=== PATIENT | female | born 1955 | race Caucasian/White ===

== ENCOUNTER 2019-12-27 12:29 | Outpatient (CLI) | payer MEDICARE, BC, SELFPAY ==
--- NOTE | ~2019-12-27 | XR_ITS ---
EXAMINATION: XR abdomen/kub 1V EXAM DATE: 12/27/2019 12:52 INDICATION: Kidney stones. TECHNIQUE: Frontal projection(s) of the abdomen for interpretation. Comparison is made to prior exami nation from 03/31/2019. FINDINGS: There is expected amount of colonic stool and gas. No small bowel dilation, nonobstructiv e bowel gas pattern. Probable reidentification of right nephrolithiasis, may measure up to 5 or 6 mm , but there is stool obscuring both renal contours. There is no organomegaly suspected. The bones are unremarkable. There is no free intraperitoneal air. The lung bases are clear. IMPRESSION: Probable right nephrolithiasis. Reviewed, dictated and finalized at location A.
== END 2019-12-27 12:30 | disposition home or self-care (01) ==
LOC: ANHIMG 12:39
PROVIDERS: PCP Family Medicine; Visit Provider Urology
DX: N20.0 Calculus of kidney (principal)
CPT/HCPCS: 74018

== ENCOUNTER 2020-12-31 09:27 | Outpatient (CLI) | payer MEDICARE, BC, SELFPAY ==
--- NOTE | ~2020-12-31 | XR_ITS ---
EXAMINATION: XR abdomen/kub 1V INDICATION: Calculus of kidney TECHNIQUE: Supine views of the abdomen were obtained on 2 radiographs. COMPARISON: 12/27/2019 FINDINGS: Bowel contents project over the kidneys limiting sensitivity for renal stones. There appear to be at least four stones of the right kidney measuring up to 5 mm. No definite stones are identifi ed in the left kidney, along the expected courses of the ureters, or within the urinary bladder. A mo derate volume of colonic stool is present. There is mild osteoarthritis of the hips. Moderate lumbar spondylosis is noted. IMPRESSION: 1. Likely right nephrolithiasis. Reviewed, dictated and finalized at location B.
== END 2020-12-31 09:28 | disposition home or self-care (01) ==
LOC: ANHIMG 09:33
PROVIDERS: PCP Family Medicine; Visit Provider Urology
DX: N20.0 Calculus of kidney (principal)
CPT/HCPCS: 74018

== ENCOUNTER 2021-08-15 15:53 | Outpatient (CLI) | payer MEDICARE, BC, SELFPAY ==
--- NOTE | ~2021-08-15 | CT_ITS ---
EXAMINATION: CT abdomen pelvis wo con DATE: 08/15/2021 16:15 INDICATION: Calculus of kidney. TECHNIQUE: Computed tomography (CT) of the abdomen and pelvis was performed without intravenous contr ast. Automated exposure control and iterative reconstruction technique were employed. The dose-length product was 267.23 mGy-cm. COMPARISON: CT abdomen and pelvis 02/16/2019 FINDINGS: The visualized portions of the lung bases demonstrate a calcified right lung nodule, consis tent with old granulomatous disease. No pleural effusion. The heart size is normal. No pericardial ef fusion. There are surgical changes in the stomach. There is a small sliding hiatal hernia. Calcified right hilar lymph nodes are consistent with old granulomatous disease. Calcifications in the liver an d spleen are consistent with old granulomatous disease. The gallbladder is normal in size. The pancre as and adrenal glands are normal. There is cortical thinning of the kidneys. There is a 6 mm cyst in left kidney. There are 7 stones in right kidney measuring up to 8 mm. There are 2 stones in left kidn ey measuring up to 3 mm. There is diverticulosis of the colon without evidence of diverticulitis. The appendix is normal. There are no pathologically enlarged lymph nodes. There is no free intraperitone al fluid. There is severe thoracolumbar spondylosis. IMPRESSION: 1. Bilateral nonobstructing kidney stones. Reviewed, dictated and finalized at location E. WO[employer]
== END 2021-08-15 15:54 | disposition home or self-care (01) ==
LOC: ANHIMG 15:57
PROVIDERS: PCP Family Medicine; Visit Provider Urology
DX: N20.0 Calculus of kidney (principal)
CPT/HCPCS: 74176

== ENCOUNTER 2021-09-04 08:12 | Outpatient (CLI) | payer MEDICARE, BC, SELFPAY ==
--- NOTE | 2021-09-04 08:26 | ECG_ITS ---
Measurements Intervals Richards Rate: 66 P: 39 NH: 142 QRS: 20 QRSD: 78 T: 48 QT: 362 QTc: 381 Interpretive Statements SINUS RHYTHM NORMAL ECG Electronically Signed On 09-04-2021 9:59:41 ANIMAL SKINNER by Bandar Hawk M.D.
[2021-09-04 08:49] LABS: Hematocrit 39.2 % (37.0-47.0); Hemoglobin 13.2 g/dL (12.0-15.0)
[2021-09-04 08:58] LABS: Prothrombin Time 12.7 Seconds (11.1-14.7)
[2021-09-04 08:59] LABS: Partial Thromboplastin Time 26.9 SECONDS (22.3-36.8)
[2021-09-04 09:00] LABS: Anion Gap 5 mmol/L (8-16); Blood Urea Nitrogen 17 mg/dL (7-17); Calcium 9.1 mg/dL (8.4-10.2); Carbon Dioxide 32 mmol/L (22-30); Chloride 102 mmol/L (98-107); Estimated Glomerular Filt Rate > 60; Glucose 135 mg/dL (65-110); Potassium 4.4 mmol/L (3.4-5.0); Sodium 139 mmol/L (137-145)
== END 2021-09-04 08:13 | disposition home or self-care (01) ==
LOC: ANHSURGERY 08:18
PROVIDERS: Anesthesiology; PCP Family Medicine; Visit Provider Urology
DX: Z01.818 Encounter for other preprocedural examination (principal); N20.0 Calculus of kidney; I10 Essential (primary) hypertension; E11.9 Type 2 diabetes mellitus without complications; Z79.4 Long term (current) use of insulin; D64.9 Anemia, unspecified
CPT/HCPCS: 36415; 80048; 85014; 85018; 85610; 85730; 87086; 87088; 93005

== ENCOUNTER 2021-09-12 01:55 | Day surgery (SDC) | payer MEDICARE, BC, SELFPAY ==
[2021-09-02 09:37] VITALS: BMI 28.3
--- NOTE | 2021-09-02 09:51 | PC.NURSE ---
Report to the Outpatient Waiting Room, entrance under the green pavilion located off [facility], at time _0600_ on date _09/12/21__. OR Time: __0730__. - You and your visitor will be asked a series of questions to screen for COVID 19 for your protection. - A mask is required within the hospital. Preoperative COVID Testing Requirements: NONE Patients may have clear liquids (water, carbonated beverages, clear teas, apple juice) until 3 hours prior to surgery (0430 AM) with a maximum of 20 ounces. - No food from midnight until time of surgery Take the following medications with a SIP of water the morning of surgery: _LEVOTHYROXINE__ Medications to discontinue per DR. KYLE - ALL VITAMINS AND SUPPLEMENTS, PT STATES 7 DAYS PRIOR TO SURGERY_ Date to take last dose__09/04/21___ Please no make-up, nail czech, hairspray, perfume, deodorant, or body powder the day of surgery. No jewelry (including any body piercings) or valuables the day of surgery, leave them at home. Please take a shower or bath the night before, or the morning of, surgery with an antibacterial soap. Wear comfortable, loose fitting clothing. - Jewelry must be removed prior to entering the operating room. Rings and piercings that are not removed may be cut off. - The hospital will not accept responsibility for valuables. - Please leave all valuables, including medications, at home the day of surgery. If you are going home after surgery, a licensed moving van driver must drive you home. - NO public transportation without another adult. - We recommend that an adult stay with you for 24 hours following discharge. - We also recommend that you do not drive, make important decision, drink alcoholic beverages, or take any drugs that were not prescribed by your health care provider for at least 24 hours after your discharge time. One visitor will be allowed to accompany the patient into the hospital. Patients visitor will be instructed to remain with patient at all times or leave the building. We will allow the visitor to come back to the postoperative area when patient is ready. Follow any additional instructions given to you from your surgeon. Telephone instructions given to ___PT and asked if any additional questions and then verbalized understanding. Patient advised to call surgeon office or pre surgery nurse liaison [phone] if any additional questions.
[2021-09-12] VITALS (7 sets, daily range): BP systolic 113–147; BP diastolic 72–86; PULSE 56–75; RESP 10–18; TEMP 36.1–36.4; O2SAT 100; BMI 28.1
--- NOTE | ~2021-09-12 | XR_ITS ---
EXAMINATION: XR abdomen/kub 1V DATE: 09/12/2021 06:07 INDICATION: Urolithiasis. TECHNIQUE: A supine view of the abdomen on 2 radiographs was obtained. COMPARISON: Abdomen radiograph 12/31/2020, CT abdomen and pelvis 08/15/2021 FINDINGS: There are no dilated loops of bowel. There are multiple stones in right kidney measuring up to 8 mm. IMPRESSION: 1. Multiple stones in right kidney measuring up to 8 mm. Reviewed, dictated and finalized at location A. R [employer]ES[employer]TAIN
--- NOTE | 2021-09-12 06:32 | WPDHPUPDATE1 ---
History and Physical Update Update Date/Time: 09/12/21 06:32 History and Physical has been reviewed, including an updated exam of the patient. There are NO changes in the patient's condition. Risks, benefits, and alternatives have been discussed and questions answered. Patient agrees to proceed with procedure.
--- NOTE | 2021-09-12 06:45 | SUR.PREOP ---
0605; PT HAS GLUCOSE MONITOR TO RT UPPER/OUTER ARM
--- NOTE | 2021-09-12 07:15 | WPDANESEPPF ---
Anes - Initial Pre Proc Eval Procedure: Operation Date: 09/12/21 07:30 Proposed Procedures p Right Extracorporeal Shock Wave Lithotripsy, - Misha Huddleston MD s Cystoscopy, Right Stent Placement - Misha Huddleston MD Date/Time: 09/12/21 07:15 Surgeon: Misha Huddleston MD Pre Op Diagnosis: right kidney stone Patient Data Age: 65 Gender: F Height: 1.68 m Weight: 79.1 kg Last Vital Signs Temp 36.4 C L 09/12/21 06:44 Pulse 75 09/12/21 06:44 Resp 18 09/12/21 06:44 BP 122/74 09/12/21 06:44 Pulse Ox 100 09/12/21 06:44 Allergies Allergy/AdvReac Type Severity Reaction Status Date / Time ibuprofen AdvReac Mild H/O Verified 09/12/21 06:22 GASTRIC BYPASS pseudoephedrine AdvReac Unknown Agitated Verified 09/12/21 06:22 Home Medications Medication Instructions Recorded Confirmed Type roojbea-sfnprtvmc-torv tablet 1 tablet PO BID 07/04/19 09/12/21 History cetirizine 10 mg tablet 10 mg PO DAILY 07/04/19 09/12/21 History cholecalciferol (vitamin D3) 50 2,000 unit PO DAILY 07/04/19 09/12/21 History mcg (2,000 unit) tablet mecobalamin (vitamin B12) 1,000 1,000 mcg SUBLINGUAL EVERY OTHER 07/04/19 09/12/21 History mcg disintegrating DAY tablet,sublingual jswhwndt-lhjnlwe-dqh-iron 18 mg-FA 1 tablet PO BID 07/04/19 09/02/21 History 400 mcg-vit K 80 mcg-hrb#244 tablet vitamin E (dl, acetate) 180 mg 800 unit PO DAILY 07/04/19 09/12/21 History (400 unit) capsule docusate sodium 100 mg capsule 100 mg PO BID #180 cap 01/12/20 09/02/21 Rx insulin glargine 100 unit/mL (3 9 unit SUB-Q QAM ml 01/12/20 09/02/21 History mL) subcutaneous pen insulin lispro 100 unit/mL See Rx Instructions .ROUTE 01/12/20 09/02/21 History subcutaneous pen .COMPLEX ml blood-glucose meter,continuous #1 ea 07/09/20 07/14/21 History blood-glucose sensor #3 ea 07/09/20 07/14/21 History blood-glucose transmitter #1 ea 07/09/20 07/14/21 History ferrous sulfate 325 mg (65 mg 325 mg PO DAILY #90 tablet 07/14/21 09/12/21 Rx iron) tablet metformin 500 mg tablet 500 mg PO BID #180 tablet 07/14/21 09/02/21 Rx semaglutide 0.5 mg SUBCUT WEEKLY ml 07/14/21 09/02/21 History Lactobacillus acidophilus 10,000 mmu cells PO DAILY 09/02/21 09/12/21 History [Probiotic] biotin 5,000 mcg PO DAILY 09/02/21 09/12/21 History doxycycline hyclate 100 mg QAM 09/02/21 09/02/21 History levothyroxine 88 mcg PO QAM 09/02/21 09/12/21 History lisinopril 2.5 mg PO QAM 09/02/21 09/02/21 History montelukast [Singulair] 10 mg PO HS 09/02/21 09/02/21 History rosuvastatin 5 mg PO HS 09/02/21 09/02/21 History Patient hx anesthesia problems: none Family hx anesthesia problems: other (slow to awaken) Results Review: All pre-operative results and documents have been reviewed as part of the pre-operative evaluation. [facility] Past Medical History Medical History Essential (primary) hypertension HLD (hyperlipidemia) Hypothyroidism NAFL (nonalcoholic fatty liver) TEJAL (obstructive sleep apnea) Type 2 diabetes mellitus with hyperglycemia, with long-term current use of insulin Unspecified asthma, uncomplicated Surgical History Surgical History History of carpal tunnel release Status post gastric bypass for obesity Family History Family History Sister Family history of obesity Family history of rheumatoid arthritis Family history of type 2 diabetes mellitus Mother Hypertension Family history of renal failure Father Family history of hypothyroidism Family history of coronary artery disease Family history of type 2 diabetes mellitus Social History Social History Smoking status: Never smoker Second hand tobacco smoke exposure: No Alcohol intake: never Substance use: never Substance use type:
[2021-09-12] MEDS: LACTATED RINGERS 1,000 ML 30 ML IV CONT (07:20)
[2021-09-12] MEDS: ceFAZolin 2 GM/D5W 50 ML 2 GM/50 ML BAG IVPB (07:25)
--- NOTE | 2021-09-12 07:50 | P.OP_ITS ---
Procedure Note - Detailed Date of Procedure 09/12/21 Pre-op Diagnosis Right kidney stone Post-op Diagnosis Same Procedure Performed Cysto., right ureteral stent placement, right ESWL Surgeon Misha Huddleston MD Anesthesia General Description of Procedure The patient was brought to the operative suite where she was placed in the frog- legged position on the Dornier lithotripter table. Flexible cystoscopy was undertaken with a 16F flexible cystoscopy. Her urethra and bladder neck were endoscopically normal. The bladder mucosa was normal and there was a single, orthotopic ureteral orifice bilaterally. A 0.035 guidewire was advanced into the right renal pelvis under fluoroscopy. A 4.8F J-J ureteral stent was positioned with the proximal coil in the renal pelvis and the distal coil in the bladder. The patient was then repositioned in the supine position and the focal point of the lithotriptor was placed at the uppermost of several (3 dominant collections) stones in the right kidney. A total of 2500 shocks were delivered at a power setting of 4. There appeared to be good fragmentation of the stone. The patient tolerated the procedure well and was taken to the recovery room in good condition. Estimated Blood Loss 0 Drains Yes Packing No Pathology None sent Complications No immediate complications Condition Stable Disposition PACU
[2021-09-12 08:53] LABS: Glucose Point of Care 88 mg/dl (65-105)
== END 2021-09-12 10:08 | disposition home or self-care (01) ==
PROVIDERS: PCP Family Medicine; Visit Provider Urology
PROC: (CPT 50590; principal; 2021-09-12 07:30)
PROC: (CPT 52352; 2021-09-12 07:30)
DX: N20.0 Calculus of kidney (principal); I10 Essential (primary) hypertension; E78.5 Hyperlipidemia, unspecified; E03.9 Hypothyroidism, unspecified; K75.81 Nonalcoholic steatohepatitis (NASH); G47.33 Obstructive sleep apnea (adult) (pediatric); E11.9 Type 2 diabetes mellitus without complications; J45.909 Unspecified asthma, uncomplicated; Z98.84 Bariatric surgery status; Z79.4 Long term (current) use of insulin; Z79.84 Long term (current) use of oral hypoglycemic drugs; Z79.899 Other long term (current) drug therapy
CPT/HCPCS: 52332; 50590; 74018; 82948; A9270; C1769; C2617; J0131; J0690; J2250; J2405; J2704; J7030; J7120

== ENCOUNTER 2021-09-19 13:01 | Outpatient (CLI) | payer MEDICARE, BC, SELFPAY ==
--- NOTE | ~2021-09-19 | XR_ITS ---
XR abdomen/kub 1V 09/19/2021 13:22 Indication: Renal stones Procedure: KUB Comparison: Comparison to multiple prior studies sequentially, with oldest reviewed study dated 03/31. Findings: There are right renal stones. The left kidney is obscured by bowel content, although no def inite left renal stones are seen. There is a right internal ureteral stent. Bowel gas pattern is nono bstructive. There is large amount of retained fecal material in the colon. Impression: 1: Right nephrolithiasis with right internal ureteral stent in expected position. Reviewed, dictated and finalized at location B. Impression: 1: Right nephrolithiasis with right internal ureteral stent in expected positio n.
== END 2021-09-19 13:02 | disposition home or self-care (01) ==
PROVIDERS: PCP Family Medicine; Visit Provider Urology
DX: N20.0 Calculus of kidney (principal)
CPT/HCPCS: 74018

== ENCOUNTER 2021-10-02 10:27 | Outpatient (CLI) | payer MEDICARE, BC, SELFPAY ==
--- NOTE | ~2021-10-02 | XR_ITS ---
XR abdomen/kub 1V DATE: 10/02/2021 10:50 INDICATION: Increasing abdominal pain 2 weeks after lithotripsy of right kidney TECHNIQUE: AP projection, 2 views COMPARISON: 09/19/2021 KUB FINDINGS: Interval removal of right internal urinary stent since 09/19/2021; since that date, there is now a 5.3 x 8.3 mm calcified calculus overlying the distal right ureter.. Another new finding is an approximately 5 x 6.8 mm calcification overlies the base of the right pelvis, either the very distal right ureter or urinary bladder. Approximately 5 calcifications are noted overlying the right renal silhouette, the largest measuring approximately 8 mm at the lower pole. Approximately 3 or 4 smaller calcifications overlying the upper pole of the right kidney. Prominent bowel gas and fecal shadows overlie the left kidney, limiting evaluation. Noncontrast CT ab domen pelvis would be more sensitive and accurate for detection of urinary tract calculi. There is a prominent amount of fecal material in the rectum and colon, particularly the right colon a nd proximal to mid transverse colon. There is gaseous distention of multiple small bowel and colon se gments but no apparent bowel obstruction. No visceromegaly is evident. IMPRESSION: Removal of right internal urinary stent since 09/19/2021; there are 2 large calcified calc divina in the distal right ureter and/or urinary bladder since 09/19/2021, previously in the right renal area. Right nephrolithiasis Approximately 5.3 x 8.3 mm calcified calculus of distal right ureter Reviewed, dictated and finalized at Location A. Reviewed, dictated and finalized at location A. IMPRESSION: Removal of right internal urinary stent since 09/19/2021; there are 2 large calcified calculi in the distal right ureter and/or urinary bladder sin ce 09/19/2021, previously in the right renal area. Right nephrolithiasis Approximately 5.3 x 8.3 mm calcified calculus of distal right ureter
== END 2021-10-02 10:28 | disposition home or self-care (01) ==
LOC: ANHIMG 10:30
PROVIDERS: PCP Family Medicine; Visit Provider Urology
DX: N20.2 Calculus of kidney with calculus of ureter (principal)
CPT/HCPCS: 74018

== ENCOUNTER 2021-10-08 10:55 | Outpatient (CLI) | payer MEDICARE, BC, SELFPAY ==
--- NOTE | ~2021-10-08 | XR_ITS ---
EXAM: XR abdomen/kub 1V HISTORY: BILATERAL CALCULUS OF KIDNEY, ESWL (09/12), PAIN COMPARISON: 10/02/2021 FINDINGS: Exam limited by overlying bowel gas and fecal material. Normal bowel gas pattern. No organ omegaly. Stable right upper pole calculi. The 9 mm right inferior pole calculus has shifted into the direction and location of the renal pelvis. The 8 mm distal right ureteral stone (more proximal of th e two noted on the right in the prior study) has advanced several centimeters. The most distal 7 mm s tone on the right is no longer visualized and may have passed. No definite left-sided calculi. Suture material over the left lower abdomen. Right pelvic phlebolith. IMPRESSION: Interval advancement of the right inferior pole stone and the 8 mm distal right ureteral stone. Likel y interval passage of the most distal 7 mm stone. Reviewed, dictated and finalized at location K. IMPRESSION: Interval advancement of the right inferior pole stone and the 8 mm distal right ureteral stone. Likely interval passage of the most distal 7 mm stone.
== END 2021-10-08 10:56 | disposition home or self-care (01) ==
PROVIDERS: PCP Family Medicine; Visit Provider Urology
DX: N20.0 Calculus of kidney (principal)
CPT/HCPCS: 74018

== ENCOUNTER 2021-10-10 01:06 | Day surgery (SDC) | payer MEDICARE, BC, SELFPAY ==
[2021-10-09 14:40] VITALS: BMI 28.0
--- NOTE | 2021-10-09 14:44 | PC.NURSE ---
Report to the Outpatient Waiting Room, entrance under the green pavilion located off [facility], at time _1100__ on date _10/10/21_. OR Time: __1300__. - You and your visitor will be asked a series of questions to screen for COVID 19 for your protection. - A mask is required within the hospital. Preoperative COVID Testing Requirements: NONE Patients may have clear liquids (water, carbonated beverages, clear teas, apple juice) until 3 hours prior to surgery (1000 AM) with a maximum of 20 ounces. - No food from midnight until time of surgery Take the following medications with a SIP of water the morning of surgery: _ 1/2 OF AM INSULIN DOSE, LEVOTHYROXINE, PAIN PILL IF NEEDED_ Medications to discontinue per physician _ALL VITAMINS, HERBAL SUPPLEMENTS, PROBIOTIC OF TODAY_ Date to take last dose Please no make-up, nail paraguayan, hairspray, perfume, deodorant, or body powder the day of surgery. No jewelry (including any body piercings) or valuables the day of surgery, leave them at home. Please take a shower or bath the night before, or the morning of, surgery with an antibacterial soap. Wear comfortable, loose fitting clothing. - Jewelry must be removed prior to entering the operating room. Rings and piercings that are not removed may be cut off. - The hospital will not accept responsibility for valuables. - Please leave all valuables, including medications, at home the day of surgery. If you are going home after surgery, a licensed local city driver must drive you home. - NO public transportation without another adult. - We recommend that an adult stay with you for 24 hours following discharge. - We also recommend that you do not drive, make important decision, drink alcoholic beverages, or take any drugs that were not prescribed by your health care provider for at least 24 hours after your discharge time. One visitor will be allowed to accompany the patient into the hospital. Patients visitor will be instructed to remain with patient at all times or leave the building. We will allow the visitor to come back to the postoperative area when patient is ready. Follow any additional instructions given to you from your surgeon. Telephone instructions given to ___PT and asked if any additional questions and then verbalized understanding. Patient advised to call surgeon office or pre surgery nurse liaison [phone] if any additional questions.
[2021-10-10] VITALS (8 sets, daily range): BP systolic 110–126; BP diastolic 53–77; PULSE 75–90; RESP 13–15; TEMP 36.3–36.8; O2SAT 97–100; BMI 27.1
--- NOTE | ~2021-10-10 | XR_ITS ---
EXAMINATION: XR stent kub - surgery EXAM DATE: 10/10/2021 14:05 INDICATION: Right ureteral stent placement. TECHNIQUE: Fluoroscopy used during XR stent kub - surgery performed by Dr. Misha Huddleston MD. R adiologist was not present for the imaging or procedure. Total fluoroscopic time of 77 seconds. The DAP for this procedure was 0.9 mGym2. A total of 3 images sent to PACS from the exam. There is no prior study for comparison. FINDINGS: There is a right-sided double-J ureteral stent in expected position. Correlate with ankit nazario note. IMPRESSION: Fluoroscopy used during XR stent kub - surgery. Reviewed, dictated and finalized at location A.
--- NOTE | 2021-10-10 07:22 | WPDHPUPDATE1 ---
History and Physical Update Update Date/Time: 10/10/21 07:22 History and Physical has been reviewed, including an updated exam of the patient. There are NO changes in the patient's condition. Risks, benefits, and alternatives have been discussed and questions answered. Patient agrees to proceed with procedure.
[2021-10-10 11:58] LABS: Glucose Point of Care 149 mg/dl (65-105)
[2021-10-10] MEDS: LACTATED RINGERS 1,000 ML 30 ML IV CONT (12:33)
--- NOTE | 2021-10-10 13:03 | WPDANESEPPF ---
Anes - Initial Pre Proc Eval Procedure: Operation Date: 10/10/21 13:00 Proposed Procedures p Cystoscopy, Right Ureteroscopy with Stone Extraction, Possible Right Retrograde Pyelogram, Possible Right Stent Placement - Misha Huddleston MD s Possible Holmium Laser Procedure - Misha Huddleston MD Date/Time: 10/10/21 13:03 Surgeon: Misha Huddleston MD Pre Op Diagnosis: right ureteral stones Patient Data Age: 65 Gender: F Height: 1.68 m Weight: 76.2 kg Last Vital Signs Temp 36.8 C 10/10/21 12:29 Pulse 81 10/10/21 12:29 Resp 14 10/10/21 12:29 BP 122/69 10/10/21 12:29 Pulse Ox 100 10/10/21 12:29 Allergies Allergy/AdvReac Type Severity Reaction Status Date / Time ibuprofen AdvReac Mild H/O Verified 10/10/21 12:36 GASTRIC BYPASS pseudoephedrine AdvReac Unknown Agitated Verified 10/10/21 12:36 Home Medications Medication Instructions Recorded Confirmed Type mfmrkon-gzwfjklee-spcj tablet 1 tablet PO BID 07/04/19 10/09/21 History cetirizine 10 mg tablet 10 mg PO DAILY 07/04/19 10/09/21 History cholecalciferol (vitamin D3) 50 2,000 unit PO DAILY 07/04/19 10/09/21 History mcg (2,000 unit) tablet mecobalamin (vitamin B12) 1,000 1,000 mcg SUBLINGUAL EVERY OTHER 07/04/19 10/09/21 History mcg disintegrating DAY tablet,sublingual lkvkerzj-fyupprt-ebw-iron 18 mg-FA 1 tablet PO BID 07/04/19 10/09/21 History 400 mcg-vit K 80 mcg-hrb#244 tablet vitamin E (dl, acetate) 180 mg 800 unit PO DAILY 07/04/19 10/09/21 History (400 unit) capsule docusate sodium 100 mg capsule 100 mg PO BID #180 cap 01/12/20 10/09/21 Rx insulin glargine 100 unit/mL (3 9 unit SUB-Q QAM ml 01/12/20 10/09/21 History mL) subcutaneous pen insulin lispro 100 unit/mL See Rx Instructions .ROUTE 01/12/20 10/09/21 History subcutaneous pen .COMPLEX ml blood-glucose meter,continuous #1 ea 07/09/20 10/09/21 History blood-glucose sensor #3 ea 07/09/20 10/09/21 History blood-glucose transmitter #1 ea 07/09/20 10/09/21 History ferrous sulfate 325 mg (65 mg 325 mg PO DAILY #90 tablet 07/14/21 10/09/21 Rx iron) tablet metformin 500 mg tablet 500 mg PO BID #180 tablet 07/14/21 10/09/21 Rx semaglutide 0.5 mg SUBCUT WEEKLY ml 07/14/21 10/09/21 History Probiotic 10,000 mmu cells PO DAILY 09/02/21 10/09/21 History biotin 5,000 mcg PO DAILY 09/02/21 10/09/21 History doxycycline hyclate 100 mg QAM 09/02/21 10/09/21 History levothyroxine 88 mcg PO QAM 09/02/21 10/10/21 History lisinopril 2.5 mg PO QAM 09/02/21 10/09/21 History montelukast [Singulair] 10 mg PO HS 09/02/21 10/09/21 History rosuvastatin 5 mg PO HS 09/02/21 10/09/21 History cephalexin 500 mg PO Q8H #9 cap 09/12/21 10/09/21 Rx hydrocodone-acetaminophen 1 - 2 tablet PO Q6H PRN #20 tablet 09/12/21 10/10/21 Rx tamsulosin 0.4 mg PO HS 10/09/21 10/09/21 History Laboratory Tests 10/10/21 11:54 POC Capillary Glucose 149 mg/dl H mg/dl (65-105) Patient hx anesthesia problems: none Family hx anesthesia problems: none Results Review: All pre-operative results and documents have been reviewed as part of the pre-operative evaluation. [facility] Past Medical History Medical History Essential (primary) hypertension HLD (hyperlipidemia) Hypothyroidism NAFL (nonalcoholic fatty liver) TEJAL (obstructive sleep apnea) Type 2 diabetes mellitus with hyperglycemia, with long-term current use of insulin Unspecified asthma, uncomplicated Surgical History Surgical History History of carpal tunnel release Status post gastric bypass for obesity Family History Family History Sister Family history of obesity Family history of rheumatoid arthritis Family history of type 2 diabetes mellitus Mother Hypertension Family history of renal failure Father Family history of hypothyroidism Family
[2021-10-10] MEDS: ceFAZolin 2 GM/D5W 50 ML 2 GM/50 ML BAG IVPB (13:14)
--- NOTE | 2021-10-10 14:00 | W.PM.PROC2 ---
Procedure Note - Detailed Date of Procedure 10/10/21 Pre-op Diagnosis Right ureteral and renal stones Post-op Diagnosis Same Procedure Performed Cystoscopy, right ureteroscopy with laser lithotripsy of ureteral and renal calculus, right ureteral stent placement Surgeon Misha Huddleston MD Anesthesia General Description of Procedure The patient was brought to the operative suite where she is prepped and draped in a routine sterile fashion while in the dorsal lithotomy position after the uneventful induction of a general LMA anesthetic. A 19F rigid cystoscope was placed in the bladder. The patient had no evidence of urethral stricture or bladder neck contracture. The bladder mucosa was endoscopically normal without hyperemia or neoplasm. There was a single, orthotopic ureteral orifice bilaterally. A 0.035 glidewire was advanced into the right renal pelvis under fluoroscopy. The distal ureter was dilated with an 8F/10F ureteral dilator. Ureteroscopy was undertaken with a short tapered semi-rigid ureteroscope. With ureteroscopy I fractured the stone into smaller pieces using a 273micron Holmium laser fiber with the Holmium laser. I was able to then extract the stone pieces using a 1.9F Escape, disposable stone basket. I then advanced a 7.5 F flexible ureteral scope into the right renal pelvis and fractured the small all stone in the right lower pole calyx with the same holmium laser fiber. Due to the extent of this manipulation I did place a 4.8F double-J ureteral stent. The proximal coil of the stent was confirmed to be in the renal pelvis and the distal coil in the bladder. The patient's bladder was emptied and he was taken to the recovery room having tolerated this procedure well. Estimated Blood Loss 0 Drains No Packing No Pathology None sent Complications No immediate complications Condition Stable Disposition PACU
== END 2021-10-10 16:20 | disposition home or self-care (01) ==
PROVIDERS: PCP Family Medicine; Visit Provider Urology
PROC: (CPT 52352; principal; 2021-10-10 13:00)
PROC: (CPT 52356; 2021-10-10 13:00)
DX: N20.2 Calculus of kidney with calculus of ureter (principal); I10 Essential (primary) hypertension; E78.5 Hyperlipidemia, unspecified; E03.9 Hypothyroidism, unspecified; E11.9 Type 2 diabetes mellitus without complications; G47.33 Obstructive sleep apnea (adult) (pediatric); J45.909 Unspecified asthma, uncomplicated; K76.0 Fatty (change of) liver, not elsewhere classified; Z98.84 Bariatric surgery status; Z79.4 Long term (current) use of insulin; Z79.84 Long term (current) use of oral hypoglycemic drugs
CPT/HCPCS: 52356; 82365; 82948; 88300; C1769; C2617; J0690; J1100; J2250; J2405; J2704; J3010; J7120; Q9966

== ENCOUNTER 2022-02-09 14:47 | Outpatient (CLI) | payer MEDICARE, BC, SELFPAY ==
--- NOTE | ~2022-02-09 | XR_ITS ---
XR abdomen/kub 1V 02/09/2022 15:05 INDICATION: Ureteral stone. TECHNIQUE: KUB COMPARISON: None FINDINGS: Bowel gas pattern is normal. Moderate colonic fecal loading. There is no evidence of free a ir, mass, organomegaly, ascites or obstruction. No abnormal calculi are seen. The bones appear inta ct. IMPRESSION: 1: No acute abdominal abnormality identified. Reviewed, dictated and finalized at location A.
--- NOTE | ~2022-02-09 | CT_ITS ---
EXAMINATION: CT abdomen pelvis wo con DATE: 02/09/2022 15:11 INDICATION: Ureteral calculi TECHNIQUE: Computed tomography (CT) of the abdomen and pelvis was performed without intravenous contr ast. Automated exposure control and iterative reconstruction technique were employed. Exam dose: 246 .95 mGy-cm total exam DLP. COMPARISON: 02/09/2022 KUB 08/15/[address] abdomen pelvis FINDINGS: Calcified middle lobe pulmonary granuloma. The lower lung zones are clear of infiltrate or consolidation. Normal heart size. Coronary artery calcification. No pericardial or pleural effusion. Small sliding hiatal hernia. Postoperative change at the esophagogastric area and stomach. The gallbladder is present. No bile duct or pancreatic duct dilatation is detected. Occasional calcified hepatic and splenic granulomas consistent with old granulomatous disease. Normal morphology of the adrenal glands. Approximately 3.9 x 7.4 x 6.4 mm distal right ureteral calculus with prominent proximal right hydrour eteronephrosis. Occasional bilateral nonobstructing renal calculi. Irregularity of the outlines of both kidneys likely due to bilateral chronic pyelonephritis. No left ureteral calculus or left hydronephrosis. The urinary bladder is unremarkable. Status post hysterectomy. There is normal caliber and mild calcification of the abdominal aorta. No intraperitoneal or retroper itoneal or pelvic mass lesion or adenopathy or ascites. There is diverticulosis of the colon; no CT evidence of diverticulitis. There is a prominent amount o f fecal material in the colon. No bowel obstruction or intraperitoneal free air is detected. Small fat-containing umbilical hernia. Degenerative changes of the thoracic and lumbar spine including prominent degenerative disc disease, particularly severe at T12-L1 and and L5-S1 and moderately severe at T11-12, L1-2. IMPRESSION: Approximately 3.9 x 7.4 x 6.4 mm distal right ureteral calculus with severe right hydron ephrosis Small bilateral nonobstructing renal calculi; considerably diminished stone burden of the right kidne y since Reviewed, dictated and finalized at Location A. Reviewed, dictated and finalized at location B. IMPRESSION: Approximately 3.9 x 7.4 x 6.4 mm distal right ureteral calculus wi th severe right hydronephrosis Small bilateral nonobstructing renal calculi; considerably diminished stone bur den of the right kidney since
== END 2022-02-09 14:48 | disposition home or self-care (01) ==
PROVIDERS: PCP Family Medicine; Visit Provider Urology
DX: N20.1 Calculus of ureter (principal); N13.30 Unspecified hydronephrosis; N20.0 Calculus of kidney
CPT/HCPCS: 74018; 74176

== ENCOUNTER 2022-02-12 01:32 | Day surgery (SDC) | payer MEDICARE, BC, SELFPAY ==
[2022-02-10 13:34] VITALS: BMI 28.4
--- NOTE | 2022-02-10 13:40 | PC.NURSE ---
Report to the Outpatient Waiting Room, entrance under the green pavilion located off [facility], at time _0930 on date 02/12/22__. OR Time: ___1130. - You and your visitor will be asked a series of questions to screen for COVID 19 for your protection. - Only one visitor is allowed at this time. - The patient visitor is requested to leave or wait in car when not with patient. - A mask is required within the hospital. Patients may have clear liquids (water, carbonated beverages, clear teas, apple juice) until 3 hours prior to surgery with a maximum of 20 ounces. - No food from midnight until time of surgery - Infants may have breast milk until 4 hours before surgery, infant formula 6 hours prior to surgery. - Children will be allowed to drink immediately following surgery. If applicable, please bring a bottle or sippy cup to assist with drinking. Juice, water, soda, and popsicles are readily available. For infants on formula, please bring formula the day of surgery. Pacifiers are allowed. Take the following medications with a SIP of water the morning of surgery: ____LEVOTHYROXINE Medications to discontinue per physician VITAMINS AND SUPPLIMENTS Date to take last dose 02/10/22 Please no make-up, nail indian, hairspray, perfume, deodorant, or body powder the day of surgery. No jewelry (including any body piercings) or valuables the day of surgery, leave them at home. Please take a shower or bath the night before, or the morning of, surgery with an antibacterial soap. Wear comfortable, loose fitting clothing. Children are encouraged to wear pajamas. - Jewelry must be removed prior to entering the operating room. Rings and piercings that are not removed may be cut off. - The hospital will not accept responsibility for valuables. - Please leave all valuables, including medications, at home the day of surgery. If you are going home after surgery, a licensed drivers license examiner must drive you home. - NO public transportation without another adult. - We recommend that an adult stay with you for 24 hours following discharge. - We also recommend that you do not drive, make important decision, drink alcoholic beverages, or take any drugs that were not prescribed by your health care provider for at least 24 hours after your discharge time. For Pediatric surgeries, we recommend two adults accompany the child home (only one inside the building at this time). Follow any additional instructions given to you from your surgeon. If you or anyone in your household have experienced Covid symptoms in the past week, please notify your surgeon or the nurse liaison at the phone number below for possible testing. Telephone instructions given to _PATIENT_and asked if any additional questions and then verbalized understanding. Patient advised to call surgeon office or pre surgery nurse liaison [phone] if any additional questions.
--- NOTE | 2022-02-11 07:46 | PM.HPGS ---
History of Present Illness History of Present Illness Consent: Risks, benefits, and alternatives have been discussed and questions answered. Patient agrees to proceed with procedure. Chief complaint: Right Ureteral Kidney Stone Narrative: Mahendra Allen is a 66 year old female, Who has a known recurrent stone former, recent developed right flank pain and imaging demonstrating a 6-7 mm right distal ureteral calculus in addition to small nonobstructing renal calculi. After discussion of options she has elected to proceed with endoscopic stone extraction. She is aware of the risk including, not limited to, persistent stone fragments, ureteral injury and need for a stent placement Review of Systems Cardiovascular: Cardiovascular: Denies chest pain, Denies lightheadedness, Denies palpitations and Denies dyspnea Respiratory: Respiratory: Denies dyspnea Gastrointestinal: Gastrointestinal: Denies diarrhea, Denies nausea and Denies vomiting Genitourinary: Genitourinary: Denies hematuria and Denies dysuria Endocrine: Endocrine: Denies palpitations PMFSH Past Medical History Medical History Essential (primary) hypertension HLD (hyperlipidemia) Hypothyroidism NAFL (nonalcoholic fatty liver) TEJAL (obstructive sleep apnea) Type 2 diabetes mellitus with hyperglycemia, with long-term current use of insulin Unspecified asthma, uncomplicated Surgical History Surgical History History of carpal tunnel release Status post gastric bypass for obesity Family History Family History Sister Family history of obesity Family history of rheumatoid arthritis Family history of type 2 diabetes mellitus Mother Hypertension Family history of renal failure Father Family history of hypothyroidism Family history of coronary artery disease Family history of type 2 diabetes mellitus Social History Social History Smoking status: Never smoker Second hand tobacco smoke exposure: No Alcohol intake: never Substance use: never Substance use type: does not use Living arrangements: with family Gender identity (if verbalized by the patient): Female Spiritual care concerns: No Meds Home Medications and Allergies Home Medications Medication Instructions Recorded Confirmed Type cetirizine 10 mg tablet 10 mg PO DAILY 07/04/19 02/10/22 History cholecalciferol (vitamin D3) 50 2,000 unit PO DAILY 07/04/19 02/10/22 History mcg (2,000 unit) tablet mecobalamin (vitamin B12) 1,000 1,000 mcg sublingual EVERY OTHER 07/04/19 02/10/22 History mcg disintegrating DAY tablet,sublingual xcjgtubm-fuflihx-xoy-iron 18 mg-FA 1 tablet PO BID 07/04/19 02/10/22 History 400 mcg-vit K 80 mcg-hrb#244 tablet vitamin E (dl, acetate) 180 mg 800 unit PO DAILY 07/04/19 02/10/22 History (400 unit) capsule docusate sodium 100 mg capsule 100 mg PO BID #180 caps 01/12/20 02/10/22 Rx insulin glargine 100 unit/mL (3 7 unit subcut QAM 01/12/20 02/10/22 History mL) subcutaneous pen (Basaglar KwikPen U-100 Insulin) insulin lispro 100 unit/mL 1 unit subcut PRN PRN Hyperglycemia 01/12/20 02/10/22 History subcutaneous pen (Humalog KwikPen (U-100) Insulin) blood-glucose meter,continuous #1 ea 07/09/20 02/10/22 History (Dexcom G6 Vice President Of Academic Affairs misc) blood-glucose sensor (Dexcom G6 #3 ea 07/09/20 02/10/22 History Sensor device) blood-glucose transmitter (Dexcom #1 ea 07/09/20 02/10/22 History G6 Transmitter device) ferrous sulfate 325 mg (65 mg 325 mg PO DAILY #90 tabs 07/14/21 02/10/22 Rx iron) tablet semaglutide 0.25 mg or 0.5 mg (2 50 mg subcut WEEKLY 07/14/21 02/10/22 History mg/1.5 mL) subcutaneous pen injector (Ozempic) Lactobacillus acidophilus 10 10,000 mmu cells PO DAILY 09/02/21 02/10/22 History b
--- NOTE | 2022-02-11 13:58 | WPDANESEPPF ---
Anes - Initial Pre Proc Eval Procedure: Operation Date: 02/12/22 10:45 Proposed Procedures p Cystoscopy, Right Ureteroscopy, Right Stone Extraction, Possible Retrograde Pyelogram, Possible Right Stent Placement, Possible Holmium Laser Lithotripsy - Misha Huddleston MD Date/Time: 02/11/22 13:58 Surgeon: Misha Huddleston MD Pre Op Diagnosis: Right Ureteral Kidney Stone Patient Data Age: 66 Gender: F Height: 1.68 m Weight: 80 kg Allergies Allergy/AdvReac Type Severity Reaction Status Date / Time ibuprofen AdvReac Mild H/O Verified 02/12/22 10:01 GASTRIC BYPASS pseudoephedrine AdvReac Unknown Agitated Verified 02/12/22 10:01 Home Medications Medication Instructions Recorded Confirmed Type cetirizine 10 mg tablet 10 mg PO DAILY 07/04/19 02/10/22 History cholecalciferol (vitamin D3) 50 2,000 unit PO DAILY 07/04/19 02/10/22 History mcg (2,000 unit) tablet mecobalamin (vitamin B12) 1,000 1,000 mcg sublingual EVERY OTHER 07/04/19 02/10/22 History mcg disintegrating DAY tablet,sublingual ttdiwwmd-htgzfuq-okn-iron 18 mg-FA 1 tablet PO BID 07/04/19 02/10/22 History 400 mcg-vit K 80 mcg-hrb#244 tablet vitamin E (dl, acetate) 180 mg 800 unit PO DAILY 07/04/19 02/10/22 History (400 unit) capsule docusate sodium 100 mg capsule 100 mg PO BID #180 caps 01/12/20 02/10/22 Rx insulin glargine 100 unit/mL (3 7 unit subcut QAM 01/12/20 02/10/22 History mL) subcutaneous pen (Basaglar KwikPen U-100 Insulin) insulin lispro 100 unit/mL 1 unit subcut PRN PRN Hyperglycemia 01/12/20 02/10/22 History subcutaneous pen (Humalog KwikPen (U-100) Insulin) blood-glucose meter,continuous #1 ea 07/09/20 02/10/22 History (Dexcom G6 Negative Turner Apprentice misc) blood-glucose sensor (Dexcom G6 #3 ea 07/09/20 02/10/22 History Sensor device) blood-glucose transmitter (Dexcom #1 ea 07/09/20 02/10/22 History G6 Transmitter device) ferrous sulfate 325 mg (65 mg 325 mg PO DAILY #90 tabs 07/14/21 02/10/22 Rx iron) tablet semaglutide 0.25 mg or 0.5 mg (2 50 mg subcut WEEKLY 07/14/21 02/10/22 History mg/1.5 mL) subcutaneous pen injector (Ozempic) Lactobacillus acidophilus 10 10,000 mmu cells PO DAILY 09/02/21 02/10/22 History billion cell capsule (Probiotic) biotin 2,500 mcg tablet 5,000 mcg PO DAILY 09/02/21 02/10/22 History doxycycline hyclate 100 mg tablet 100 mg QAM 09/02/21 02/10/22 History levothyroxine 88 mcg tablet 88 mcg PO QAM 09/02/21 02/10/22 History lisinopril 2.5 mg tablet 2.5 mg PO QAM 09/02/21 02/10/22 History montelukast 10 mg tablet 10 mg PO HS 09/02/21 02/10/22 History (Singulair) rosuvastatin 5 mg tablet 5 mg PO HS 09/02/21 02/10/22 History tamsulosin 0.4 mg capsule 0.4 mg PO HS 10/09/21 02/10/22 History metformin 500 mg tablet 500 mg PO BID #180 tabs 01/12/22 02/10/22 Rx pen needle, diabetic 31 gauge x #200 ea 01/12/22 02/10/22 Rx 3/16 (BD Ultra-Fine Mini Pen Needle) calcium citrate 315 mg-vitamin D3 2 tablet PO BID 02/10/22 02/10/22 History 5 mcg (200 unit) tablet (Calcium Citrate + D) Patient hx anesthesia problems: none Family hx anesthesia problems: none Results Review: All pre-operative results and documents have been reviewed as part of the pre-operative evaluation. [facility] Past Medical History Medical History (Updated 02/11/22 @ 13:58 by Luis Miguel Duque DO) Essential (primary) hypertension Hiatal hernia HLD (hyperlipidemia) Hypothyroidism NAFL (nonalcoholic fatty liver) TEJAL (obstructive sleep apnea) Type 2 diabetes mellitus with hyperglycemia, with long-term current use of insulin Unspecified asthma, uncomplicated Surgical History Surgical History (Updated 02/11/22 @ 13:58 by Luis Miguel Duque, DO) History of carpal tunnel release History of hysterectomy Status post gastric bypass for obesity Family History Family History Sister Family history of obesity Family h
[2022-02-12] VITALS (7 sets, daily range): BP systolic 117–140; BP diastolic 67–92; PULSE 56–78; RESP 12–16; TEMP 36.5–36.6; O2SAT 98–100
--- NOTE | ~2022-02-12 | XR_ITS ---
XR fluoroscopy no charge Laser stone extraction procedure TECHNIQUE: Fluoroscopy used during laser stone extraction performed by [Misha Huddleston MD] o n 05/12/2022. 69 seconds of fluoroscopy time. with 2 fluoroscopic images captured. ] FINDINGS: Correlate with procedure note. IMPRESSION: Fluoroscopy used during laser stone extraction procedure. Please refer to procedural repo rt. Reviewed, dictated and finalized at location A. IMPRESSION: Fluoroscopy used during laser stone extraction procedure. Please re radhika to procedural report.
--- NOTE | 2022-02-12 06:49 | WPDHPUPDATE1 ---
History and Physical Update Update Date/Time: 02/12/22 06:49 History and Physical has been reviewed, including an updated exam of the patient. There are NO changes in the patient's condition. Risks, benefits, and alternatives have been discussed and questions answered. Patient agrees to proceed with procedure.
[2022-02-12 09:54] LABS: Hematocrit 39.4 % (37.0-47.0); Hemoglobin 12.9 g/dL (12.0-15.0)
[2022-02-12] MEDS: LACTATED RINGERS 1,000 ML 30 ML IV CONT ×2 (10:00→13:18)
[2022-02-12 10:17] LABS: Anion Gap 6 mmol/L (8-16); Blood Urea Nitrogen 13 mg/dL (7-17); Carbon Dioxide 31 mmol/L (22-30); Chloride 102 mmol/L (98-107); Estimated CRCL calculation 56 ml/min; Estimated Glomerular Filt Rate > 60; Glucose 140 mg/dL (65-110); Potassium 4.4 mmol/L (3.4-5.0); Sodium 139 mmol/L (137-145)
[2022-02-12] MEDS: ceFAZolin 2 GM/D5W 50 ML 2 GM/50 ML BAG IVPB (12:25)
--- NOTE | 2022-02-12 13:19 | W.PM.PROC2 ---
Procedure Note - Detailed Date of Procedure 02/12/22 Pre-op Diagnosis Right Ureteral Stone Post-op Diagnosis Same Procedure Performed Cystoscopy, right ureteroscopy with laser lithotripsy and stone extraction Surgeon Misha Huddleston MD Description of Procedure patient is brought to the op suite she has prepped draped in routine sterile fashion while in dorsal lithotomy position after the uneventful induction of a general LMA anesthetic. Cystoscopy is undertaken with a 19 F rigid cystoscope. Bladder neck and urethra endoscopically normal. Bladder mucosa is normal without hyperemia. There was no intravesical foreign body or neoplasm. A 0.035 in glidewire was advanced in the right renal pelvis and the distal ureter was dilated with an 8F/10F dilator. She has a sizable stone in her distal right ureter. This was identified via a ureteroscopy with a short tapered semi-rigid ureteral scope. Using a 273 micron holmium laser fiber on a dusting mode I fractured this into multiple tiny pieces. All pieces of any significant size were extracted with a 1.9 F disposable escape stone basket. Patient had refused placement ureteral stent preoperatively. There was no compromise to the wall of the ureter but some moderate ureteral edema. Scopes and wires removed and she was taken recovery room good condition. Drains No Pathology Yes Condition Stable
[2022-02-12 13:32] LABS: Glucose Point of Care 112 mg/dl (65-105)
--- NOTE | 2022-02-12 14:53 | SUR.PHASEII ---
pt meets discharge criteria and is waiting for dr latham to sign her prescriptions
--- NOTE | 2022-02-12 15:20 | SUR.PHASEII ---
This nurse called dr latham cell phone and left a voice mail and called his office and asked them to have him come to sign scripts before he leaves. pt is waiting calmly in her room. Breathing even and unlabored. A&O
== END 2022-02-12 15:30 | disposition home or self-care (01) ==
PROVIDERS: Anesthesiology; PCP Family Medicine; Visit Provider Urology
PROC: (CPT 52352; principal; 2022-02-12 10:45)
DX: N20.1 Calculus of ureter (principal); Z79.4 Long term (current) use of insulin; I10 Essential (primary) hypertension; K44.9 Diaphragmatic hernia without obstruction or gangrene; E03.9 Hypothyroidism, unspecified; K76.0 Fatty (change of) liver, not elsewhere classified; E11.9 Type 2 diabetes mellitus without complications; G47.33 Obstructive sleep apnea (adult) (pediatric)
CPT/HCPCS: 52353; 36415; 80048; 82365; 82948; 85014; 85018; 88300; 99199; A9270; C1769; J0690; J1100; J1165; J2250; J2405; J2704; J3010; J7120

== ENCOUNTER 2022-09-22 12:52 | Outpatient (CLI) | payer MEDICARE, BC, SELFPAY ==
--- NOTE | ~2022-09-22 | XR_ITS ---
EXAMINATION: XR abdomen/kub 1V INDICATION: Calculus of kidney TECHNIQUE: Supine views of the abdomen were obtained on 2 radiographs. COMPARISON: 02/09/2022 FINDINGS: Bowel contents project over the kidneys limiting sensitivity for renal stones. No urolithia sis is identified. A moderate volume of colonic stool is present. IMPRESSION: 1. No urolithiasis identified, sensitivity limited by overlying bowel contents. Reviewed, dictated and finalized at location L.
== END 2022-09-22 12:53 | disposition home or self-care (01) ==
PROVIDERS: PCP Family Medicine; Visit Provider Urology
DX: N20.0 Calculus of kidney (principal)
CPT/HCPCS: 74018

== ENCOUNTER 2023-09-06 09:44 | Outpatient (CLI) | payer MEDICARE, BC, SELFPAY ==
--- NOTE | ~2023-09-06 | XR_ITS ---
EXAMINATION: XR abdomen/kub 1V INDICATION: Calculus of the kidney, frequent stones TECHNIQUE: Supine views of the abdomen were obtained on 2 radiographs. COMPARISON: 09/02/2022 FINDINGS: Bowel contents project over the kidneys limiting sensitivity for renal stones. No urolithia sis is identified. The bowel gas pattern is normal. There are surgical changes in the left upper quad rant. IMPRESSION: 1. No urolithiasis identified. Reviewed, dictated and finalized at location B. ERY MENDER
== END 2023-09-06 09:45 | disposition home or self-care (01) ==
PROVIDERS: PCP Family Medicine; Visit Provider Urology
DX: N20.0 Calculus of kidney (principal)
CPT/HCPCS: 74018

== ENCOUNTER 2023-09-29 02:11 | Day surgery (SDC) | payer MEDICARE, BC, SELFPAY ==
[2023-09-20 14:51] VITALS: BMI 22.6
--- NOTE | 2023-09-20 15:23 | PC.NURSE ---
Spoke with pt regarding her concerns with her prep and having had gastric bypass and unable to tolerate the entire 64 ounces of miralax prep. I discussed the suprep bowel prep and she would like to try this prep. Instructions emailed to patient.
--- NOTE | 2023-09-27 09:30 | SUR.PREOP ---
Patient called regarding upcoming procedure. Reviewed preop instructions, appointment times, and procedure prep.
[2023-09-29 09:42] VITALS: BP 133/74; PULSE 79; RESP 18; TEMP 36.7; O2SAT 100; BMI 22.1
[2023-09-29] MEDS: LACTATED RINGERS 1,000 ML 150 ML IV CONT (09:46)
--- NOTE | 2023-09-29 10:07 | WPDANESEPPF ---
Anes - Initial Pre Proc Eval Procedure: Operation Date: 09/29/23 11:00 Proposed Procedures p Colonoscopy - Chance Isidro MD Date/Time: 09/29/23 10:07 Surgeon: Chance Isidro MD Pre Op Diagnosis: melena Patient Data Age: 67 Gender: F Height: 1.68 m Weight: 62.4 kg Last Vital Signs Temp 98.0 F 09/29/23 09:42 Pulse 79 09/29/23 09:42 Resp 18 09/29/23 09:42 BP 133/74 09/29/23 09:42 Pulse Ox 100 09/29/23 09:42 O2 Del Method Room Air 09/29/23 09:42 Allergies Allergy/AdvReac Type Severity Reaction Status Date / Time ibuprofen AdvReac Mild H/O Verified 09/29/23 09:40 GASTRIC BYPASS pseudoephedrine AdvReac Unknown Agitated Verified 09/29/23 09:40 Home Medications Medication Instructions Recorded Confirmed Type cetirizine 10 mg tablet 10 mg PO DAILY 07/04/19 09/29/23 History cholecalciferol (vitamin D3) 50 2,000 unit PO DAILY 07/04/19 09/29/23 History mcg (2,000 unit) tablet akykwsxd-lurbrgl-egc-iron 18 mg-FA 1 tablet PO BID 07/04/19 09/29/23 History 400 mcg-vit K 80 mcg-hrb#244 tablet vitamin E (dl, acetate) 180 mg 800 unit PO DAILY 07/04/19 09/29/23 History (400 unit) capsule docusate sodium 100 mg capsule 100 mg PO BID #180 caps 01/12/20 09/29/23 Rx insulin lispro 100 unit/mL 1 unit subcut PRN PRN Hyperglycemia 01/12/20 09/29/23 History subcutaneous pen (Humalog KwikPen (U-100) Insulin) blood-glucose meter,continuous #1 ea 07/09/20 09/20/23 History (Dexcom G6 Exchange Operator) blood-glucose sensor (Dexcom G6 #3 ea 07/09/20 09/20/23 History Sensor device) blood-glucose transmitter (Dexcom #1 ea 07/09/20 09/20/23 History G6 Transmitter device) Lactobacillus acidophilus 10 10,000 mmu cells PO DAILY 09/02/21 09/29/23 History billion cell capsule (Probiotic) calcium citrate 315 mg-vitamin D3 2 tablet PO BID 02/10/22 09/29/23 History 5 mcg (200 unit) tablet (Calcium Citrate + D) levothyroxine 88 mcg tablet 88 mcg PO QAM #90 tabs 09/08/22 09/20/23 Rx doxycycline hyclate 100 mg tablet 100 mg PO BID #180 tabs 01/01/23 09/29/23 Rx empagliflozin 10 mg tablet 10 mg PO DAILY #30 tabs 02/08/23 09/29/23 Rx (Jardiance) semaglutide 2 mg/dose (8 mg/3 mL) 2 mg (0.75 mL) subcut WEEKLY #3 mL 02/08/23 09/29/23 Rx subcutaneous pen injector (Ozempic) metformin 500 mg tablet 500 mg PO BID #180 tabs 02/09/23 09/29/23 Rx pen needle, diabetic 31 gauge x #200 ea 02/09/23 09/20/23 Rx 3/16 (BD Ultra-Fine Mini Pen Needle) lisinopril 2.5 mg tablet See Rx Instructions .Route 05/10/23 09/29/23 Rx .COMPLEX #90 tabs montelukast 10 mg tablet 10 mg PO HS #90 tabs 05/10/23 09/29/23 Rx (Singulair) rosuvastatin 5 mg tablet 5 mg PO HS #90 tabs 05/10/23 09/29/23 Rx Patient hx anesthesia problems: none Family hx anesthesia problems: none Results Review: All pre-operative results and documents have been reviewed as part of the pre-operative evaluation. [facility] Past Medical History Medical History (Updated 08/16/23 @ 12:42 by Jagdish Zimmerman MD) Diabetes Essential (primary) hypertension Hiatal hernia HLD (hyperlipidemia) Hypothyroidism Intention tremor NAFL (nonalcoholic fatty liver) TEJAL (obstructive sleep apnea) Type 2 diabetes mellitus with hyperglycemia, with long-term current use of insulin Unspecified asthma, uncomplicated Surgical History Surgical History History of carpal tunnel release History of hysterectomy Status post gastric bypass for obesity Family History Family History Sister Family history of obesity Family history of rheumatoid arthritis Family history of type 2 diabetes mellitus Mother Hypertension Family history of renal failure Father Family history of hypothyroidism Family history of coronary artery disease Family history of type 2 diabetes mellitus Social History Soc
--- NOTE | 2023-09-29 10:20 | PM.HPGS ---
History of Present Illness History of Present Illness Consent: Risks, benefits, and alternatives have been discussed and questions answered. Patient agrees to proceed with procedure. Chief complaint: mucus in stool Narrative: Mahendra Allen is a 67 year old female here for colonoscopy, last one in 2014, last few months noted some mucus in stool. Review of Systems Review of Systems: All systems reviewed & are unremarkable except as noted in HPI and below PMFSH Past Medical History Medical History (Updated 09/29/23 @ 10:21 by Chance Isidro MD) Diabetes Essential (primary) hypertension Hiatal hernia HLD (hyperlipidemia) Hypothyroidism Intention tremor Mucus in stool NAFL (nonalcoholic fatty liver) TEJAL (obstructive sleep apnea) Type 2 diabetes mellitus with hyperglycemia, with long-term current use of insulin Unspecified asthma, uncomplicated Surgical History Surgical History History of carpal tunnel release History of hysterectomy Status post gastric bypass for obesity Family History Family History Sister Family history of obesity Family history of rheumatoid arthritis Family history of type 2 diabetes mellitus Mother Hypertension Family history of renal failure Father Family history of hypothyroidism Family history of coronary artery disease Family history of type 2 diabetes mellitus Social History Social History Smoking status: Never smoker Second hand tobacco smoke exposure: No Alcohol intake: never Substance use: never Substance use type: does not use Living arrangements: with family Occupation/Education: retired Gender identity (if verbalized by the patient): Female Sexual Orientation (if Verbalized by the Patient): Straight or Heterosexual Spiritual care concerns: No Meds Home Medications and Allergies Home Medications Medication Instructions Recorded Confirmed Type cetirizine 10 mg tablet 10 mg PO DAILY 07/04/19 09/29/23 History cholecalciferol (vitamin D3) 50 2,000 unit PO DAILY 07/04/19 09/29/23 History mcg (2,000 unit) tablet byqayjpg-kcbxflf-meo-iron 18 mg-FA 1 tablet PO BID 07/04/19 09/29/23 History 400 mcg-vit K 80 mcg-hrb#244 tablet vitamin E (dl, acetate) 180 mg 800 unit PO DAILY 07/04/19 09/29/23 History (400 unit) capsule docusate sodium 100 mg capsule 100 mg PO BID #180 caps 01/12/20 09/29/23 Rx insulin lispro 100 unit/mL 1 unit subcut PRN PRN Hyperglycemia 01/12/20 09/29/23 History subcutaneous pen (Humalog KwikPen (U-100) Insulin) blood-glucose meter,continuous #1 ea 07/09/20 09/20/23 History (Dexcom G6 Transport Coordinator) blood-glucose sensor (Dexcom G6 #3 ea 07/09/20 09/20/23 History Sensor device) blood-glucose transmitter (Dexcom #1 ea 07/09/20 09/20/23 History G6 Transmitter device) Lactobacillus acidophilus 10 10,000 mmu cells PO DAILY 09/02/21 09/29/23 History billion cell capsule (Probiotic) calcium citrate 315 mg-vitamin D3 2 tablet PO BID 02/10/22 09/29/23 History 5 mcg (200 unit) tablet (Calcium Citrate + D) levothyroxine 88 mcg tablet 88 mcg PO QAM #90 tabs 09/08/22 09/20/23 Rx doxycycline hyclate 100 mg tablet 100 mg PO BID #180 tabs 01/01/23 09/29/23 Rx empagliflozin 10 mg tablet 10 mg PO DAILY #30 tabs 02/08/23 09/29/23 Rx (Jardiance) semaglutide 2 mg/dose (8 mg/3 mL) 2 mg (0.75 mL) subcut WEEKLY #3 mL 02/08/23 09/29/23 Rx subcutaneous pen injector (Ozempic) metformin 500 mg tablet 500 mg PO BID #180 tabs 02/09/23 09/29/23 Rx pen needle, diabetic 31 gauge x #200 ea 02/09/23 09/20/23 Rx 3/16 (BD Ultra-Fine Mini Pen Needle) lisinopril 2.5 mg tablet See Rx Instructions .Route 05/10/23 09/29/23 Rx .COMPLEX #90 tabs montelukast 10 mg tablet 10 mg PO HS #90 tabs 05/10/23 09/29/23 Rx (Singulair) rosuvasta
--- NOTE | 2023-09-29 10:44 | WPDANESEPPF ---
Anes - Initial Pre Proc Eval Procedure: Operation Date: 09/29/23 11:00 Proposed Procedures p Colonoscopy - Chance Iisdro MD Date/Time: 09/29/23 10:44 Surgeon: Chance Isidro MD Pre Op Diagnosis: mucus in stool Patient Data Age: 67 Gender: F Height: 1.68 m Weight: 62.4 kg Last Vital Signs Temp 98.0 F 09/29/23 09:42 Pulse 79 09/29/23 09:42 Resp 18 09/29/23 09:42 BP 133/74 09/29/23 09:42 Pulse Ox 100 09/29/23 09:42 O2 Del Method Room Air 09/29/23 09:42 Allergies Allergy/AdvReac Type Severity Reaction Status Date / Time ibuprofen AdvReac Mild H/O Verified 09/29/23 09:40 GASTRIC BYPASS pseudoephedrine AdvReac Unknown Agitated Verified 09/29/23 09:40 Home Medications Medication Instructions Recorded Confirmed Type cetirizine 10 mg tablet 10 mg PO DAILY 07/04/19 09/29/23 History cholecalciferol (vitamin D3) 50 2,000 unit PO DAILY 07/04/19 09/29/23 History mcg (2,000 unit) tablet wojnoiml-kggxibj-oyr-iron 18 mg-FA 1 tablet PO BID 07/04/19 09/29/23 History 400 mcg-vit K 80 mcg-hrb#244 tablet vitamin E (dl, acetate) 180 mg 800 unit PO DAILY 07/04/19 09/29/23 History (400 unit) capsule docusate sodium 100 mg capsule 100 mg PO BID #180 caps 01/12/20 09/29/23 Rx insulin lispro 100 unit/mL 1 unit subcut PRN PRN Hyperglycemia 01/12/20 09/29/23 History subcutaneous pen (Humalog KwikPen (U-100) Insulin) blood-glucose meter,continuous #1 ea 07/09/20 09/20/23 History (Dexcom G6 Alumina Plant Supervisor) blood-glucose sensor (Dexcom G6 #3 ea 07/09/20 09/20/23 History Sensor device) blood-glucose transmitter (Dexcom #1 ea 07/09/20 09/20/23 History G6 Transmitter device) Lactobacillus acidophilus 10 10,000 mmu cells PO DAILY 09/02/21 09/29/23 History billion cell capsule (Probiotic) calcium citrate 315 mg-vitamin D3 2 tablet PO BID 02/10/22 09/29/23 History 5 mcg (200 unit) tablet (Calcium Citrate + D) levothyroxine 88 mcg tablet 88 mcg PO QAM #90 tabs 09/08/22 09/20/23 Rx doxycycline hyclate 100 mg tablet 100 mg PO BID #180 tabs 01/01/23 09/29/23 Rx empagliflozin 10 mg tablet 10 mg PO DAILY #30 tabs 02/08/23 09/29/23 Rx (Jardiance) semaglutide 2 mg/dose (8 mg/3 mL) 2 mg (0.75 mL) subcut WEEKLY #3 mL 02/08/23 09/29/23 Rx subcutaneous pen injector (Ozempic) metformin 500 mg tablet 500 mg PO BID #180 tabs 02/09/23 09/29/23 Rx pen needle, diabetic 31 gauge x #200 ea 02/09/23 09/20/23 Rx 3/16 (BD Ultra-Fine Mini Pen Needle) lisinopril 2.5 mg tablet See Rx Instructions .Route 05/10/23 09/29/23 Rx .COMPLEX #90 tabs montelukast 10 mg tablet 10 mg PO HS #90 tabs 05/10/23 09/29/23 Rx (Singulair) rosuvastatin 5 mg tablet 5 mg PO HS #90 tabs 05/10/23 09/29/23 Rx Patient hx anesthesia problems: none Family hx anesthesia problems: none Results Review: All pre-operative results and documents have been reviewed as part of the pre-operative evaluation. [facility] Past Medical History Medical History (Updated 09/29/23 @ 10:21 by Chance Isidro MD) Diabetes Essential (primary) hypertension Hiatal hernia HLD (hyperlipidemia) Hypothyroidism Intention tremor Mucus in stool NAFL (nonalcoholic fatty liver) TEJAL (obstructive sleep apnea) Type 2 diabetes mellitus with hyperglycemia, with long-term current use of insulin Unspecified asthma, uncomplicated Surgical History Surgical History History of carpal tunnel release History of hysterectomy Status post gastric bypass for obesity Family History Family History Sister Family history of obesity Family history of rheumatoid arthritis Family history of type 2 diabetes mellitus Mother Hypertension Family history of renal failure Father Family history of hypothyroidism Family history of coronary artery disease Family history of type 2 diabete
[2023-09-29 10:47] VITALS: BP 90/56; PULSE 71; RESP 18; O2SAT 99
[2023-09-29 10:57] VITALS: BP 106/62; PULSE 71; RESP 18; O2SAT 99
[2023-09-29 11:07] VITALS: BP 108/62; PULSE 66; RESP 18; O2SAT 100
--- NOTE | 2023-09-29 12:00 | SUR.PREOP ---
pt has a dexcom and this was used for blood sugar reading of 144.
== END 2023-09-29 11:14 | disposition home or self-care (01) ==
PROVIDERS: PCP Family Medicine; Referring Provider Physician Assistant Medical; Visit Provider Internal Medicine Gastroenterology
PROC: 0DJD8ZZ Inspection of Lower Intestinal Tract, Via Natural or Artificial Opening Endoscopic (ICD-10-PCS; CPT 45378; principal; 2023-09-29 11:00)
DX: K57.30 Diverticulosis of large intestine without perforation or abscess without bleeding (principal); I10 Essential (primary) hypertension; E78.5 Hyperlipidemia, unspecified; E11.9 Type 2 diabetes mellitus without complications; E03.9 Hypothyroidism, unspecified; G47.33 Obstructive sleep apnea (adult) (pediatric); J45.909 Unspecified asthma, uncomplicated; K75.81 Nonalcoholic steatohepatitis (NASH); Z79.4 Long term (current) use of insulin; Z79.84 Long term (current) use of oral hypoglycemic drugs; Z79.85 Long-term (current) use of injectable non-insulin antidiabetic drugs
CPT/HCPCS: 45378; J2704; J7120

== ENCOUNTER 2024-04-05 09:16 | Outpatient (CLI) | payer MEDICARE, BC, SELFPAY ==
--- NOTE | 2024-04-05 09:27 | ECG_ITS ---
Test Date: 2024-04-05 09:39:17 Measurements Intervals [place] Rate: 69 P: 64 NC: 170 QRS: 23 QRSD: 82 T: 48 QT: 375 QTc: 404 Interpretive Statements SINUS RHYTHM NORMAL ECG No previous ECG available for comparison Electronically Signed On 04-05-2024 14:04:02 CDT by Bandar Hawk M.D.
[2024-04-05 10:05] LABS: Anion Gap 7 mmol/L (4-12); Blood Urea Nitrogen 17 mg/dL (7-17); Calcium 9.2 mg/dL (8.4-10.2); Carbon Dioxide 29 mmol/L (22-30); Chloride 102 mmol/L (98-107); Estimated Glomerular Filt Rate > 60; Glucose 162 mg/dL (65-110); Potassium 4.2 mmol/L (3.4-5.0); Sodium 138 mmol/L (137-145)
== END 2024-04-05 09:17 | disposition home or self-care (01) ==
PROVIDERS: Anesthesiology; PCP Family Medicine; Visit Provider Urology
DX: Z01.818 Encounter for other preprocedural examination (principal); E11.65 Type 2 diabetes mellitus with hyperglycemia; Z79.4 Long term (current) use of insulin
CPT/HCPCS: 36415; 80048; 93005

== ENCOUNTER 2024-04-06 03:01 | Day surgery (SDC) | payer MEDICARE, BC, SELFPAY ==
[2024-04-03 15:05] VITALS: BMI 22.3
--- NOTE | 2024-04-03 15:11 | PC.NURSE ---
Report to the Outpatient Waiting Room, entrance under the green pavilion located off [facility], at time _1000_ on date _[id number]_. Planned Procedure Time: _1200_.? Time changes happen often and if your time is changed the preop area will call you the afternoon before. - You and your visitor will be asked to self-screen and do not enter if you have any COVID symptoms. Please call surgeon if you need to reschedule. - A mask is optional within the hospital at this time. Patients may have clear liquids (water, carbonated beverages, clear teas, apple juice) until 3 hours prior to surgery with a maximum of 20 ounces. - No food from midnight until time of surgery and no smoking Take only the following medications with a SIP of water on the morning of surgery: ____Levothyroxine DO NOT STOP ANY OF YOUR OTHER PRESCRIPTION MEDICATIONS PRIOR TO SURGERY EXCEPT THE FOLLOWING Medications to discontinue per physician ____All vitamins and probiotic Date to take last dose___Stop now. Please no make-up, nail croatian, hairspray, perfume, deodorant, or body powder the day of surgery.? No jewelry (including any body piercings) or valuables the day of surgery, leave them at home.? Please take a shower or bath the night before, or the morning of, surgery with an antibacterial soap.? Wear comfortable, loose fitting clothing.? - Jewelry must be removed prior to entering the operating room.? Rings and piercings that are not removed may be cut off. - The hospital will not accept responsibility for valuables.? - Please leave all valuables, including medications, at home the day of surgery. If you are going home after surgery, a licensed route cdl driver must drive you home.? - NO public transportation without another adult if you receive anesthesia. - We recommend that an adult stay with you for 24 hours following discharge. - We also recommend that you do not drive, make important decision, drink alcoholic beverages, or take any drugs that were not prescribed by your health care provider for at least 24 hours after your discharge time. Follow any additional instructions given to you from your surgeon. Telephone instructions given to ___Mahendra___and asked if any additional questions and then verbalized understanding. Patient advised to call surgeon office or pre surgery nurse liaison [phone] if any additional questions.
[2024-04-06] VITALS (7 sets, daily range): BP systolic 117–137; BP diastolic 61–77; PULSE 57–71; RESP 12–18; TEMP 36.3–36.7; O2SAT 97–100
--- NOTE | ~2024-04-06 | XR_ITS ---
EXAMINATION: XR fluoroscopy no charge DATE: 04/06/2024 12:10 INDICATION: Right ureteral stone. TECHNIQUE: 3 intraoperative fluoroscopic views of the abdomen and pelvis were obtained. I was not pre sent. Fluoroscopy exposure time was 18 seconds. COMPARISON: CT abdomen and pelvis 02/09/2022 FINDINGS: There is a catheter in the right ureter. No visible urolithiasis. IMPRESSION: 1. No visible urolithiasis. Reviewed, dictated and finalized at location A. IMPRESSION: 1. No visible urolithiasis.
--- NOTE | 2024-04-06 06:40 | WPDHPUPDATE1 ---
History and Physical Update Update Date/Time: 04/06/24 06:40 History and Physical has been reviewed, including an updated exam of the patient. There are NO changes in the patient's condition. Risks, benefits, and alternatives have been discussed and questions answered. Patient agrees to proceed with procedure.
[2024-04-06] MEDS: LACTATED RINGERS 1,000 ML 30 ML IV CONT ×2 (10:40→12:16)
[2024-04-06 10:47] LABS: Glucose Point of Care 120 mg/dl (65-105)
--- NOTE | 2024-04-06 11:22 | WPDANESEPPF ---
Anes - Initial Pre Proc Eval Procedure: Operation Date: 04/06/24 12:00 Proposed Procedures p Cystoscopy, Right Ureteroscopy, Possible Holmium Laser, Right Stone Extraction, Possible Right Retrograde Pyelogram, Right Stent Placement - Misha Huddleston MD Date/Time: 04/06/24 11:22 Surgeon: Misha Huddleston MD Pre Op Diagnosis: Renal Kidney Stone Patient Data Age: 68 Gender: F Height: 1.68 m Weight: 63.4 kg Last Vital Signs Temp 97.4 F L 04/06/24 10:23 Pulse 66 04/06/24 10:23 Resp 18 04/06/24 10:23 BP 137/65 04/06/24 10:23 Pulse Ox 100 04/06/24 10:23 O2 Del Method Room Air 04/06/24 10:23 Allergies Allergy/AdvReac Type Severity Reaction Status Date / Time ibuprofen AdvReac Mild H/O Verified 04/06/24 10:22 GASTRIC BYPASS pseudoephedrine AdvReac Unknown Agitated Verified 04/06/24 10:22 Home Medications Medication Instructions Recorded Confirmed Type cetirizine 10 mg tablet 10 mg PO DAILY 07/04/19 04/06/24 History cholecalciferol (vitamin D3) 50 2,000 unit PO DAILY 07/04/19 04/06/24 History mcg (2,000 unit) tablet awcmiuey-fddquav-iup-iron 18 mg-FA 1 tablet PO BID 07/04/19 04/06/24 History 400 mcg-vit K 80 mcg-hrb#244 tablet vitamin E (dl, acetate) 180 mg 800 unit PO DAILY 07/04/19 04/06/24 History (400 unit) capsule docusate sodium 100 mg capsule 100 mg PO BID #180 caps 01/12/20 04/06/24 Rx insulin lispro 100 unit/mL 1 unit subcut PRN PRN Hyperglycemia 01/12/20 04/06/24 History subcutaneous pen (Humalog KwikPen (U-100) Insulin) blood-glucose meter,continuous #1 ea 07/09/20 04/06/24 History (Dexcom G6 Sign Hanger Supervisor) blood-glucose sensor (Dexcom G6 #3 ea 07/09/20 04/06/24 History Sensor device) blood-glucose transmitter (Dexcom #1 ea 07/09/20 04/06/24 History G6 Transmitter device) Lactobacillus acidophilus 10 10,000 mmu cells PO DAILY 09/02/21 04/06/24 History billion cell capsule (Probiotic) calcium 315 mg (as 2 tablet PO BID 02/10/22 04/06/24 History citrate)-vitamin D3 5 mcg (200 unit) tablet (Calcium Citrate + D) levothyroxine 88 mcg tablet 88 mcg PO QAM #90 tabs 09/08/22 04/06/24 Rx empagliflozin 10 mg tablet 10 mg PO DAILY #30 tabs 02/08/23 04/06/24 Rx (Jardiance) semaglutide 2 mg/dose (8 mg/3 mL) 2 mg (0.75 mL) subcut WEEKLY #3 mL 02/08/23 04/06/24 Rx subcutaneous pen injector (Ozempic) metformin 500 mg tablet 500 mg PO BID #180 tabs 02/09/23 04/06/24 Rx pen needle, diabetic 31 gauge x #200 ea 02/09/23 04/06/24 Rx 3/16 (BD Ultra-Fine Mini Pen Needle) doxycycline hyclate 100 mg tablet 100 mg PO BID #180 tabs 10/12/23 04/06/24 Rx lisinopril 2.5 mg tablet See Rx Instructions .Route 10/25/23 04/06/24 Rx .COMPLEX #90 tabs montelukast 10 mg tablet 10 mg PO HS #90 tabs 10/25/23 04/06/24 Rx (Singulair) rosuvastatin 10 mg tablet 10 mg PO HS 04/03/24 04/06/24 History tamsulosin 0.4 mg capsule 0.4 mg PO HS 04/04/24 04/06/24 History Laboratory Tests 04/06/24 10:43 POC Capillary Glucose 120 H mg/dl (65-105) Patient hx anesthesia problems: none Family hx anesthesia problems: none Results Review: All pre-operative results and documents have been reviewed as part of the pre-operative evaluation. [facility] Past Medical History Medical History Diabetes Essential (primary) hypertension Hiatal hernia HLD (hyperlipidemia) Hypothyroidism Intention tremor Mucus in stool NAFL (nonalcoholic fatty liver) TEJAL (obstructive sleep apnea) Type 2 diabetes mellitus with hyperglycemia, with long-term current use of insulin Unspecified asthma, uncomplicated Surgical History Surgical History History of carpal tunnel release History of hysterectomy Status post gastric bypass for obesity Family History Family History Sister Family hi
--- NOTE | 2024-04-06 12:23 | P.OP_ITS ---
Procedure Note - Detailed Date of Procedure 04/06/24 Pre-op Diagnosis Right ureteral stone Post-op Diagnosis Other (Spontaneously passed right ureteral stone) Procedure Performed Cystoscopy, right ureteroscopy Surgeon Misha Huddleston MD Anesthesia General Description of Procedure For patient is brought to the operative suite was prepped draped in routine sterile fashion while in dorsal lithotomy position. Cystoscopy was undertaken with a 19 F rigid cystoscope after the uneventful induction of a general LMA anesthetic. Bladder neck and urethra endoscopically normal. Bladder mucosa is normal without hyperemia. There was no intravesical foreign body or neoplasm. She has a single orthotopic ureteral orifice bilaterally. A 0.035 in glidewire was advanced in the right renal pelvis and the distal ureter was dilated with an 8 F 10 F dilator. Ureteroscopy was 1st undertaken with a short tapered semi- rigid ureteral scope. There were no stones in the distal ureter but an area of hyperemia consistent with a recently passed stone. I exchanged the rigid ureteral scope for 7.5 F flexible ureteral scope. Renal pelvis and calices as well as a proximal ureter were inspected, likewise, found to have no stones. Scopes and wires removed and she was taken to the recovery room having tolerated this procedure well
[2024-04-06 12:24] LABS: Glucose Point of Care 107 mg/dl (65-105)
== END 2024-04-06 13:47 | disposition home or self-care (01) ==
PROVIDERS: PCP Family Medicine; Visit Provider Urology
PROC: (CPT 52352; principal; 2024-04-06 12:00)
DX: N20.1 Calculus of ureter (principal); E11.9 Type 2 diabetes mellitus without complications; I10 Essential (primary) hypertension; E78.5 Hyperlipidemia, unspecified; E03.9 Hypothyroidism, unspecified; K76.0 Fatty (change of) liver, not elsewhere classified; J45.909 Unspecified asthma, uncomplicated; G47.33 Obstructive sleep apnea (adult) (pediatric); Z79.84 Long term (current) use of oral hypoglycemic drugs; Z79.85 Long-term (current) use of injectable non-insulin antidiabetic drugs
CPT/HCPCS: 52351; 82948; 99199; C1769; J1100; J2003; J2250; J2405; J2704; J3010; J7120

== ENCOUNTER 2024-04-09 16:40 | Emergency (ER) | payer MEDICARE, BC, SELFPAY ==
--- NOTE | ~2024-04-09 | CT_ITS ---
EXAMINATION: CT abdomen pelvis wo con DATE: 04/09/2024 21:35 INDICATION: Right flank pain TECHNIQUE: Computed tomography (CT) of the abdomen and pelvis was performed without intravenous contr ast. Automated exposure control and iterative reconstruction technique were employed. The dose-length product was 196.49 mGy-cm. COMPARISON: 02/09/2022. FINDINGS: Lower thorax: Small hiatal hernia. Prior GE junction surgery. Liver: Normal. Biliary/Gallbladder: Gallbladder is normal. No bile duct dilation. Pancreas: No mass or duct dilation. Spleen: Normal. Adrenals:No mass. Kidneys: Multiple nonobstructing left renal calculi. Bilateral renal scarring. Moderate right hydrone phrosis and perinephric stranding. Nondependent gas in the right renal pelvis. GI tract: No small or large bowel dilation. Uncomplicated small bowel anastomosis. Normal appendix. D iverticulosis without diverticulitis. Mesentery/Peritoneum: No ascites, mass, or free air. Retroperitoneum: No mass. Pelvis: Normal urinary bladder. Absent uterus. Ovaries not visualized. 2 calcifications are present i n the distal right ureter measuring 3 and 4 mm. Soft Tissues: Soft tissues and body wall unremarkable. Bones: No acute osseous finding. IMPRESSION: 3 mm and 4 mm distal right ureteral stones causing moderate obstructive uropathy. Gas in the renal pe lvis may herald the presence of infection. Reviewed, dictated and finalized at location K. IMPRESSION: 3 mm and 4 mm distal right ureteral stones causing moderate obstructive uropath y. Gas in the renal pelvis may herald the presence of infection.
[2024-04-09 16:49] VITALS: BP 145/85; PULSE 73; RESP 18; TEMP 36.8; O2SAT 100
[2024-04-09 21:36] LABS: Basophils Absolute Auto 0.1 K/mm3 (0.0-0.1); Basophils Percent Auto 0.9 % (0.2-1.2); Eosinophils Absolute Auto 0.1 K/mm3 (0-0.3); Eosinophils Percent Auto 1.9 % (0-4.4); Hematocrit 38.5 % (37.0-47.0); Hemoglobin 12.8 g/dL (12.0-15.0); Immature Granulocyte Absolute 0.02 K/mm3 (0.00-0.031); Immature Granulocyte Percent A 0.3 % (0-0.5); Immature Platelet Fraction Pct 6.3 % (0.9-11.2); Lymphocytes Absolute Auto 1.35 K/mm3 (0.9-3.2); Lymphocytes Percent Auto 19.7 % (18.3-44.2); Mean Corpuscular HGB Conc 33.2 g/dl (32-36); Mean Corpuscular Hemoglobin 29.8 pg (26-34); Mean Corpuscular Volume 89.7 fl (80-100); Mean Platelet Volume 10.6 fl (7.4-10.4); Monocytes Absolute Auto 0.6 K/mm3 (0.1-0.6); Monocytes Percent Auto 9.4 % (2.6-8.5); Neutrophils Absolute Auto 4.6 K/mm3 (1.3-6.7); Neutrophils Percent Auto 67.8 % (45.5-73.1); Platelet Count Result 142 k/mm3 (150-375); Red Blood Count 4.29 M/mm3 (4.2-5.4); Red Cell Distribution Width 12.7 % (11.5-14.5); White Blood Count 6.8 K/mm3 (4.5-10.0)
--- NOTE | 2024-04-09 21:38 | ED.GENADULT ---
HPI - General Adult General Chief complaint: Back Pain/Injury Stated complaint: right flank pain Time Seen by Provider: 04/09/24 20:08 History of Present Illness HPI narrative: Patient is a 68-year-old female who presents emergency department with chief complaint of right flank pain. Patient reports she has history of kidney stones reports she urology at our facility the patient states that recently she had a procedure to remove a kidney stone patient states that today she started having severe pain in the right flank area reports that it was pretty severe dental she urinated in the lobby and reports that it is feeling a little better at this time patient states she is concerned that she may have an obstructing stone. Related Data Home Medications Medication Instructions Recorded Confirmed cetirizine 10 mg tablet 10 mg PO DAILY 07/04/19 04/06/24 cholecalciferol (vitamin D3) 50 2,000 unit PO DAILY 07/04/19 04/06/24 mcg (2,000 unit) tablet nrdobabc-hkothau-eiw-iron 18 mg-FA 1 tablet PO BID 07/04/19 04/06/24 400 mcg-vit K 80 mcg-hrb#244 tablet vitamin E (dl, acetate) 180 mg 800 unit PO DAILY 07/04/19 04/06/24 (400 unit) capsule insulin lispro 100 unit/mL 1 unit subcut PRN PRN Hyperglycemia 01/12/20 04/06/24 subcutaneous pen (Humalog KwikPen (U-100) Insulin) blood-glucose meter,continuous #1 ea 07/09/20 04/06/24 (Dexcom G6 It Security Administrator) blood-glucose sensor (Dexcom G6 #3 ea 07/09/20 04/06/24 Sensor device) blood-glucose transmitter (Dexcom #1 ea 07/09/20 04/06/24 G6 Transmitter device) Lactobacillus acidophilus 10 10,000 mmu cells PO DAILY 09/02/21 04/06/24 billion cell capsule (Probiotic) calcium 315 mg (as 2 tablet PO BID 02/10/22 04/06/24 citrate)-vitamin D3 5 mcg (200 unit) tablet (Calcium Citrate + D) rosuvastatin 10 mg tablet 10 mg PO HS 04/03/24 04/06/24 tamsulosin 0.4 mg capsule 0.4 mg PO HS 04/04/24 04/06/24 Allergies Allergy/AdvReac Type Severity Reaction Status Date / Time ibuprofen AdvReac Mild H/O Verified 04/09/24 16:41 GASTRIC BYPASS pseudoephedrine AdvReac Unknown Agitated Verified 04/09/24 16:41 Review of Systems Review of Systems: A 10 system review of systems was completed on the patient and is negative except for what is stated in the HPI. Nursing and ancillary documentation was reviewed. PMFSH Past Medical History Medical History Diabetes Essential (primary) hypertension Hiatal hernia HLD (hyperlipidemia) Hypothyroidism Intention tremor Mucus in stool NAFL (nonalcoholic fatty liver) TEJAL (obstructive sleep apnea) Type 2 diabetes mellitus with hyperglycemia, with long-term current use of insulin Unspecified asthma, uncomplicated Surgical History Surgical History History of carpal tunnel release History of hysterectomy Status post gastric bypass for obesity Family History Family History Sister Family history of obesity Family history of rheumatoid arthritis Family history of type 2 diabetes mellitus Mother Hypertension Family history of renal failure Father Family history of hypothyroidism Family history of coronary artery disease Family history of type 2 diabetes mellitus Social History Social History Smoking status: Never smoker Second hand tobacco smoke exposure: No Alcohol intake: never Substance use: never Substance use type: does not use Living arrangements: with family Occupation/Education: retired Gender identity (if verbalized by the patient): Female Sexual Orientation (if Verbalized by the Patient): Straight or Heterosexual Spiritual care concerns: No Exam Narrative: GENERAL: Well-appearing, well-nourished, and in no acute distress. HEAD: Normocephalic,
[2024-04-09 21:45] LABS: Alanine Aminotransferase 15 U/L (6-35); Albumin Level 4.1 g/dL (3.5-5.1); Alkaline Phosphatase 58 U/L (38-126); Anion Gap 7 mmol/L (4-12); Aspartate Amino Transferase 31 U/L (14-36); Bilirubin,Total 0.5 mg/dL (0.2-1.3); Blood Urea Nitrogen 16 mg/dL (7-17); Calcium 9.3 mg/dL (8.4-10.2); Carbon Dioxide 31 mmol/L (22-30); Chloride 100 mmol/L (98-107); Estimated CRCL calculation 44 ml/min; Estimated Glomerular Filt Rate 55; Glucose 128 mg/dL (65-110); Lipase 118 U/L (23-300); Sodium 138 mmol/L (137-145)
[2024-04-09] MEDS: SODIUM CHLORIDE 0.9% IV 1,000 ML 999 ML IV CONT (22:19)
[2024-04-09 22:40] LABS: Add Urine Microscopic? YES; Appearance Urine Cloudy (Clear); Bilirubin Urine Negative (Negative); Blood Urine 3+ (Negative); Glucose Urine UA 3+ mg/dL (Negative); Ketones Urine 1+ mg/dL (Negative); Leukocyte Esterase Ur 2+ LEU/UL (Negative); Nitrate Urine Negative (Negative); Protein Urine 1+ mg/dL (Negative); RBC Urine >100 /hpf (0-2); Specific Grav Ur 1.019 (1.001-1.035); Squamous Epithelial Cell Urine Few /hpf (Few)
[2024-04-09 23:02] LABS: Bacteria Urine Trace /hpf; Color Urine Amber (Yellow)
[2024-04-10 00:05] VITALS: BP 136/80; PULSE 80; RESP 16; O2SAT 100
[2024-04-10] MEDS: KETOROLAC 15 MG/ML VIAL (*BKC) IV PUSH (00:13)
== END 2024-04-10 00:10 | disposition home or self-care (01) ==
PROVIDERS: Emergency Provider Emergency Medicine; PCP Family Medicine
DX: N13.9 Obstructive and reflux uropathy, unspecified (principal); N20.1 Calculus of ureter; I10 Essential (primary) hypertension; E11.9 Type 2 diabetes mellitus without complications; E78.5 Hyperlipidemia, unspecified; E03.9 Hypothyroidism, unspecified; J45.909 Unspecified asthma, uncomplicated; G47.33 Obstructive sleep apnea (adult) (pediatric); Z98.84 Bariatric surgery status; Z87.442 Personal history of urinary calculi; Z90.710 Acquired absence of both cervix and uterus; Z79.4 Long term (current) use of insulin; Z79.85 Long-term (current) use of injectable non-insulin antidiabetic drugs; Z79.84 Long term (current) use of oral hypoglycemic drugs; Z79.899 Other long term (current) drug therapy
CPT/HCPCS: 36415; 74176; 80053; 81001; 83690; 85025; 85055; 87086; 96361; 96374; 99284; J1885; J7030

== ENCOUNTER 2024-09-04 10:31 | Outpatient (CLI) | payer MEDICARE, BC, SELFPAY | END 2024-09-04 10:32 | disposition home or self-care (01) | PROVIDERS: PCP Family Medicine; Visit Provider Urology | DX: N20.0 Calculus of kidney (principal); S82.832A Other fracture of upper and lower end of left fibula, initial encounter for closed fracture; X58.XXXA Exposure to other specified factors, initial encounter | CPT/HCPCS: 73600; 74018 ==

== ENCOUNTER 2025-02-19 08:46 | Outpatient (CLI) | payer MEDICARE, BC, SELFPAY ==
--- NOTE | ~2025-02-19 | DEXA_ITS ---
Bone Density Report Name: YANNA WHITMAN Age: 69 Sex: Female Ethnicity: White Date of : 1955 Indication: postmenopausal; screening for osteoporosis; prior fracture; hysterectomy; Referring Provider: YUNI SZYMANSKI Study: Bone densitometry was performed. Exam Date: February 19, 2025 Accession number: [id number] Bone Density: Region BMD T-score Z-score Classification AP Spine(L1-L4) 1.121 0.7 2.8 Normal Femoral Neck (Left) 0.743 -1.0 0.8 Normal Total Hip (Left) 0.983 0.3 1.8 Normal Femoral Neck (Right) 0.713 -1.2 0.6 Osteopenia Total Hip (Right) 0.883 -0.5 1.0 Normal Total Hip Mean 0.933 -0.1 1.4 Normal World Health Organization criteria for BMD impression classify patients as: Normal (T-score at or above -1.0), Osteopenia (T-score between -1.0 and -2.5), or Osteoporosis (T-score at or below -2.5). 10-year Fracture Risk(1): Major Osteoporotic Fracture 14% Hip Fracture 1.7% Reported Risk Factors: [place] (), Neck BMD=0.713, BMI=22.9, previous fracture (1) FRAX(R) Version 3.08. Fracture probability calculated for an untreated patient. Fracture probability may be lower if the patient has received treatment. Clinical Information Provided by Patient: Has had a low trauma fracture Has used the following medications: Vitamin D, Calcium Has the following medical conditions: Hysterectomy Patient maximum height was 65.0 Menopause Age: 37 No regular weight bearing exercise Drinks caffeinated beverages Onset of menses at age 10 Number of children 2 Impression: The patient has low bone mass, based on the Right Femoral Neck T-score. The patient has an estimated ten-year risk of hip fracture of 1.7% and an estimated ten-year risk of major fracture of 14%, based on the WHO FRAX algorithm. The patient has risk factors, including: previous fracture. Discussion: BONE DENSITY IS LOW AT ONE OR MORE SKELETAL SITES. This patient's lowest T-score is low at one or more skeletal sites. It meets the World Health Organization's (WHO) criteria for ?low bone mass? (T-score between -1.0 and -2.5). The patient's 10-year risk of fracture as calculated by FRAX is less than the threshold where pharmacological therapy is recommended by the National Osteoporosis Foundation (NOF). However, all treatment decisions require clinical judgment and consideration of individual patient factors, including patient preferences, comorbidities, previous drug use, risk factors not captured in the FRAX model (e.g., frailty, falls, vitamin D deficiency, increased bone turnover, interval significant decline in bone density) and possible under or overestimation of fracture risk by FRAX. The patient should follow a healthful lifestyle (good nutrition with adequate calcium and vitamin D, and appropriate weight-bearing exercise). Follow-Up: Consider repeating this study in 2 to 3 years to reassess this patient's status, or sooner if there is some new clinical indication. Reported by: BRIANDA on 02/19/2025 9:24:00 AM. Reviewed, dictated and finalized at location A.
--- OUTSIDE RECORDS SUMMARY | 2025-02-19 09:01 | XMS_ITS | Encounter Summary ---
Author Organization [facility] Address [address] [place] [address] Care Team Providers Care Machine Fitter Name Role Phone Unavailable Primary Care Provider Unavailabl e Encounter Details Date Type Department Care Team (Late st Contact Info) Description 11/01/2001 Outpatient [facility] [address] [place] [address] 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
--- OUTSIDE RECORDS SUMMARY | 2025-02-19 09:01 | XMS_ITS | Encounter Summary ---
Author Organization [facility] Address [address] [facility] [place] [address] Care Team Providers Care Soundscriber Mechanic Name Role Phone Jagdish Zimmerman MD Primary Care Provider [phone] Encounter Details Date Type Department Care Team (Late st Contact Info) Description 03/09/[address] 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 Received: 03/09/2019 12:23 PM Pathologist: Pelon Thornton MD Specimen: Skin, right arm 1:29 PM CDT DERMATOPATHOLOGY LABORATORY Final Diagnosis Specimen A. 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 [place] crusted papule. 1:29 PM CDT DERMATOPATHOLOGY LABORATORY Gross Description Specimen A: Received is one formalin filled container labeled with the patient's name and designated right arm. The specimen consists of a shave measuring [id number]. Jar 0. 1:29 PM CDT DERMATOPATHOLOGY LABORATORY Microscopic Description Specimen A. SKIN, right arm: There is a dome-shaped portion of skin with psoriasiform epidermal hyperplasia, compact hyperkeratosis, and fibrosis of the papillary dermis associated with a superficial perivascular lymphohistiocytic infiltrate. A focal erosion is present. 1:29 PM CDT DERMATOPATHOLOGY LABORATORY Disclaimer An external and internal positive and negative controls are appropriate for the histochemical, immunohistochemical and immunofluorescence stain(s) in this case (if any), except where stated explicitly. The performance characteristics of the stain(s) cited in this report were developed and its performance characteristic determined by the Dermatopathology Laboratory at [facility], directed by Dr. Yamil Thornton. These tests need not be, and therefore are not, approved by the [place] Food and Drug Administration. The tests are used for clinical purposes. Billing Codes Specimen Charges Stain Charges 13180 1 1:29 PM CDT DERMATOPATHOLOGY LABORATORY Embedded Images 1:29 PM CDT DERMATOPATHOLOGY LABORATORY Pathology/Cytolog y TISSUE SPECIMEN FROM SKIN / Unknown 03/08/2019 03/09/2019 12:23 PM CDT us Madiha Werner MD LAB - PATHOLOGY/CYTOLOGY ORD ERABLES Final Result DERMATOPATHOLOGY LABORATORY [facility] - Department of Dermatology [address] [place] [address], 5th Floor Lab [address] [place], [place] [id number] [place] [address] documented in this encounter Visit Diagnoses Not on filedocumented in this encounter Care Teams Soundscriber Mechanic Relationship Specialty Start Date End Date Jagdish Zimmerman MD [address] [place] [address] PCP - General 01/06/17 documented as of this encounter
--- OUTSIDE RECORDS SUMMARY | 2025-02-19 09:01 | XMS_ITS | Clinical Summary ---
Author Organization [facility] 1 Address [address] [place] [address] Care Team Providers Care Lacquer Dipping Machine Operator Name Role Phone William Werner MD Unavailable [phone] Jagdish Zimmerman MD Primary Care Provider Allergies Active Allergy Reactions Criticality Noted Date Comments Ibuprofen Other (See comments) Low 05/12/2018 D/t gastric bypass Nsaids (Non-Steroidal Anti-Inflammatory Drug) Unknown 2021 Pseudoephedrine Headache,Hives,Swea ting,Anxiety Medium 08/30/2013 it makes me go crazy Medications cetirizine (ZyrTEC) 10 mg tabletIndications: Seasonal Allergic Rhinitis Take 1 tablet (10 mg total) by mouth every morning 8 Active doxycycline (VIBRAMYCIN) 100 mg capsuleIndications :blephritis Take 1 tablet/capsule (100 mg total) by mouth 2 (two) times a day 7 Active montelukast (SINGULAIR) 10 mg tabletIndications: Seasonal Allergic Rhinitis Take 1 tablet (10 mg total) by mouth daily after dinner 7 Active vitamin E (AQUASOL E) 400 unit capsule Take 2 capsules (800 Units total) by mouth every morning Active calcium carbonate/vitamin D3 (CALCIUM 500 + D, D3, ORAL) Take 630 mg by mouth 2 (two) times a day Active cholecalciferol (VITAMIN D-3) 2000 unit tablet 1 pill BID as directed 1 Active docusate sodium (COLACE) 100 mg capsuleIndications :constipation Take 1 capsule (100 mg total) by mouth 2 (two) times a day 180 capsule 3 3 Active multivitamin tabletIndications: Vitamin Deficiency Prevention Take 1 tablet by mouth 2 (two) times a day 180 tablet 3 3 Active PreviDent 5000 Booster Plus 1.1 % paste 3 Active glucagon 1 mg kitIndications:Typ e 2 diabetes mellitus with hyperglycemia, with long-term current use of insulin ([facility]) Inject 1 mL (1 mg total) into the muscle as instructed as needed (for severe hypoglycemia) 1 kit 3 3 Active Lactobacillus acidophilus 10 billion cell capsule Take by mouth Active insulin lispro (HumaLOG Mayco) 100 unit/mL half-unit pen for injection 1 unit for every 15 - 20 grams of carbs plus 1 for every 35 > 120 - TDD 10 units 15 mL 3 4 Active pen needle, diabetic (BD Ultra-Fine Mini Pen Needle) 31 gauge x 3/16 needleIndications: Type 2 diabetes mellitus with hyperglycemia, with long-term current use of insulin ([facility]) 6 per day as directed 600 each 3 4 Active empagliflozin (JARDIANCE) 25 mg tabletIndications: Type 2 diabetes mellitus with hyperglycemia, with long-term current use of insulin ([facility]) Take 1 tablet (25 mg total) by mouth daily 90 tablet 3 5 026 Active rosuvastatin (CRESTOR) 20 mg tabletIndications: Hyperlipidemia, unspecified hyperlipidemia type Take 1 tablet (20 mg total) by mouth daily 90 tablet 3 5 026 Active semaglutide (Ozempic) 2 mg/dose (8 mg/3 mL) pen injector injectionIndicatio ns:Type 2 diabetes mellitus with hyperglycemia, with long-term current use of insulin ([facility]) Inject 2 mg under the skin once a week 9 mL 3 5 026 Active nateglinide (STARLIX) 120 mg tabletIndications: type 2 diabetes mellitus Take 1 tablet (120 mg total) by mouth 3 (three) times a day before meals 270 tablet 3 5 026 Active metFORMIN (GLUCOPHAGE) 500 mg tabletIndications: Type 2 diabetes mellitus with hyperglycemia, with long-term current use of insulin (HCC) Take 2 tablets (1,000 mg total) by mouth 2 (two) times a day with meals 360 tablet 3 5 026 Active levothyroxine (Synthroid) 88 mcg tabletIndications: Hypothyroidism, unspecified type Take 1 tablet (88 mcg total) by mouth every morning 90 tablet 3 5 Active Dexcom G7 Sensor deviceIndications: Type 2 diabetes mellitus with hyperglycemia, unspecified whether nursing home insulin use ([facility]) CHANGE EVERY 10 DAYS 9 each 1 5 Active Active Problems Problem Noted Date Diagnosed Date Type 2 diabetes mellitus wit h other diabetic kidney complication, with long-term current use of insulin 10/05/2023 Iron deficiency anemia 09/30/2020 Abdominal pannus 09/01/2019 Overview (09/01/2019): Added automatically from request for surgery [id number] Excess skin of abdomen 08/15/2019 Insulin long-term use 01/16/2019 History of gastric bypass 08/12/2018 Bariatric surgery status 08/12/2018 Morbid (severe) obesity due to excess calories 1 Overview (04/11/2018): Added automatically from request for surgery [id number] NAFLD (nonalcoholic fatty liver disease) 018 Overview (04/11/2018): Added automatically from request for surgery [id number] GERD (gastroesophageal reflux disease) 8 Morbid obesity 11/03/2017 Sleep apnea 11/03/2017 Steatosis of liver 05/07/2017 Vitamin D deficiency 02/21/2016 Hypothyroidism 06/25/2014 Nephrolithiasis 06/25/2014 Type 2 diabetes mellitus with hyperglycemia 06/05 Overview (09/30/2020): Mahenrda Allen Is a 64 y.o. female who presents today for evaluation of her Type II diabetes. Diabetes was diagnosed at age 35. Family history is positive for type 2 diabetes in both her father and her mother age of onset in their 60's and 70's. She was initially diagnosed with gestational diabetes in 1986 but then developed full-fledged diabetes in 1991. Insulin therapy was started with the exception of approximately 2003. She underwent a Horace en Y Bypass 05/11/2018 and a liver BX Showed YANES score 4/8 and stage 2 Yanes CRN. Response to surgery was excellent and she had resolution of fatty liver as well as resolution of the fibrosis. Current weight 176 pounds 09/30/2020which has been stable recently. Peak weight before the bypass was 267 pounds.. She remains on a multiple daily injection regimen now in combination with The DEXCOM G 6. Metformin was added back 03/2020. She underwent an abdominalplasty December 01, 2019 with good response but some swelling persists. We have been discussing an SGLT-2 agent as an option as well but have been reluctant to add given potential side effects and the overall good glycemic control. Similar discussion for the GLP-1 agents. Testing for C peptide 09/14/2108 shows endogenous insulin production 09/14/2018C-peptide 3.6, normal 1.1-4.4//Glucose 156. This confirms the presence of endogenous insulin and may allow us to consider alternatives to insulin moving forward. She continues to need 30-40 units of insulin per day making it unlikely that she will completely come off of insulin. I will continue the current insulin settings She meets criteria for Medicare for ongoing use of the sensor and is currently able to for both the sensor and her insulin therapy. She has a history of calcium containing renal stones and is utilizing calcium supplementation as a means to potentially decrease stones. She will stay on Crestor. Hyperlipidemia 06/25/2014 Resolved Problems Problem Noted Date Diagnosed Date Resolved Date Diabetes mellitus 06/25/2014 01/08/2020 Assessment & Plan (05/12/2018 7:36 PM PATROL MAN): 62 yo F with a prior history of T2DM, obesity (BMI 41.5), TEJAL (on CPAP), YANES, GERD, nephrolithiasis and hyperthyroidism on POD#1 for an elective gastric bypass with liver biopsy. She has a 25+ yr history of T2DM and follows with Dr. Werner in the outpatient setting. Her most recent A1c is 8.3% (03/01). Her home regimen consists: Trulicity, Actos, Metformin, Lantus 44 qAM and Humalog SSI. She is currently NPO and will be slowly advanced to a bariatric surgery diet. Her inpatient insulin regimen consists only of Lispro SSI, though she was temporarily on an insulin drip during surgery. Post surgical B -264. She received 2 L crystalloid in the OR, without steroids or additional glucose. Recommendation: - Starting Lantus 20 qd - MDSS Her - continue holding Trulicity, Actos, Metformin Plan for discharge: - Probably Lantus at a lower dose and rest of medications TBD. 2. Will monitor BG trend as diet is advanced and adjust insulin as necessary. Encounters Date Type Department Care Team Description 12/19/2024 9:40 AM CDT Office Visit [facility] Endocrinology Metabolism and Lipid [address] [facility] Medicine [address] [place] [address] [place] [address] Vikki Sinha MD Type 2 diabetes mellitus with hyperglycemia, unspecified whether middle or intermediate school principal insulin use (HCC) (Primary Dx); Type 2 diabetes mellitus with hyperglycemia, with long-term current use of insulin (HCC); Hyperlipidemia, unspecified hyperlipidemia type; Hypothyroidism, unspecified type from Last 3 Months Surgical History Surgery Date Site/Laterality Comments HYSTERECTOMY Hysterectomy - (Added by TW Conv) NOSE SURGERY Deviated Septum BACK SURGERY Back Surgery - -2003 (Added by TW Conv) SHOULDER SURGERY Shoulder Surgery - -2005 (Added by TW Conv) LITHOTRIPSY ROTATOR CUFF REPAIR Right CATARACT EXTRACTION, BILATERAL CARPAL TUNNEL RELEASE Left MOHS SURGERY 07/05/2016 - 07/04/2017 GASTRIC RESTRICTION SURGERY 05/12/18 Medical History Medical History Date Comments Vitamin D deficiency Vitamin D d eficiency - (Added by TW Conv) Type 2 diabetes mellitus wit hout complications (HCC) Type 2 diabetes mellitus - ( Added by TW Conv) Sleep apnea GERD (gastroesophageal reflux disease) Hyperlipidemia Liver disease Kidney stone Thyroid disease hypothyroid Anemia Skin cancer Bariatric surgery status 08/12/2018 Heart palpitations Hypotension Anemia PONV (postoperative nausea and vomiting) s/p [id number], resolved with medications Hypothyroidism 2009 Family History Medical History Relation Name Comments Hypertension Daughter Obesity Daughter Cancer Father Renzo Hopper Cancer - (Adde d by TW Conv)/Family history of malignant neoplasm - (Added by TW Conv) Diabetes Father Renzo Hopper Family history of diabetes mellitus - (Added by TW Conv) Diabetes type II Father Renzo Hopper Type 2 Kathrine betes Mellitus - (Added by TW Conv) Heart attack Father Renzo Hopper Family history of myocardial infarction - (Added by TW Conv) Heart disease Father Renzo Hopper Heart Disease - (Added by TW Conv) Obesity Father Renzo Hopper Overweight - ( Added by TW Conv) Stroke Father Renzo Hopper Stroke Syndrom e - (Added by TW Conv) Vitamin D deficiency Father Renzo Hopper Cancer Maternal Grandfather Cancer - (Added by TW Conv) Heart disease Maternal Grandmother Heart Disease - (Added by TW Conv) Diabetes Mother Sadia Hopper Family history of diabetes mellitus - (Added by TW Conv) Diabetes type II Mother Sadia Hopper Type 2 Diab etes Mellitus - (Added by TW Conv) Hypertension Mother Sadia Hopper Hypertension - (Added by TW Conv)/Hypertension - (Added by TW Conv)/Family history of hypertension - (Added by TW Conv) Kidney disease Mother Sadia Hopper Obesity Mother Sadia Hopper Overweight - (A dded by TW Conv)/Morbid obesity - (Added by TW Conv) Diabetes type II Other Type 2 Diab etes Mellitus - Relation: Grandmother (Added by TW Conv) Diabetes Sister Maria Victoria Dupras Hypertension Sister Maria Victoria Dupras Obesity Sister Maria Victoria Dupras Overweight - ( Added by TW Conv) Rheum arthritis Sister Maria Victoria Dupras Anesthesia problems Neg Hx Relation Name Status Comments Daughter Father Renzo Hopper Maternal Grandfather Maternal Grandmother Mother Sadia Hopper Other Sister Maria Victoria Yosiras Social History Tobacco Use Types Packs/Day Years Used Date Smoking Tobacco: Never Smokeless Tobacco: Never Tobacco Cessation:Counseling Given: No Alcohol Use Standard Drinks/Week Comments No 0 (1 standard drink = 0.6 oz pur e alcohol) AUDIT-C Answer Date Recorded Q1: How often do you have a drink containing alc ohol? Never 08/12/2023 Average Number of Drinks Not on file 024 Frequency of Binge Drinking Not on file 02/0 02/2024 Comments No Sex and Gender Information Value Date Recorded Sex Assigned at Not on file Legal Sex Female 1:33 AM PATROL MAN Gender Identity Female 12/05/2019 1:42 PM CDT Sexual Orientation Not on file Obstetrics History Last Filed Vital Signs Vital Sign Reading Time Taken Comments Blood Pressure 135/84 12/19/2024 9:04 AM CDT Pulse 85 12/19/2024 9:04 AM CDT Temperature 36.7 C (98.1 F) 12/19/2024 9:04 AM CDT Respiratory Rate 18 12/02/2019 8:05 AM CDT Oxygen Saturation 98% 09/19/2024 11:00 AM CDT Inhaled Oxygen Concentration - - Weight 62.2 kg (137 lb 3.2 oz) 12/19/2024 9:04 A M CDT Height 167.6 cm (5' 6) 12/19/2024 9:04 AM CDT Body Mass Index 22.14 12/19/2024 9:04 AM CDT Plan of Treatment Health Maintenance Due Date Last Done Comments Colon Cancer Screening-Colonoscopy 1955 Depression Screening 1954 Hepatitis B Screening 1972 Zoster Vaccine (1 of 2) 2004 06/25/2017 Well Visit 65+ 12/26/2019 Foot Exam 09/03/2020 09/04/2019, 01/02, 01/16/2019, Additional history exists Fall Risk Assessment 12/01/2020 12/02/2019 Pneumococcal vaccine 65+ (2 of 2 - PCV) 05/23/2021 05/23/2020, 06/04/2006 Osteoporosis Screening-Bone Density Scan 08/29/2021 08/29/2019 Dilated Eye Exam 01/27/2022 01/27/2021 DTaP/Tdap/Td Vaccine (3 - Td or Tdap) 03/16/2023 03/16/2013, 03/10/2007 Covid-19 Vaccine (5 - 2023-2 5 season) 2024 12/04/2021, 06/04/2021, 10/10/2020, Additional history exists Influenza Vaccine (#1) 2025 , 03/16/2020, 04/15/2018, Additional history exists Hemoglobin A1C 06/20/2025 12/19/2024, 02/2 11/2024, 04/11/2024, Additional history exists Albumin Creatinine Ratio, Urine 08/29/2025 08/29/2024, 09/08/2023, 05/18/2022, Additional history exists Lipid Panel 08/29/2025 08/29/2024, 03/0 12/2023, 09/18/2022, Additional history exists eGFR 08/29/2025 08/29/2024, 03/0 12/2023, 05/18/2022, Additional history exists Breast Cancer Screening-Mammogram 08/31/2025 08/31/2024, 08/31/2024, 10/14/2023, Additional history exists Hepatitis C Screening Completed 11/11/2017 Procedures Procedure Name Priority Date/Time Associated Diagnosis Comments POCT HEMOGLOBIN A1C Routine 12/19/2024 9:10 AM CDT Type 2 diabetes mellitus with hyperglycemia, unspecified whether middle or intermediate school principal insulin use (HCC) POCT GLUCOSE [id number] Routine 12/19/2024 9: 08 AM CDT Type 2 diabetes mellitus with hyperglycemia, unspecified whether middle or intermediate school principal insulin use (HCC) EGFR Routine 08/29/2024 11:14 AM PATROL MAN Type 2 diabetes mellitus with hyperglycemia, with long-term current use of insulin (HCC) LIPID PANEL Routine 08/29/2024 11:14 AM PATROL MAN Type 2 diabetes mellitus with hyperglycemia, with long-term current use of insulin (HCC) ALBUMIN CREATININE RATIO, URINE Routine 08/29/2024 11:14 AM PATROL MAN Type 2 diabetes mellitus with hyperglycemia, with long-term current use of insulin (HCC) DIABETIC EYE EXAM Routine 01/27/2021 HEPATITIS C ANTIBODY Routine Gen Lab 11/11/2017 12:58 PM CDT from Last 3 Months or Most Recently Relevant to Health Maintenance Results * (ABNORMAL) POCT hemoglobin A1c (12/19/2024 9:10 AM CDT) [facility] Hemoglobin A1C, POC 7.0(A) 4.0 - 5.6 % Blood 12/19/2024 9:10 AM CDT Result Duane Sinha MD POINT OF CARE TEST ORDERABLES Fi nal Result * POCT glucose (12/19/2024 9:08 AM CDT) Glucose Blood, POC 158 Normal Fasting 70 - 100, Random <200 mg/dL Blood 12/19/2024 9:08 AM CDT Result Duane Sinha MD POINT OF CARE TEST ORDERABLES Fi nal Result * eGFR (08/29/2024 11:14 AM PATROL MAN) eGFR 80 >=60 mL/min/1. 73 m2 Comment: Interpretive Data Reference Interval Normal >/= 90 mL/min/1.73m2 Mildly decreased* 60 - 89 mL/min/1.73m2 Mildly to moderately decreased 45 - 59 mL/min/1.73m2 Moderately to severely decreased 30 - 44 mL/min/1.73m2 Severely decreased 15 - 29 mL/min/1.73m2 Kidney Failure < 15 mL/min/1.73m2 *Relative to young adult level Estimated glomerular filtration rate is determined by the 2020 CKD-EPI equation recommended by the National Kidney Foundation (A Unifying Approach to GFR Estimation: Recommendations of the NKF-ASK Task Force on Reassessing the Inclusion of Race in Diagnosing Kidney Disease, JASN 2020). The CKD-EPI equation should not be used for patients with unstable renal function and has not been validated in children and those over 70. Current interpretive data was last reviewed 2021. Blood 08/29/2024 11:1 4 AM PATROL MAN 08/29/2024 11:49 AM PATROL MAN Result Duane Sinha MD LAB BLOOD ORDERABLES Final Resul t [facility] Department [place] [address] * Albumin Creatinine Ratio, Urine (08/29/2024 11:14 AM PATROL MAN) Albumin Ur <12.0 mg/L Comment: Interpretive Data No reference range established. Current interpretive data was last revised 2018. Creatinine Ur 66.6 mg/dL [facility] Comment: Interpretive Data No reference range established. Current interpretive data was last revised 2018. Albumin Creatinine Ratio, Ur <18 1 - 29 mg/g [facility] Urine 08/29/2024 11:1 4 AM PATROL MAN 08/29/2024 11:49 AM PATROL MAN us Vikki Sinha MD LAB URINE ORDERABLES Final Resul t [facility] [place] [address] * Lipid panel (08/29/2024 11:14 AM PATROL MAN) Cholesterol 132 30 - 199 mg/dL Comment: Interpretive Data Ages < or = 19 years Acceptable: <170 mg/dL Borderline high: 170-199 mg/dL High: >or= 200 mg/dL Ages > or = 20 years Desirable: <200 mg/dL Borderline high: 200-239 mg/dL High: >or= 240 mg/dL Literature References: 1. Expert Panel on Integrated Guidelines for Cardiovascular Health and Risk Reduction in Children and Adolescents. Pediatrics 2011;128:S213 2. NCEP Expert Panel. Circulation 2004;110:227 Current Interpretive Data was last revised on 2018. Triglycerides 102 <=149 mg/dL [facility] Comment: Interpretive Data Ages < or = 9 years Acceptable: <75 mg/dL Borderline high: 75-99 mg/dL High: >or= 100 mg/dL Ages 10 to 20 years Acceptable: <90 mg/dL Borderline high: 90-129 mg/dL High: >or= 130 mg/dL Ages > or = 20 years Desirable: <150 mg/dL Borderline high: 150-199 mg/dL High: 200-499 mg/dL Very high: >or= 499 mg/dL Literature References: 1. Expert Panel on Integrated Guidelines for Cardiovascular Health and Risk Reduction in Children and Adolescents. Pediatrics 2011;128:S213 2. NCEP Expert Panel. Circulation 2004;110:227 Current Interpretive Data was last revised on 2018. HDL 63 >=40 mg/dL [facility] Comment: Interpretive Data Ages < or = 19 years Acceptable: >45 mg/dL Borderline low: 40-45 mg/dL Low: <40 mg/dL Ages > or = 20 years Desirable: >or= 60 mg/dL Low: <40 mg/dL Literature References: 1. Expert Panel on Integrated Guidelines for Cardiovascular Health and Risk Reduction in Children and Adolescents. Pediatrics 2011;128:S213 2. NCEP Expert Panel. Circulation 2004;110:227 Current Interpretive Data was last revised on 2018. LDL, calculated 50 <=129 mg/dL [facility] Comment: Interpretive Data Ages < or = 19 years Acceptable: <110 mg/dL Borderline high: 110-129 mg/dL High: >or= 130 mg/dL Ages > or = 20 years Optimal: <100 mg/dL Near optimal: 100-129 mg/dL Borderline high: 130-159 mg/dL High: >160 mg/dL Calculated using the Eren LDL-C estimating equation. This equation was implemented on 2024. Prior to this date LDL-C was estimated using the Friedewald equation. Literature References: 1. Expert Panel on Integrated Guidelines for Cardiovascular Health and Risk Reduction in Children and Adolescents. Pediatrics 2011;128:S213 2. NCEP Expert Panel. Circulation 2004;110:227 3. Eren Gil al. JEANETTE Cardiol. 2019November 02;5(5):540-548. doi: 10.1001/jamacardio.2020.0013 Current Interpretive Data was last revised on 2024. Non-HDL Cholesterol 69 mg/dL [facility] Comment: Interpretive Data Ages < or = 19 years Acceptable: <120 mg/dL Borderline high: 120-144 mg/dL High: >145 mg/dL Ages > or = 20 years When triglycerides are >200 mg/dL, Non-HDL cholesterol is a secondary target of therapy with treatment goals that are 30 mg/dL greater than the LDL cholesterol target. Literature References: 1. Expert Panel on Integrated Guidelines for Cardiovascular Health and Risk Reduction in Children and Adolescents. Pediatrics 2011;128:S213 2. NCEP Expert Panel. Circulation 2004;110:227 Current Interpretive Data was last revised on 2018. Chol/HDL ratio 2 [facility] Blood 08/29/2024 11:1 4 AM PATROL MAN 08/29/2024 11:49 AM PATROL MAN Vikki Sinha MD LAB BLOOD ORDERABLES Final Resul t Performing Organization Address City/[facility]/ZIP Co de Phone Number [facility] [place] [address] [place] [address] * Diabetic Eye Exam (01/27/2021) Cesar Bill MD HEALTH MAINTENANCE Final Result * Hepatitis C antibody (11/11/2017 12:58 PM CDT) Hep C Ab Nonreactive Nonreactive [facility] Comment: Interpretive Data Positive and greyzone results should be confirmed by a molecular method. If positive or greyzone, a second separately collected sample should be submitted for Hepatitis C Virus RNA. Detection and Quantitation by Real-Time Reverse Call Center Rn-PCR.Current Interpretive data was last revised on 2016. Blood specimen (specimen) 11/11/2017 12:58 PM CDT 11/11/2017 1:15 PM CDT Narrative [facility] - 11/11/2017 2:13 PM CDT Jodi Mckinnon MD LAB MICROBIO LOGY - GENERAL ORDERABLES Edited Result - Final Performing Organization Address City/[facility]/ZIP Co de Phone Number [facility] [place] [address] [place] [address] from Last 3 Months or Most Recently Relevant to Health Maintenance Insurance MEDICARE [facility] MEDICARE [facility] MEDICARE [facility] FEDERAL Advance Directives For more information, please contact: [phone] * Full Code (Latest Code Status on File) Date Activated Date Inactivated Comments 12/01/2019 2:43 PM 12/02/2019 6:43 PM * Full Code Date Activated Date Inactivated Comments 05/12/2018 1:34 PM 05/14/2018 8:07 PM Care Teams Lacquer Dipping Machine Operator Relationship Specialty Start Date End Date Jagdish Zimmerman MD [address] [facility] [address] [place] [address] PCP - General Family Medicine 01/16/19 William Werner MD Referring Physician Endocrinology Diabetes & Metabolism 05/14/18
--- OUTSIDE RECORDS SUMMARY | 2025-02-19 09:01 | XMS_ITS | Clinical Summary ---
Author Organization [facility] Address [address] [place]: Epic Prelude ADT [place] [address] Care Team Providers Care Machine Oiler Name Role Phone Unavailable Primary Care Provider Unavailabl e Social History Tobacco Use Types Packs/Day Years Used Date Smoking Tobacco: Never Assessed Comments Unknown Sex and Gender Information Value Date Recorded Sex Assigned at Not on file Legal Sex Female 2:55 AM UTILIZATION SPECIALIST Gender Identity Not on file Sexual Orientation Not on file Plan of Treatment Health Maintenance Due Date Last Done Comments DTAP/TDAP/TD VACCINES (1 - Tdap) 1973 BREAST CANCER SCREENING 1994 COLORECTAL SCREENING 12/26/1999 Colorectal Cancer Screening 12/26/1999 FIT-DNA Q 3 years 12/26/1999 FIT/FOBT Q 1 year 12/26/1999 Flex Sig/CT Colonography Q 5 years 12/26/1999 PNEUMOCOCCAL VACCINE 50+ YEARS (1 of 1 - PCV) 12/26/19 05 ZOSTER VACCINE (1 of 2) 2004 OSTEOPOROSIS SCREENING 12/26/2019 INFLUENZA VACCINE (#1) 2025 RSV VACCINE (60+ or ) (1 - 1-dose 75+ series) 2029
--- OUTSIDE RECORDS SUMMARY | 2025-02-19 09:01 | XMS_ITS | Clinical Summary ---
Author Organization [facility] [employer] Address [address] [place] [address] Care Team Providers Care Investigator Internal Affairs Name Role Phone Jagdish Zimmerman MD Primary Care Provider [phone] Source Comments [facility] [employer],non-owned Affiliates and Associated Physician Practices is amultiple site organization consisting of ambulatory clinics and hospital sitesin [place], [place], [place] and [place]. This disclosure is being madepursuant to the Care Everywhere program and may not contain all information available regarding this patient. Last updated 18.[facility] [employer] Allergies Active Allergy Reactions Criticality Noted Date Comments Pseudoephedrine Base Anxiety Low 01/06/2017 Medications * Be aware that medications may not be up to date on this document. Alwaysverify current medications with the patient. levothyroxine (SYNTHROID) 25 MCG tablet Take by mouth. 01/06/2017 Active insulin glargine (LANTUS) vial Inject subcutaneou sly. 01/06/2017 Active fenofibrate (TRICOR) 48 MG tablet Take by mouth. 01/06/2017 Active doxycycline (ORACEA) 40 MG capsule Take by mouth. 01/06/2017 Active Cholecalciferol (VITAMIN D3) 1000 UNITS Take by mouth. 01/06/2017 Active quinapril (ACCUPRIL) 5 MG tablet Take by mouth. 01/06/2017 Active Vitamins/Mineral s TABS Take by mouth. 01/06/2017 Active estradiol (CLIMARA) 0.025 MG/24HR patch Apply to skin. 01/06/2017 Active Cyanocobalamin (VITAMIN B-12) 50 MCG Take by mouth. 01/06/2017 Active hydroCHLOROthiaz agueda (MICROZIDE) 12.5 MG capsule Take by mouth. 01/06/2017 Active montelukast (SINGULAIR) 10 MG tablet Take by mouth. 01/06/2017 Active Loratadine 10 MG Take by mouth. 01/06/2017 Active metFORMIN (GLUCOPHAGE) 500 MG tablet Take by mouth. 01/06/2017 Active dulaglutide (TRULICITY) 0.75 MG/0.5ML injection Inject subcutaneou sly. 01/06/2017 Active omeprazole EC (PRILOSEC OTC) 20 MG tablet Take by mouth. 01/06/2017 Active niacin CR (NIASPAN) 500 MG tablet Take by mouth. 01/06/2017 Active cetirizine (ZYRTEC) 5 MG tablet Take by mouth. 01/06/2017 Active insulin lispro (HUMALOG) 100 UNIT/ML vial Inject subcutaneou sly. 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 Gender Identity Not on file Sexual Orientation Not on file Last Filed Vital Signs Vital Sign Reading Time Taken Comments Blood Pressure 157/92 01/20/2017 12:14 PM CDT Pulse 87 01/20/2017 12:14 PM CDT Temperature - - Respiratory Rate - - Oxygen Saturation 98% 01/20/2017 12:14 PM CDT Inhaled Oxygen Concentration - - Weight 107.5 kg (237 lb) 01/20/2017 8:09 AM CDT Height 167.6 cm (5' 6) 01/20/2017 8:09 AM CDT Body Mass Index 38.25 01/20/2017 8:09 AM CDT Plan of Treatment Health Maintenance Due Date Last Done Comments BONE DENSITY TESTING 1955 COLOGUARD (AGES 45-75) - COL ON CA SCREENING 1954 COLON MONITORING 1954 COLONOSCOPY - COLON CA SCREENING 1954 CT COLONOGRAPHY - COLON CA SCREENING 1955 Colorectal Cancer Screening 1955 FIT - COLON CA SCREENING 1955 FLEX SIG - COLON CA SCREENING 1954 LIPID TESTING 1955 MAMMOGRAM 1955 MEDICARE AWV 12 MONTHS 1955 HEPATITIS C SCREENING 12/20/1972 DTAP/TDAP/TD VACCINES (1 - Tdap) 1973 PNEUMOCOCCAL VACCINE 50+ (1 of 1 - PCV) 2004 ZOSTER VACCINE (1 of 2) 2004 COVID-19 VACCINE (1 - 2023-2 5 season) 2024 DEPRESSION SCREENING 07/05/2024 INFLUENZA VACCINE (#1) 2025 Respiratory Syncytial Virus (RSV) Vaccine Pt: or over 60 yrs (1 - 1-dose 75+ series) 2029 HEPATITIS B VACCINE Aged Out No longe r eligible based on patient's age to complete this topic HIB VACCINE Aged Out No longer eligi ble based on patient's age to complete this topic HPV VACCINE Aged Out No longer eligi ble based on patient's age to complete this topic MENINGOCOCCAL (Group B) VACC INE SHARED DECISION-MAKING Aged Out No longer eligibl e based on patient's age to complete this topic MENINGOCOCCAL GROUPS A/C/Y/W VACCINE Aged Out No longer eligible b ased on patient's age to complete this topic Insurance [facility] MEDICARE ANTHEM MEDICARE ANTHEM Care Teams Investigator Internal Affairs Relationship Specialty Start Date End Date Jagdish Zimmerman MD [address] [place] [address] PCP - General 01/06/17
--- OUTSIDE RECORDS SUMMARY | 2025-02-19 09:01 | XMS_ITS ---
Author Organization [facility] Address [address] [place], [place] [address] Care Team Providers Care Geological Scout Name Role Phone Jagdish Zimmerman Primary Care Provider ROB Gregory Unavailable [phone] Allergies Allergen (clinical drug ingredient) Drug/Non Drug Allergy documented on EMR Reaction Allergy Type Onset Date Status ibuprofen Ibuprofen Unknown Drug Allergy Active Sudafed Unknown Drug Allergy 07/01/2022 active REASON FOR VISIT *General care, *General care, *Fungal nail check Medications Medication SIG (Take, Route, Frequency, Duration) Notes Start Date End Date Status Docusate Calcium 240 MG 1 capsule as nee ded Orally Once a day Active Dexcom G7 Sensor - as directed Active HumaLOG 100 UNIT/ML as directed Subcutaneous Active Levothyroxine Sodium 88 MCG 1 capsule in the morning on an empty stomach Orally Once a day Active Gvoke HypoPen 2-Pack 0.5 MG/0.1ML as directed Subcutaneous Act lyndsey Ozempic (2 MG/DOSE) 8 MG/3ML as directed Subcutaneous Act lyndsey Doxycycline Hyclate 100 MG as directed Intravenous Active Montelukast Sodium 10 MG 1 tablet Orally Once a day Active Lisinopril 2.5 MG 1 tablet Orally Once a day Active Jardiance 25 MG 1 tablet Orally Once a day Active Crestor 10 MG 1 tablet Orally Once a day Active metFORMIN HCl 500 MG 1 tablet with a madiha l Orally Once a day Active Encounters Encounter Location Date Provider Diagnosis [facility] [address] [place], [place] [id number] 08/09/2024 ROB AMOS Fungal infection of nail B35.1 ; Pain in right toe(s) M79.674 ; Pain in left toe(s) M79.675 ; Atherosclerosis of [place] arteries of extremities with intermittent claudication, bilateral [...] development of corns/rubbing injuries 08/09/2024 Atherosclerosis of [place] arteries of extremities with intermittent claudication, bilateral [...] risk diabetic foot care Provider Name:ROB AMOS, 05/10/2025 09:20:00 AM, [address] [facility] [address], [address], [phone], Progress Notes * ANTONETTE NIALLOB:[birth year] (69 yo F)Acc No.[id number]:08/09/2024 Patient: DAKOTA MALCOLMY Provider: Jeanine Amos DPM :1955 A ge:68 Y S ex:Female Date:08/09/2024 Address:[address] [place], [place] [id number] Pcp:Jagdish Zimmerman Subjective: * Chief Complaints: * 1 . *General care. 2. *General care. 3. *Fungal nail check. * HPI: H PI: General care P [...] alance difficulty, Numbness, Burning/Tingling. * Medical History: * Surgical History: H ysterectomy 12/1992, deviated septum 11/1994, lithotripsy (see list) [id number], herniated disk/lower back surgery 07/2003, Shoulder repair, right side 08/2005, gastric bypass 02/2018, Carpal Tunnel release 05/13/2015, panniculectomy 12/01/2019, cataract surgery . * Family History: F ather: PRN - [...] : Never used tobacco. * Medications: T aking Dexcom G7 Sensor - Miscellaneous as directed , Taking Docusate Calcium 240 MG Capsule 1 capsule as needed Orally Once a day , Taking Gvoke HypoPen 2-Pack 0.5 MG/0.1ML Solution Auto-injector as directed Subcutaneous , Taking Levothyroxine Sodium 88 MCG Capsule 1 capsule in the morning on an empty stomach Orally Once a day , Taking metFORMIN HCl 500 MG Tablet 1 tablet with a meal Orally Once a day , Taking Crestor 10 MG Tablet 1 tablet Orally Once a day , Taking Montelukast Sodium 10 MG Tablet 1 tablet Orally Once a day , Taking Jardiance 25 MG Tablet 1 tablet Orally Once a day , Taking Lisinopril 2.5 MG Tablet 1 tablet Orally Once a day , Taking Doxycycline Hyclate 100 MG Solution Reconstituted as directed Intravenous , Taking Ozempic (2 MG/DOSE) 8 MG/3ML Solution Pen-injector as directed Subcutaneous , Taking HumaLOG 100 UNIT/ML Solution Cartridge as directed Subcutaneous , Medication List reviewed and reconciled with the patient * Allergies: S udafed: Allergy - Onset Date 07/01/2022, Ibuprofen. Objective: * Vitals: * Examination: C onstitutional: Constitutional T he [...] - M79.675 4 . A therosclerosis of [place] arteries of extremities with intermittent claudication, bilateral [...] nail check at risk diabetic foot care) * Billing Information: * Visit Code: 89257 Office Visit, Est Pt., Level 3. * Procedure Codes: * Electronic signature of LUCIEN RUSSELL DPM on 02/19/2025 at 09:01 AM CDT Sign off status: Pending * Provider: Jeanine Amos DPM Date: 0 08/09/2024 Generated for Miriam aaron/Christopher/Martin on: 0 02/19/2025 09:01 AM CDT History and Physical Notes * HPI (History [...] Dermatologic Skin findings: Skin is warm, dr caleb, supple with no breaks in the skin. [...]
--- OUTSIDE RECORDS SUMMARY | 2025-02-19 09:01 | XMS_ITS | Encounter Summary ---
Author Organization [facility] Address [address] [facility] [address] Care Team Providers Care Channel Lip Stiffener Insoles Name Role Phone Jagdish Zimmerman MD Primary Care Provider [phone] Encounter Details Date Type Department Care Team (Late st Contact Info) Description 01/11/2023 Lab Requisition [facility] - DermPath Lab [address] [facility] [place] [address] Madiha Werner MD [address] [facility] [address] DE[place] [address] Social History Tobacco Use Types Packs/Day Years Used Date Smoking Tobacco: Never Smokeless Tobacco: Never Alcohol Use Standard Drinks/Week Comments No 0 (1 standard drink = 0.6 oz pur e alcohol) Comments Unknown Sex and Gender Information Value Date Recorded Sex Assigned at Not on file 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 Gender Identity Not on file Sexual Orientation Not on file documented as of this encounter Plan of Treatment Not on file documented as of this encounter Procedures Procedure Name Priority Date/Time Associated Diagnosis Comments DERMATOPATHOLOGY Routine 01/11/2023 10:0 4 AM CDT documented in this encounter Results * DERMATOPATHOLOGY (01/11/2023 10:04 AM CDT) Case Report Dermatopathology Report Case: [id number] Authorizing Provider: Madiha Werner MD Collected: 01/11/2023 10:04 AM Ordering Location: [facility] DermPath Lab Received: 01/11/2023 02:56 PM Pathologist: Bridgette Pete MD Specimen: Skin, left forehead superior 3 12:14 PM CDT DERMATOPATHOLOGY LABORATORY Final Diagnosis Specimen A. SKIN, left forehead superior: SQUAMOUS CELL CARCINOMA IN SITU, PRESENT AT THE BASE OF THE SPECIMEN (D04.39) (see microscopic description and comment) 3 12:14 PM CDT DERMATOPATHOLOGY LABORATORY at 1214 CDT Clinical History [place] R/O SCC VS SK 3 12:14 PM CDT DERMATOPATHOLOGY LABORATORY Gross Description Specimen A: Received is one formalin filled container labeled with the patient's name and designated left forehead superior. The specimen consists of a shave biopsy measuring 5x4x1 mm. Jar 0. 3 12:14 PM CDT DERMATOPATHOLOGY LABORATORY Microscopic Description Specimen A. SKIN, left forehead superior: The epidermis shows parakeratosis, full thickness disorderly maturation of keratinocytes, mitoses at different levels, and dyskeratotic cells. The lesion extends to the base of the biopsy. COMMENT: An invasive squamous cell carcinoma cannot be ruled out. 3 12:14 PM CDT DERMATOPATHOLOGY LABORATORY Disclaimer An external and internal positive and negative controls are appropriate for the histochemical, immunohistochemical and immunofluorescence stain(s) in this case (if any), except where stated explicitly. The performance characteristics of the stain(s) cited in this report were developed and its performance characteristic determined by the Dermatopathology Laboratory at [facility], directed by Dr. Yamil Thornton. These tests need not be, and therefore are not, approved by the [place] Food and Drug Administration. The tests are used for clinical purposes. Billing Codes Specimen Charges Stain Charges 31762 1 3 12:14 PM CDT DERMATOPATHOLOGY LABORATORY Embedded Images 3 12:14 PM CDT DERMATOPATHOLOGY LABORATORY Pathology/Cytolo gy TISSUE SPECIMEN FROM SKIN / Unknown 01/11/2023 10:04 AM CDT 01/11/2023 2:56 PM CDT us Madiha Werner MD LAB - PATHOLOGY/CYTOLOGY ORD ERABLES Final Result DERMATOPATHOLOGY LABORATORY [facility] - Department of Dermatology Specialized Medicine [address] [facility] 3rd Floor [address] [phone] documented in this encounter Visit Diagnoses Not on filedocumented in this encounter Care Teams Channel Lip Stiffener Insoles Relationship Specialty Start Date End Date Jagdish Zimmerman MD [address] [place] [address] PCP - General 01/06/17 documented as of this encounter
--- OUTSIDE RECORDS SUMMARY | 2025-02-19 09:01 | XMS_ITS | Encounter Summary ---
Author Organization [facility] Address [address] [facility] [place] [address] Care Team Providers Care Clinical Transplant Coordinator Name Role Phone Jagdish Zimmerman MD Primary Care Provider [phone] Encounter Details Date Type Department Care Team (Late st Contact Info) Description 05/16/2024 Lab Requisition [facility] - DermPath Lab [address] [facility] [place] [address] Madiha Werner MD [address] [facility] [address] [place] [address] Social History Tobacco Use Types Packs/Day Years Used Date Smoking Tobacco: Never Smokeless Tobacco: Never Alcohol Use Standard Drinks/Week Comments No 0 (1 standard drink = 0.6 oz pur e alcohol) Comments Unknown Sex and Gender Information Value Date Recorded Sex Assigned at Not on file Legal Sex Female 5:27 PM ORACLE BRM DEVELOPER Gender Identity Not on file Sexual Orientation Not on file documented as of this encounter Plan of Treatment Not on file documented as of this encounter Procedures Procedure Name Priority Date/Time Associated Diagnosis Comments DERMATOPATHOLOGY Routine 05/16/2024 9:16 AM ORACLE BRM DEVELOPER documented in this encounter Results * DERMATOPATHOLOGY (05/16/2024 9:16 AM ORACLE BRM DEVELOPER) Case Report Dermatopathology Report Case: [id number] Authorizing Provider: Madiha Werner MD Collected: 05/16/2024 09:16 AM Ordering Location: [facility] - Received: 05/17/2024 11:28 AM DermPath Lab Pathologist: Brea Zayas MD Specimen: Skin, crown 2:30 PM [facility] DERMATOPATHOLOGY LABORATORY Final Diagnosis Specimen A. 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 The specimen consists of a shave biopsy measuring 5x5x1 mm. Jar 0. 2:30 PM [facility] DERMATOPATHOLOGY LABORATORY Microscopic Description Specimen A. SKIN, crown: There is hyperkeratosis alternating with parakeratosis. There is epidermal hyperplasia with disorderly maturation of keratinocytes with nuclear pleomorphism confined to the lower half of the epidermis. Adnexal extension of the lesion is seen. 2:30 PM [facility] DERMATOPATHOLOGY LABORATORY Disclaimer An external and internal positive and negative controls are appropriate for the histochemical, immunohistochemical and immunofluorescence stain(s) in this case (if any), except where stated explicitly. The performance characteristics of the stain(s) cited in this report were developed and its performance characteristic determined by the Dermatopathology Laboratory at [facility], directed by Dr. Yamil Thornton. These tests need not be, and therefore are not, approved by the [place] Food and Drug Administration. The tests are used for clinical purposes. Billing Codes Specimen Charges Stain Charges 21973 1 2:30 PM [facility] DERMATOPATHOLOGY LABORATORY Embedded Images 4 2:30 PM [facility] DERMATOPATHOLOGY LABORATORY Pathology/Cytolo gy TISSUE SPECIMEN FROM SKIN / Unknown 05/16/2024 9:16 AM ORACLE BRM DEVELOPER 05/17/2024 11:28 AM ORACLE BRM DEVELOPER us Madiha Werner MD LAB - PATHOLOGY/CYTOLOGY ORD ERABLES Final Result DERMATOPATHOLOGY LABORATORY [facility] - Department of Dermatology [address], [address] [phone] documented in this encounter Visit Diagnoses Not on filedocumented in this encounter Care Teams Clinical Transplant Coordinator Relationship Specialty Start Date End Date Jagdish Zimmerman MD [address] [place] [address] PCP - General 01/06/17 documented as of this encounter
--- OUTSIDE RECORDS SUMMARY | 2025-02-19 09:01 | XMS_ITS ---
Author Organization [facility] Address [address] [place], [place] [phone] Care Team Providers Care Boring Inspector Name Role Phone Jagdish Zimmerman Primary Care Provider ROB Gregory Unavailable [phone] Allergies Allergen (clinical drug ingredient) Drug/Non Drug Allergy documented on EMR Reaction Allergy Type Onset Date Status ibuprofen Ibuprofen Unknown Drug Allergy Active Sudafed Unknown Drug Allergy 07/01/2022 active REASON FOR VISIT *General care, *Fungal nail check Medications Medication SIG (Take, Route, Frequency, Duration) Notes Start Date End Date Status Ozempic (2 MG/DOSE) 8 MG/3ML as directed Subcutaneous Act lyndsey Jardiance 25 MG 1 tablet Orally Once a day Active Doxycycline Hyclate 100 MG as directed Intravenous Active Crestor 10 MG 1 tablet Orally Once a day Active Montelukast Sodium 10 MG 1 tablet Orally Once a day Active Docusate Calcium 240 MG 1 capsule as nee ded Orally Once a day Active Gvoke HypoPen 2-Pack 0.5 MG/0.1ML as directed Subcutaneous Act lyndsey Dexcom G7 Sensor - as directed Active Levothyroxine Sodium 88 MCG 1 capsule in the morning on an empty stomach Orally Once a day Active metFORMIN HCl 500 MG 1 tablet with a madiha l Orally Once a day Active HumaLOG 100 UNIT/ML as directed Subcutaneous Active Losartan Potassium A ctive Vital Signs Height 66.00 in 02/08/2025 Weight 167 lbs 02/08/2025 BMI 26.95 kg/m2 02/08/2025 Height-cm 167.64 cm 02/08/2025 Weight-kg 75.75 kg 02/08/2025 Encounters Encounter Location Date Provider Diagnosis [facility] [address] [place], [place] [phone] 02/08/2025 ROB AMOS Fungal infection of nail B35.1 ; Pain in right toe(s) M79.674 ; Pain in left toe(s) M79.675 ; Atherosclerosis of [place] arteries of extremities with intermittent claudication, bilateral [...] development of corns/rubbing injuries 02/08/2025 Atherosclerosis of [place] arteries of extremities with intermittent claudication, bilateral [...] Provider Name:ROB AMOS, 05/10/2025 09:20:00 AM, [address] [facility] [address], [place], [id number], Progress Notes * DAKOTA WHITMANDARLEENOB:[birth year] (69 yo F)Acc No.[id number]:02/08/2025 Patient: YANNA MALCOLM Provider: Jeanine Amos DPM :1955 A ge:69 Y S ex:Female Date:02/08/2025 Address:[address] [place], [place] [id number] Pcp:Jagdish Zimmerman Subjective: * Chief Complaints: * 1 . *General care. 2. *Fungal nail check. * HPI: H PI: [...] alance difficulty, Numbness, Burning/Tingling. * Medical History: M edical History Verified. * Surgical History: H ysterectomy 12/1992, deviated septum 11/1994, lithotripsy (see list) [id number], herniated disk/lower back surgery 07/2003, Shoulder repair, right side 08/2005, gastric bypass 02/2018, Carpal Tunnel release 05/13/2015, panniculectomy 12/01/2019, cataract surgery . * Family History: F ather: PRN - Father: :: Cancer,,known absent , :: Thyroid Dz,,known absent , :: Diabetes,,known absent , :: Stroke,,known absent , :: Acid reflux,,known absent , :: Angina,,known absent . Mother: PRN - Mother: :: Hypertension,,known absent , :: Kidney stone,,known absent , :: Rheumatoid arthritis,,known absent , :: Bladder infection,,known absent , :: Arthritis,,known absent , :: Restless legs syndrome,,known absent . * Social History: M igrated Social History: M igrated Social History: History of tobacco use : , Smoking Status : Never used tobacco. * Medications: T aking Losartan Potassium , Taking Dexcom G7 Sensor - Miscellaneous as [...] Onset Date 07/01/2022, Ibuprofen. Objective: * Vitals: W t:167lbs, Wt-k.75 kg, [...] - M79.675 4 . A therosclerosis of [place] arteries of extremities with intermittent claudication, bilateral [...] care) * Billing Information: * Visit Code: * Procedure Codes: * Electronic signature of LUCIEN RUSSELL DPM on 02/19/2025 at 09:01 AM CDT Sign off status: Pending * Provider: Jeanine Amos DPM Date: 02/08/2025 Generated for Miriam aaron/Christopher/Martin on: 02/19/2025 09:01 AM CDT History and Physical [...] in the skin. Nail pathology: bilateral hallux fermni ls noted to have fungal presence - [...]
--- OUTSIDE RECORDS SUMMARY | 2025-02-19 09:01 | XMS_ITS | Encounter Summary ---
Author Organization [facility] Address [address] [place] [address] Care Team Providers Care Tire Installer Name Role Phone Unavailable Primary Care Provider Unavailabl e Encounter Details Date Type Department Care Team (Late st Contact Info) Description 11/24/2005 Outpatient [facility] [address] [facility] [place] [address] Ramakrishna Short MD [address] [facility] [address] [place] [address] Social History Tobacco Use Types Packs/Day Years Used Date Smoking Tobacco: Never Assessed Comments Unknown Sex and Gender Information Value Date Recorded Sex Assigned at Not on file Legal Sex Female 2:55 AM CERT OCCUPATIONAL THERAPY ASST Gender Identity Not on file Sexual Orientation Not on file documented as of this encounter Plan of Treatment Not on file documented as of this encounter Visit Diagnoses Not on filedocumented in this encounter
--- OUTSIDE RECORDS SUMMARY | 2025-02-19 09:02 | XMS_ITS | Patient Health Record ---
Author Organization [facility] Address [address] [place], [place] [id number] Care Team Providers Care Bull Rider Name Role Phone Zimmerman Jagdish Primary Care Provider ROB Gregory Unavailable [phone] Allergies Allergen (clinical drug ingredient) Drug/Non Drug Allergy documented on EMR Reaction Allergy Type Onset Date Status ibuprofen Ibuprofen Unknown Drug Allergy Active Sudafed Unknown Drug Allergy 07/01/2022 active Reason For Referral No Information Medications Medication SIG (Take, Route, Frequency, Duration) Notes Start Date End Date Status Ozempic (2 MG/DOSE) 8 MG/3ML as directed Subcutaneous Act lyndsey HumaLOG 100 UNIT/ML as directed Subcutaneous Active Jardiance 25 MG 1 tablet Orally Once a day Active Doxycycline Hyclate 100 MG as directed Intravenous Active Docusate Calcium 240 MG 1 capsule as nee ded Orally Once a day Active Gvoke HypoPen 2-Pack 0.5 MG/0.1ML as directed Subcutaneous Act lyndsey Losartan Potassium A ctive Dexcom G7 Sensor - as directed Active Crestor 10 MG 1 tablet Orally Once a day Active Montelukast Sodium 10 MG 1 tablet Orally Once a day Active Levothyroxine Sodium 88 MCG 1 capsule in the morning on an empty stomach Orally Once a day Active metFORMIN HCl 500 MG 1 tablet with a madiha l Orally Once a day Active Immunizations Vaccine Route Administration Date Status Comme nts Influenza, high dose seasonal Unknown 04/05/2023 Admini stered Influenza, unspecified formulation Unknown 04/29/2012 A dministered Influenza, unspecified formulation Unknown 05/16/2013 A dministered Influenza, unspecified formulation Unknown 04/15/2018 A dministered Influenza, unspecified formulation Unknown 03/16/2020 A dministered Pneumococcal polysaccharide PPV23 Unknown 05/23/2020 Ad ministered Tdap Unknown 03/10/2007 Administered Tdap Unknown 03/16/2013 Administered Vital Signs Height-cm 167.64 cm 02/08/2025 Weight-kg 75.75 kg 02/08/2025 Height 66.00 in 02/08/2025 Weight 167 lbs 02/08/2025 BMI 26.95 kg/m2 02/08/2025 Encounters Encounter Location Date Provider Diagnosis [facility] [address] [place] [id number] 08/09/2024 ROB ANGULO Fungal infection of nail B35.1 ; Pain in right toe(s) M79.674 ; Pain in left toe(s) M79.675 ; Atherosclerosis of [place] arteries of extremities with intermittent claudication, bilateral legs I70.213 ; Acquired keratoderma L85.1 ; Type 2 diabetes mellitus with other diabetic neurological complication E11.49 and Difficulty in walking R26.2 [facility] [address] [id number] 11/09/2024 ROB ANGULO Fungal infection of nail B35.1 ; Pain in right toe(s) M79.674 ; Pain in left toe(s) M79.675 ; Atherosclerosis of [place] arteries of extremities with intermittent claudication, bilateral legs I70.213 ; Acquired keratoderma L85.1 ; Type 2 diabetes mellitus with other diabetic neurological complication E11.49 and Difficulty in walking R26.2 [facility] [address] [id number] 02/08/2025 ROB ANGULO Fungal infection of nail B35.1 ; Pain in right toe(s) M79.674 ; Pain in left toe(s) M79.675 ; Atherosclerosis of [place] arteries of extremities with intermittent claudication, bilateral legs I70.213 ; Acquired keratoderma L85.1 ; Type 2 diabetes mellitus with other diabetic neurological complication E11.49 and Difficulty in walking R26.2 [facility] [address] [id number] 05/10/2024 ROB ANGULO Fungal infection of nail B35.1 ; Pain in right toe(s) M79.674 ; Pain in left toe(s) M79.675 ; Atherosclerosis of [place] arteries of extremities with intermittent claudication, bilateral legs I70.213 ; Acquired keratoderma L85.1 ; Type 2 diabetes mellitus with other diabetic neurological complication E11.49 and Difficulty in walking R26.2 Assessments Encounter Date Diagnosis (ICD Code) Assessment Notes Treatment Notes Treatment Clinical Notes Section Notes 05/10/2024 Fungal infection of nail (ICD-10 - B35.1) NAIL DEBRIDEMENT: Nails 1-5 Bilateral were debrided extensively with nail nippers and emery board, reducing length and girth to pink healthy tissue with any subungual debris and necrotic tissue removed 08/09/2024 Fungal infection of nail (ICD-10 - B35.1) NAIL DEBRIDEMENT: Nails 1-5 Bilateral were debrided extensively with nail nippers and emery board, reducing length and girth to pink healthy tissue with any subungual debris and necrotic tissue removed 11/09/2024 Fungal infection of nail (ICD-10 - B35.1) NAIL DEBRIDEMENT: Nails 1-5 Bilateral were debrided extensively with nail nippers and emery board, reducing length and girth to pink healthy tissue with any subungual debris and necrotic tissue removed 02/08/2025 Fungal infection of nail (ICD-10 - B35.1) NAIL DEBRIDEMENT: Nails 1-5 Bilateral were debrided extensively with nail nippers and emery board, reducing length and girth to pink healthy tissue with any subungual debris and necrotic tissue removed 02/08/2025 Pain in right toe(s) (ICD-10 - M79.674) 11/09/2024 Pain in right toe(s) (ICD-10 - M79.674) 08/09/2024 Pain in right toe(s) (ICD-10 - M79.674) 05/10/2024 Pain in right toe(s) (ICD-10 - M79.674) 05/10/2024 Pain in left toe(s) (ICD-10 - M79.675) Bunion: Discussed various treatments with the patient regarding hallux abducto valgus deformity. Discussed conservative care consisting of padding, wider shoes, anti-inflammator ies, and orthotics. Discussed surgical treatment options and answered all questions about the intra-operative and post-operative treatment course. Toe spacer provided to patient to help separate toes and decrease development of corns/rubbing injuries 08/09/2024 Pain in left toe(s) (ICD-10 - M79.675) Bunion: Discussed various treatments with the patient regarding hallux abducto valgus deformity. Discussed conservative care consisting of padding, wider shoes, anti-inflammator ies, and orthotics. Discussed surgical treatment options and answered all questions about the intra-operative and post-operative treatment course. Toe spacer provided to patient to help separate toes and decrease development of corns/rubbing injuries 11/09/2024 Pain in left toe(s) (ICD-10 - M79.675) Bunion: Discussed various treatments with the patient regarding hallux abducto valgus deformity. Discussed conservative care consisting of padding, wider shoes, anti-inflammator ies, and orthotics. Discussed surgical treatment options and answered all questions about the intra-operative and post-operative treatment course. Toe spacer provided to patient to help separate toes and decrease development of corns/rubbing injuries 02/08/2025 Pain in left toe(s) (ICD-10 - [...] development of corns/rubbing injuries 11/09/2024 Atherosclerosis of [place] arteries of extremities with intermittent claudication, bilateral legs (ICD-10 - I70.213) 02/08/2025 Atherosclerosis of [place] arteries of extremities with intermittent claudication, bilateral legs (ICD-10 - I70.213) 08/09/2024 Atherosclerosis of [place] arteries of extremities with intermittent claudication, bilateral legs (ICD-10 - I70.213) 05/10/2024 Atherosclerosis of [place] arteries of extremities with intermittent claudication, bilateral legs (ICD-10 - I70.213) 05/10/2024 Acquired keratoderma (ICD-10 - L85.1) 08/09/2024 Acquired keratoderma (ICD-10 - L85.1) 02/08/2025 Acquired keratoderma (ICD-10 - L85.1) 11/09/2024 Acquired keratoderma (ICD-10 - L85.1) 02/08/2025 Type 2 diabetes mellitus with other diabetic neurological complication (ICD-10 - E11.49) 11/09/2024 Type 2 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 Advised patient to continue using Ciclopirox for fungal toenails 2. A total of 2 corns or calluses, as described in the note above, were cut and pared utilizing a #15 blade 11/09/2024 Other 1. Advised patient to continue using Ciclopirox for fungal toenails 2. A total of 2 corns or calluses, as described in the note above, were cut and pared utilizing a #15 blade 02/08/2025 Other 1. Advised patient to continue using Ciclopirox for fungal toenails 2. A total of 2 corns or calluses, as described in the note above, were cut and pared utilizing a #15 blade 05/10/2024 Other 1. Advised patient to continue using Ciclopirox for fungal toenails 2. A total of 2 corns or calluses, as described in the note above, were cut and pared utilizing a #15 blade Plan Of Treatment Next Appt Details Provider Name:ROB Bird KEV, 05/10/2025 09:20:00 AM, [address] [facility] [address], [place], [place], [id number], Insurance Providers Payer Name Payer Address Payer Phone Subscriber Number Group Number Insured Name Patient Relationship to Insured Coverage Start Date Coverage End Date Medicare Part B [place] [address] [place] [phone] [id number] YANNA MARIE Self - patient is the insured [facility] ([facility]) ATTN CLAIMS [address] [place] [address] [id number] YANNA MARIE Self - patient is the insured Medical (General) History Surgical History Surgery Date(Month/Year) Hysterectomy 12/1992 deviated septum 11/1994 lithotripsy (see list) [id number] herniated disk/lower back surgery 07/2003 Shoulder repair, right side 08/2005 gastric bypass 02/2018 Carpal Tunnel release 05/13/2015 panniculectomy 12/01/2019 cataract surgery 2009,2014
--- OUTSIDE RECORDS SUMMARY | 2025-02-19 09:02 | XMS_ITS | Encounter Summary ---
Author Organization [facility] Address [address] [place] [address] Care Team Providers Care Principal Systems Architect Name Role Phone Unavailable Primary Care Provider Unavailabl e Encounter Details Date Type Department Care Team (Late st Contact Info) Description 10/30/[address] [facility] 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
--- OUTSIDE RECORDS SUMMARY | 2025-02-19 09:02 | XMS_ITS | Encounter Summary ---
Author Organization [facility] Address [address] [place] [address] Care Team Providers Care Taxicab Driver Name Role Phone Unavailable Primary Care Provider Unavailabl e Encounter Details Date Type Department Care Team (Late st Contact Info) Description 10/18/2001 [facility]patient [facility] [address] [place] [address] 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
--- OUTSIDE RECORDS SUMMARY | 2025-02-19 09:02 | XMS_ITS ---
Author Organization [facility] Address [address] [place], [place] [id number] Care Team Providers Care Director Trade Name Role Phone Elsie Jagdish Primary Care Provider ROB Gregory Unavailable [phone] Allergies Allergen (clinical drug ingredient) Drug/Non Drug Allergy documented on EMR Reaction Allergy Type Onset Date Status ibuprofen Ibuprofen Unknown Drug Allergy Active Sudafed Unknown Drug Allergy 07/01/2022 active REASON FOR VISIT GENERAL CARE, *General care, *General care, *Fungal nail check Medications Medication SIG (Take, Route, Frequency, Duration) Notes Start Date End Date Status HumaLOG 100 UNIT/ML as directed Subcutaneous Active Doxycycline Hyclate 100 MG as directed Intravenous Active Jardiance 25 MG 1 tablet Orally Once a day Active Ozempic (2 MG/DOSE) 8 MG/3ML as directed Subcutaneous Act lyndsey Gvoke HypoPen 2-Pack 0.5 MG/0.1ML as directed Subcutaneous Act lyndsey metFORMIN HCl 500 MG 1 tablet with a madiha l Orally Once a day Active Levothyroxine Sodium 88 MCG 1 capsule in the morning on an empty stomach Orally Once a day Active Montelukast Sodium 10 MG 1 tablet Orally Once a day Active Crestor 10 MG 1 tablet Orally Once a day Active Dexcom G7 Sensor - as directed Active Losartan Potassium A ctive Docusate Calcium 240 MG 1 capsule as nee ded Orally Once a day Active Vital Signs Height 66.00 in 11/09/2024 Weight 167 lbs 11/09/2024 BMI 26.95 kg/m2 11/09/2024 Height-cm 167.64 cm 11/09/2024 Weight-kg 75.75 kg 11/09/2024 Encounters Encounter Location Date Provider Diagnosis [facility] [address] [place], [place] [id number] 11/09/2024 ROB KEV Fungal infection of nail B35.1 ; Pain in right toe(s) M79.674 ; Pain in left toe(s) M79.675 ; Atherosclerosis of [place] arteries of extremities with intermittent claudication, bilateral [...] development of corns/rubbing injuries 11/09/2024 Atherosclerosis of [place] arteries of extremities with intermittent claudication, bilateral [...] Provider Name:ROB AMOS, 05/10/2025 09:20:00 AM, [address] [facility], [address], [phone], Progress Notes * DAKOTA WHITMANDARLEENOB:[birth year] (69 yo F)Acc No.[id number]:11/09/2024 Patient: YANNA MALCOLM Provider: Jeanine Amos DPM :1955 A ge:68 Y S ex:Female Date:11/09/2024 Address:[address] [place], [place] [id number] Pcp:Jagdish Zimmerman Subjective: * Chief Complaints: * 1 . GENERAL CARE. 2. *General care. 3. *General care. 4. *Fungal nail check. * HPI: H PI: [...] 12/1992, deviated septum 11/1994, lithotripsy (see list) [phone], herniated disk/lower back surgery 07/2003, Shoulder repair, [...] UNIT/ML Solution Cartridge as directed Subcutaneous , Discontinued Lisinopril 2.5 MG Tablet 1 tablet Orally Once a day , Medication List reviewed and reconciled with [...] - M79.675 4 . A therosclerosis of [place] arteries of extremities with intermittent claudication, bilateral [...] SKIN LESIONS, 2 TO 4, Modifiers: Q8 , 92114 DEBRIDE NAIL, 6 OR MORE, Modifiers: 59 , Q8 * Follow Up: 3 Months (Reason: fungal nail check at risk diabetic foot care) * Billing Information: * Visit Code: * Procedure Codes: 40076 TRIM SKIN LESIONS, 2 TO 4. Modifiers: Q8 73167 DEBRIDE NAIL, 6 OR MORE. Modifiers: 59, Q8 * Electronic signature of LUCIEN RUSSELL DPM on 02/19/2025 at 09:01 AM CDT Sign off status: Pending * Provider: Jeanine Amso DPM Date: 0 11/09/2024 Generated for Miriam aaron/Christopher/José Miguelitting on: 0 02/19/2025 09:01 AM CDT History [...]
--- OUTSIDE RECORDS SUMMARY | 2025-02-19 09:02 | XMS_ITS | Encounter Summary ---
Author Organization [facility] Address [address] [place] [address] Care Team Providers Care Energy Conservation Representative Name Role Phone Unavailable Primary Care Provider Unavailabl e Encounter Details Date Type Department Care Team (Late st Contact Info) Description 10/12/2005 Outpatient [facility] [address] [place] [address] Ramakrishna Short MD [address] [facility] [address] [place] [address] Social History Tobacco Use Types Packs/Day Years Used Date Smoking Tobacco: Never Assessed Comments Unknown Sex and Gender Information Value Date Recorded Sex Assigned at Not on file Legal Sex Female 2:55 AM PARALEGALS Gender Identity Not on file Sexual Orientation Not on file documented as of this encounter Plan of Treatment Not on file documented as of this encounter Visit Diagnoses Not on filedocumented in this encounter
== END 2025-02-19 08:47 | disposition home or self-care (01) ==
LOC: ANHIMG 08:47
PROVIDERS: PCP Family Medicine; Visit Provider Family Medicine
DX: M85.851 Other specified disorders of bone density and structure, right thigh (principal); Z78.0 Asymptomatic menopausal state
CPT/HCPCS: 77080

== ENCOUNTER 2025-05-16 14:17 | Outpatient (CLI) | payer MEDICARE, BC, SELFPAY ==
--- OUTSIDE RECORDS SUMMARY | 2024-08-09 04:20 | XMS_ITS ---
Author Organization [facility] Address [address] [place], [place] [id number] Care Team Providers Care Pre Press Operator Name Role Phone Jagdish Zimmerman Primary Care Provider ROB Gregory Unavailable [phone] Allergies Allergen (clinical drug ingredient) Drug/Non Drug Allergy documented on EMR Reaction Allergy Type Onset Date Status ibuprofen Ibuprofen Unknown Drug Allergy Active Sudafed Unknown Drug Allergy 07/01/2022 active REASON FOR VISIT *General care, *General care, *Fungal nail check Medications Medication SIG (Take, Route, Frequency, Duration) Notes Start Date End Date Status Docusate Calcium 240 MG Capsule 1 capsule as needed Orally Once a day Active Dexcom G7 Sensor - Miscellaneous as directed Active HumaLOG 100 UNIT/ML Solution Cartridge as directed Subcutaneous Active Levothyroxine Sodium 88 MCG Capsule 1 capsule in the morning on an empty stomach Orally Once a day Active Gvoke HypoPen 2-Pack 0.5 MG/0.1ML Solution Auto-injector as directed Subcutaneous Ac tive Ozempic (2 MG/DOSE) 8 MG/3ML Solution Pen-injector as directed Subcutaneous Act lyndsey Doxycycline Hyclate 100 MG Solution Reconstituted as directed Intravenous Active Montelukast Sodium 10 MG Tablet 1 tablet Orally Once a day Active Lisinopril 2.5 MG Tablet 1 tablet Orally Once a day Active Jardiance 25 MG Tablet 1 tablet Orally O nce a day Active Crestor 10 MG Tablet 1 tablet Orally Onc e a day Active metFORMIN HCl 500 MG Tablet 1 tablet wit h a meal Orally Once a day Active Social History Social History Additional Details Category Social Info Options Details Migrated Social History Migrated Social History History of tobacco use : , Smoking Status : Never used tobacco Encounters Encounter Location Date Provider Diagnosis [facility] [address] [facility] [address] [place], [place] [id number] 08/09/2024 ROB KEV Fungal infection of nail B35.1 ; Pain in right toe(s) M79.674 ; Pain in left toe(s) M79.675 ; Atherosclerosis of [place] arteries of extremities with intermittent claudication, bilateral legs I70.213 ; Acquired keratoderma L85.1 ; Type 2 diabetes mellitus with other diabetic neurological complication E11.49 and Difficulty in walking R26.2 Assessments Encounter Date Diagnosis (ICD Code) Assessment Notes Treatment Notes Treatment Clinical Notes Section Notes 08/09/2024 Fungal infection of nail (ICD-10 - B35.1) NAIL DEBRIDEMENT: Nails 1-5 Bilateral were debrided extensively with nail nippers and emery board, reducing length and girth to pink healthy tissue with any subungual debris and necrotic tissue removed 08/09/2024 Pain in right toe(s) (ICD-10 - M79.674) 08/09/2024 Pain in left toe(s) (ICD-10 - M79.675) Bunion: Discussed various treatments with the patient regarding hallux abducto valgus deformity. Discussed conservative care consisting of padding, wider shoes, anti-inflammator ies, and orthotics. Discussed surgical treatment options and answered all questions about the intra-operative and post-operative treatment course. Toe spacer provided to patient to help separate toes and decrease development of corns/rubbing injuries 08/09/2024 Atherosclerosis of [place] arteries of extremities with intermittent claudication, bilateral legs (ICD-10 - I70.213) 08/09/2024 Acquired keratoderma (ICD-10 - L85.1) 08/09/2024 Type 2 diabetes mellitus with other diabetic neurological complication (ICD-10 - E11.49) 08/09/2024 Difficulty in walking (ICD-10 - R26.2) 08/09/2024 Other 1. Advised patient to continue using Ciclopirox for fungal toenails 2. A total of 2 corns or calluses, as described in the note above, were cut and pared utilizing a #15 blade Plan Of Treatment Treatment Notes Assessment Notes Fungal infection of nail NAIL DEBRIDEMEN T: Nails 1-5 Bilateral were debrided extensively with nail nippers and emery board, reducing length and girth to pink healthy tissue with any subungual debris and necrotic tissue removed Pain in left toe(s) Bunion: Discussed various treatments with the patient regarding hallux abducto valgus deformity. Discussed conservative care consisting of padding, wider shoes, anti-inflammatories, and orthotics. Discussed surgical treatment options and answered all questions about the intra-operative and post-operative treatment course. Toe spacer provided to patient to help separate toes and decrease development of corns/rubbing injuries Other 1. Advised patient to continue using Ciclopirox for fungal toenails 2. A total of 2 corns or calluses, as described in the note above, were cut and pared utilizing a #15 blade Next Appt Details Follow Up: 3 Months, Reason: fungal nail check at risk diabetic foot care Provider Name:ROB AMOS, 08/02/2025 09:00:00 AM, [address] [facility] [address], [facility] [address], [place], [place], [id number], History and Physical Notes * HPI (History of Present Illness) Category Sub-Category Detail Notes Category Not es HPI General care Patient presents to the office for diabetic foot care. Patient states that their nails are thickened, elongated and painful. Patient states that it is aggravated by shoe gear. Onset is gradual., Patient denies taking blood thinners., Date last seen by Dr. Zimmerman was 02/21/2024., Initials mf Examination Category Sub-Category Detail Notes Category Not es Dermatologic Skin findings: Skin is warm, dr ellis, supple with no breaks in the skin. Nail pathology: bilateral hallux fermin ls noted to have fungal presence - clearing noted to proximal 1/2 of nail Hyperkeratotic Skin Lesion There is evid ence of hyperkeratotic skin lesions present on the, plantar aspect of the 5th metatarsal head, bilateral Neurologic Gross sensation Gross sensation is intact to light touch. Vascular Dorsalis pedis pulse: 2/4, bilateral Edema: No edema Capillary refill: less than 3 seconds, bilaterally Posterior tibial pulse: 2/4, bilaterally Musculoskeletal Muscle Strength Muscle strength is 5/5 in regards to dorsiflexion, plantarflexion, inversion, and eversion in bilateral lower extremities. Hallux Abducto Valgus There is lateral d eviation of the left hallux., There is a moderate medial prominence noted. Constitutional Constitutional The patient is a wake, alert, well developed, well groomed and well nourished. Progress Notes * NIALL WHITMANOB:[birth year] (69 yo F)Acc No.[id number]:08/09/2024 Patient: YANNA MALCOLM Provider: Jeanine Amos DPM :1955 A ge:68 Y S ex:Female Date:08/09/2024 Address:[address] [place], [place] [id number] Pcp:Jagdish Zimmerman Subjective: * Chief Complaints: * * General care*General care*Fungal nail check * HPI: H PI: General care P atient presents to the office for diabetic foot care. Patient states that their nails are thickened, elongated and painful. Patient states that it is aggravated by shoe gear. Onset is gradual., Patient denies taking blood thinners., Date last seen by Dr. Zimmerman was 02/21/2024., Initials mf. * ROS: G eneral / Constitutional: Patient denies c hills, fatigue, fever. C ardiovascular: Patient denies h air loss on leg, edema, cramps in legs and feet. M usculoskeletal: Patient denies c hildhood foot problems, weakness. ? P eripheral Vascular: Patient denies c old extremities, blood clots in legs. S kin: Patient denies d iscoloration, nail changes. ? N eurologic: Patient denies b alance difficulty, Numbness, Burning/Tingling. * Surgical History: Hysterectomy 12/1992 deviated septum 11/1994 lithotripsy (see list) [id number] herniated disk/lower back surgery 07/2003 Shoulder repair, right side 08/2005 gastric bypass 02/2018 Carpal Tunnel release 05/13/2015 panniculectomy 12/01/2019 cataract surgery * Family History: F ather: PRN - Father: :: Cancer,,known absent , :: Thyroid Dz,,known absent , :: Diabetes,,known absent , :: Stroke,,known absent , :: Acid reflux,,known absent , :: Angina,,known absent . M other: PRN - Mother: :: Hypertension,,known absent , :: Kidney stone,,known absent , :: Rheumatoid arthritis,,known absent , :: Bladder infection,,known absent , :: Arthritis,,known absent , :: Restless legs syndrome,,known absent . * Social History: M igrated Social History: M igrated Social History: History of tobacco use : , Smoking Status : Never used tobacco. * Medications: T akingDexcom G7 Sensor - Miscellaneous as directed Docusate Calcium 240 MG Capsule 1 capsule as needed Orally Once a day Gvoke HypoPen 2-Pack 0.5 MG/0.1ML Solution Auto-injector as directed Subcutaneous Levothyroxine Sodium 88 MCG Capsule 1 capsule in the morning on an empty stomach Orally Once a day metFORMIN HCl 500 MG Tablet 1 tablet with a meal Orally Once a day Crestor 10 MG Tablet 1 tablet Orally Once a day Montelukast Sodium 10 MG Tablet 1 tablet Orally Once a day Jardiance 25 MG Tablet 1 tablet Orally Once a day Lisinopril 2.5 MG Tablet 1 tablet Orally Once a day Doxycycline Hyclate 100 MG Solution Reconstituted as directed Intravenous Ozempic (2 MG/DOSE) 8 MG/3ML Solution Pen-injector as directed Subcutaneous HumaLOG 100 UNIT/ML Solution Cartridge as directed Subcutaneous Medication List reviewed and reconciled with the patientTaking Dexcom G7 Sensor - Miscellaneous as directed Taking Docusate Calcium 240 MG Capsule 1 capsule as needed Orally Once a day Taking Gvoke HypoPen 2-Pack 0.5 MG/0.1ML Solution Auto-injector as directed Subcutaneous Taking Levothyroxine Sodium 88 MCG Capsule 1 capsule in the morning on an empty stomach Orally Once a day Taking metFORMIN HCl 500 MG Tablet 1 tablet with a meal Orally Once a day Taking Crestor 10 MG Tablet 1 tablet Orally Once a day Taking Montelukast Sodium 10 MG Tablet 1 tablet Orally Once a day Taking Jardiance 25 MG Tablet 1 tablet Orally Once a day Taking Lisinopril 2.5 MG Tablet 1 tablet Orally Once a day Taking Doxycycline Hyclate 100 MG Solution Reconstituted as directed Intravenous Taking Ozempic (2 MG/DOSE) 8 MG/3ML Solution Pen-injector as directed Subcutaneous Taking HumaLOG 100 UNIT/ML Solution Cartridge as directed Subcutaneous Medication List reviewed and reconciled with the patient * Allergies: S udafed: Allergy - Onset Date 07/01/2022Ibuprofen Objective: * Examination: C onstitutional: Constitutional T he patient is awake, alert, well developed, well groomed and well nourished.. M usculoskeletal: Muscle Strength M uscle strength is 5/5 in regards to dorsiflexion, plantarflexion, inversion, and eversion in bilateral lower extremities.. Hallux Abducto Valgus T here is lateral deviation of the left hallux., There is a moderate medial prominence noted.. N eurologic: Gross sensation G ross sensation is intact to light touch..? V ascular: Dorsalis pedis pulse: 2 /4, bilateral. Posterior tibial pulse: 2 /4, bilaterally. Capillary refill: l ess than 3 seconds, bilaterally. Edema: N o edema. D ermatologic: Skin findings: S kin is warm, dry, supple with no breaks in the skin.. Nail pathology: b ilateral hallux nails noted to have fungal presence - clearing noted to proximal 1/2 of nail. Hyperkeratotic Skin Lesion T here is evidence of hyperkeratotic skin lesions present on the, plantar aspect of the 5th metatarsal head, bilateral. ? Assessment: * Assessment: 1. F ungal infection of nail - B35.1 (Primary) 2 . P ain in right toe(s) - M79.674 3 . P ain in left toe(s) - M79.675 4 . A therosclerosis of [place] arteries of extremities with intermittent claudication, bilateral legs - I70.213 & #160; 5 . A cquired keratoderma - L85.1 6 . T ype 2 diabetes mellitus with other diabetic neurological complication - E11.49 7 . D ifficulty in walking - R26.2 Plan: * Treatment: 2. P ain in left toe(s) Notes: Bunion: Discussed various treatments with the patient regarding hallux abducto valgus deformity. Discussed conservative care consisting of padding, wider shoes, anti-inflammatories, and orthotics. Discussed surgical treatment options and answered all questions about the intra-operative and post-operative treatment course. T oe spacer provided to patient to help separate toes and decrease development of corns/rubbing injuries 3. O thers Notes: 1. Advised patient to continue using Ciclopirox for fungal toenails 2. A total of 2 corns or calluses, as described in the note above, were cut and pared utilizing a #15 blade * Follow Up: 3 Months (Reason: fungal nail check at risk diabetic foot care) Billing Information: * Visit Code: 27992 Office Visit, Est Pt., Level 3. * Procedure Codes: * Electronic signature of LUCIEN RUSSELL DPM on 05/16/2025 at 03:15 PM CLOUD ADMINISTRATOR Sign off status: Pending * Provider: Jeanine Amos DPM Date: 0 08/09/2024 Generated for Miriam aaron/Christopher/Martin on: 1 07/16/2024 03:15 PM CLOUD ADMINISTRATOR
--- OUTSIDE RECORDS SUMMARY | 2024-11-09 03:00 | XMS_ITS ---
Author Organization [facility] Address [address] [place], [place] [id number] Care Team Providers Care Deli Slicer Name Role Phone Jagdish Zimmerman Primary Care Provider ROB Gregory Unavailable [phone] Allergies Allergen (clinical drug ingredient) Drug/Non Drug Allergy documented on EMR Reaction Allergy Type Onset Date Status ibuprofen Ibuprofen Unknown Drug Allergy Active Sudafed Unknown Drug Allergy 07/01/2022 active REASON FOR VISIT GENERAL CARE, *General care, *General care, *Fungal nail check Medications Medication SIG (Take, Route, Frequency, Duration) Notes Start Date End Date Status HumaLOG 100 UNIT/ML Solution Cartridge as directed Subcutaneous Active Doxycycline Hyclate 100 MG Solution Reconstituted as directed Intravenous Active Jardiance 25 MG Tablet 1 tablet Orally O nce a day Active Ozempic (2 MG/DOSE) 8 MG/3ML Solution Pen-injector as directed Subcutaneous Act lyndsey Gvoke HypoPen 2-Pack 0.5 MG/0.1ML Solution Auto-injector as directed Subcutaneous Ac tive metFORMIN HCl 500 MG Tablet 1 tablet wit h a meal Orally Once a day Active Levothyroxine Sodium 88 MCG Capsule 1 capsule in the morning on an empty stomach Orally Once a day Active Montelukast Sodium 10 MG Tablet 1 tablet Orally Once a day Active Crestor 10 MG Tablet 1 tablet Orally Onc e a day Active Dexcom G7 Sensor - Miscellaneous as directed Active Losartan Potassium A ctive Docusate Calcium 240 MG Capsule 1 capsule as needed Orally Once a day Active Social History Social History Additional Details Category Social Info Options Details Migrated Social History Migrated Social History History of tobacco use : , Smoking Status : Never used tobacco Vital Signs Height 66.00 in 11/09/2024 Weight 167 lbs 11/09/2024 BMI 26.95 kg/m2 11/09/2024 Height-cm 167.64 cm 11/09/2024 Weight-kg 75.75 kg 11/09/2024 Encounters Encounter Location Date Provider Diagnosis [facility] [address] [place], [place] [id number] 11/09/2024 ROB AMOS Fungal infection of nail B35.1 ; Pain in right toe(s) M79.674 ; Pain in left toe(s) M79.675 ; Atherosclerosis of [place] arteries of extremities with intermittent claudication, bilateral legs I70.213 ; Acquired keratoderma L85.1 ; Type 2 diabetes mellitus with other diabetic neurological complication E11.49 and Difficulty in walking R26.2 Assessments Encounter Date Diagnosis (ICD Code) Assessment Notes Treatment Notes Treatment Clinical Notes Section Notes 11/09/2024 Fungal infection of nail (ICD-10 - B35.1) NAIL DEBRIDEMENT: Nails 1-5 Bilateral were debrided extensively with nail nippers and emery board, reducing length and girth to pink healthy tissue with any subungual debris and necrotic tissue removed 11/09/2024 Pain in right toe(s) (ICD-10 - M79.674) 11/09/2024 Pain in left toe(s) (ICD-10 - M79.675) Bunion: Discussed various treatments with the patient regarding hallux abducto valgus deformity. Discussed conservative care consisting of padding, wider shoes, anti-inflammator ies, and orthotics. Discussed surgical treatment options and answered all questions about the intra-operative and post-operative treatment course. Toe spacer provided to patient to help separate toes and decrease development of corns/rubbing injuries 11/09/2024 Atherosclerosis of [place] arteries of extremities with intermittent claudication, bilateral legs (ICD-10 - I70.213) 11/09/2024 Acquired keratoderma (ICD-10 - L85.1) 11/09/2024 Type 2 diabetes mellitus with other diabetic neurological complication (ICD-10 - E11.49) 11/09/2024 Difficulty in walking (ICD-10 - R26.2) 11/09/2024 Other 1. Advised patient to continue using [...] AMOS, 08/02/2025 09:00:00 AM, [address] [place] [address], [place], [place], [id number], History and Physical Notes * HPI (History of Present Illness) Category Sub-Category Detail Notes Category Not es HPI General care Patient presents to the office for diabetic foot care. Patient states that their nails are thickened, elongated and painful. Patient states that it is aggravated by shoe gear. Onset is gradual., Patient denies taking blood thinners., Date last seen by Dr. Zimmerman was September 2024., Initials JMR Examination Category Sub-Category Detail Notes Category Not [...] * NIALL WHITMANOB:[birth year] (69 yo F)Acc No.[id number]:11/09/2024 Patient: YANNA MALCOLM Provider: Jeanine Amos DPM :1955 A ge:68 Y S ex:Female Date:11/09/2024 Address:[address] [place], [place] [id number] Pcp:Jagdish Zimmerman Subjective: * Chief Complaints: * G ENERAL CARE*General care*General care*Fungal nail check * HPI: H PI: General care P atient presents to the office for diabetic foot care. Patient states that their nails are thickened, elongated and painful. Patient states that it is aggravated by shoe gear. Onset is gradual., Patient denies taking blood thinners., Date last seen by Dr. Zimmerman was September 2024., Initials JMR. * ROS: G eneral / Constitutional: Patient [...] denies b alance difficulty, Numbness, Burning/Tingling. * Medical History: No Medical History Documented Medical History Verified * Surgical History: Hysterectomy 12/1992 deviated septum 11/1994 lithotripsy (see list) [id number] herniated disk/lower back surgery 07/2003 Shoulder repair, right side 08/2005 gastric bypass 02/2018 Carpal Tunnel release 05/13/2015 panniculectomy 12/01/2019 cataract surgery Surgical History verified. * Hospitalization/Major Diagno stic Procedure: No Hospitalization Documented. Hospitalization Verified. * Family History: F ather: PRN - [...] , :: Restless legs syndrome,,known absent . F amily History Verified.. * Social History: M igrated Social History: M igrated Social History: History of tobacco use : , Smoking Status : Never used tobacco. Social History Verified. * Medications: T akingLosartan Potassium Dexcom G7 Sensor - Miscellaneous as directed Docusate [...] 100 UNIT/ML Solution Cartridge as directed Subcutaneous Taking Losartan Potassium Taking Dexcom G7 Sensor - Miscellaneous as directed Taking Docusate Calcium 240 MG Capsule 1 capsule as needed Orally Once a day Taking Gvoke HypoPen 2-Pack 0.5 MG/0.1ML Solution Auto- injector as directed Subcutaneous Taking Levothyroxine Sodium 88 [...] 100 UNIT/ML Solution Cartridge as directed Subcutaneous DiscontinuedLisinopril 2.5 MG Tablet 1 tablet Orally Once a day Medication List reviewed and reconciled with the patientDiscontinued Lisinopril 2.5 MG Tablet 1 tablet Orally Once a day Medication List reviewed and reconciled with the patient * Allergies: S udafed: Allergy - Onset Date 07/01/2022IbuprofenyesAllergies Verified. Objective: * Vitals: W t:167lbs, Wt-k.75 kg, Ht: 66.00 in, Ht-cm: 167.64 cm, BMI:26.95Index, Body Surface Area: 1.88. * Examination: C onstitutional: Constitutional T he [...] - M79.675 4 . A therosclerosis of [place] arteries of extremities with intermittent claudication, bilateral [...] and pared utilizing a #15 blade * Immunizations: Immunization record has been reviewed and updated. * Procedure Codes: 1 1056 TRIM SKIN LESIONS, 2 TO 4, Modifiers: Q8 67862 DEBRIDE NAIL, 6 OR MORE, Modifiers: 59 , Q8 * Follow Up: 3 Months (Reason: fungal nail check at risk diabetic foot care) Billing Information: * Procedure Codes: 01217 TRIM SKIN LESIONS, 2 TO 4. Modifiers: Q8 93031 DEBRIDE NAIL, 6 OR MORE. Modifiers: 59, Q8 * Electronic signature of LUCIEN RUSSELL DPM on 05/16/2025 at 03:15 PM HOME PERFORMANCE CONSULTANT Sign off status: Pending * Provider: Jeanine Amos DPM Date: 0 11/09/2024 Generated for Miriam aaron/Christopher/Martin on: 1 07/16/2024 03:15 PM HOME PERFORMANCE CONSULTANT
--- OUTSIDE RECORDS SUMMARY | 2025-02-08 03:20 | XMS_ITS ---
Author Organization [facility] Address [address] [place], [place] [id number] Care Team Providers Care Safety Tech Name Role Phone Elsie Jagdish Primary Care Provider ROB Gregory Unavailable [phone] Allergies Allergen (clinical drug ingredient) Drug/Non Drug Allergy documented on EMR Reaction Allergy Type Onset Date Status ibuprofen Ibuprofen Unknown Drug Allergy Active Sudafed Unknown Drug Allergy 07/01/2022 active REASON FOR VISIT *General care, *Fungal nail check Medications Medication SIG (Take, Route, Frequency, Duration) Notes Start Date End Date Status HumaLOG 100 UNIT/ML Solution Cartridge as directed Subcutaneous Active Ozempic (2 MG/DOSE) 8 MG/3ML Solution Pen-injector as directed Subcutaneous Act lyndsey Doxycycline Hyclate 100 MG Solution Reconstituted as directed Intravenous Active Jardiance 25 MG Tablet 1 tablet Orally O nce a day Active Montelukast Sodium 10 MG Tablet 1 tablet Orally Once a day Active metFORMIN HCl 500 MG Tablet 1 tablet wit h a meal Orally Once a day Active Levothyroxine Sodium 88 MCG Capsule 1 capsule in the morning on an empty stomach Orally Once a day Active Gvoke HypoPen 2-Pack 0.5 MG/0.1ML Solution Auto-injector as directed Subcutaneous Ac tive Docusate Calcium 240 MG Capsule 1 capsule as needed Orally Once a day Active Crestor 10 MG Tablet 1 tablet Orally Onc e a day Active Dexcom G7 Sensor - Miscellaneous as directed Active Losartan Potassium A ctive Social History Social History Additional Details Category Social Info Options Details Migrated Social History Migrated Social History History of tobacco use : , Smoking Status : Never used tobacco Vital Signs Height 66.00 in 02/08/2025 Weight 167 lbs 02/08/2025 BMI 26.95 kg/m2 02/08/2025 Height-cm 167.64 cm 02/08/2025 Weight-kg 75.75 kg 02/08/2025 Encounters Encounter Location Date Provider Diagnosis [facility] [address] [place], [place] [id number] 02/08/2025 ROB AMOS Fungal infection of nail B35.1 ; Pain in right toe(s) M79.674 ; Pain in left toe(s) M79.675 ; Atherosclerosis of king salmon arteries of extremities with intermittent claudication, bilateral legs I70.213 ; Acquired keratoderma L85.1 ; Type 2 diabetes mellitus with other diabetic neurological complication E11.49 and Difficulty in walking R26.2 Assessments Encounter Date Diagnosis (ICD Code) Assessment Notes Treatment Notes Treatment Clinical Notes Section Notes 02/08/2025 Fungal infection of nail (ICD-10 - B35.1) NAIL DEBRIDEMENT: Nails 1-5 Bilateral were debrided extensively with nail nippers and emery board, reducing length and girth to pink healthy tissue with any subungual debris and necrotic tissue removed 02/08/2025 Pain in right toe(s) (ICD-10 - M79.674) 02/08/2025 Pain in left toe(s) (ICD-10 - M79.675) Bunion: Discussed various treatments with the patient regarding hallux abducto valgus deformity. Discussed conservative care consisting of padding, wider shoes, anti-inflammator ies, and orthotics. Discussed surgical treatment options and answered all questions about the intra-operative and post-operative treatment course. Toe spacer provided to patient to help separate toes and decrease development of corns/rubbing injuries 02/08/2025 Atherosclerosis of king salmon arteries of extremities with intermittent claudication, bilateral legs (ICD-10 - I70.213) 02/08/2025 Acquired keratoderma (ICD-10 - L85.1) 02/08/2025 Type 2 diabetes mellitus with other diabetic neurological complication (ICD-10 - E11.49) 02/08/2025 Difficulty in walking (ICD-10 - R26.2) 02/08/2025 Other 1. Advised patient to continue using [...] AMOS, 08/02/2025 09:00:00 AM, [address] [facility], [facility] [address], [place], [id number], History and Physical Notes * HPI (History of Present Illness) Category Sub-Category Detail Notes Category Not es HPI General care Patient presents to the office for diabetic foot care. Patient states that their nails are thickened, elongated and painful. Patient states that it is aggravated by shoe gear. Onset is gradual., Patient denies taking blood thinners., Date last seen by Dr. Zimmerman was 2024., Initials FH Examination Category Sub-Category Detail Notes Category Not es Dermatologic Skin findings: Skin is warm, dr ellsi, supple with no breaks in the skin. [...] * NIALL WHITMANOB:[birth year] (69 yo F)Acc No.[id number]:02/08/2025 Patient: YANNA MALCOLM Provider: Jeanine Amos DPM :1955 A ge:69 Y S ex:Female Date:02/08/2025 Address:[address] [place], [place] [id number] Pcp:Jagdish Zimmerman Subjective: * Chief Complaints: * * General care*Fungal nail check * HPI: H PI: General care P atient presents to the office for diabetic foot care. Patient states that their nails are thickened, elongated and painful. Patient states that it is aggravated by shoe gear. Onset is gradual., Patient denies taking blood thinners., Date last seen by Dr. Zimmerman was 2024., Initials FH. * ROS: G eneral / Constitutional: Patient [...] 12/1992 deviated septum 11/1994 lithotripsy (see list) 8321-1818 herniated disk/lower back surgery 07/2003 Shoulder repair, [...] 100 UNIT/ML Solution Cartridge as directed Subcutaneous * Allergies: S udafed: Allergy - Onset [...] - M79.675 4 . A therosclerosis of king salmon arteries of extremities with intermittent claudication, bilateral [...] and pared utilizing a #15 blade * Procedure Codes: 1 1056 TRIM SKIN LESIONS, 2 TO 4, Modifiers: Q8 66111 DEBRIDE NAIL, 6 OR MORE, Modifiers: 59 , Q8 * Preventive Medicine: Screenings: F all risk screening F all Risk Assessment: N o falls in the past year. * Follow Up: 3 Months (Reason: fungal nail check at risk diabetic foot care) Billing Information: * Procedure Codes: 76674 TRIM SKIN LESIONS, 2 TO 4. Modifiers: Q8 82076 DEBRIDE NAIL, 6 OR MORE. Modifiers: 59, Q8 * Electronic signature of LUCIEN RUSSELL DPM on 05/16/2025 at 03:14 PM FLOORWORKER LASTING Sign off status: Pending * Provider: Jeanine Amos DPM Date: 0 02/08/2025 Generated for Miriam aaron/Christopher/Martin on: 07/16/2024 03:14 PM FLOORWORKER LASTING
--- OUTSIDE RECORDS SUMMARY | 2025-05-10 03:20 | XMS_ITS ---
Author Organization [facility] Address [address] [place], [place] [id number] Care Team Providers Care Linen Room Worker Name Role Phone Elsie Jagdish Primary Care Provider ROB Gregory Unavailable [phone] Allergies Allergen (clinical drug ingredient) Drug/Non Drug Allergy documented on EMR Reaction Allergy Type Onset Date Status ibuprofen Ibuprofen Unknown Drug Allergy Active Sudafed Unknown Drug Allergy 07/01/2022 active REASON FOR VISIT *General care Medications Medication SIG (Take, Route, Frequency, Duration) Notes Start Date End Date Status Doxycycline Hyclate 100 MG Solution Reconstituted as directed Intravenous Active Ozempic (2 MG/DOSE) 8 MG/3ML Solution Pen-injector as directed Subcutaneous Act lyndsey Losartan Potassium A ctive HumaLOG 100 UNIT/ML Solution Cartridge as directed Subcutaneous Active Dexcom G7 Sensor - Miscellaneous as directed Active Montelukast Sodium 10 MG Tablet 1 tablet Orally Once a day Active Jardiance 25 MG Tablet 1 tablet Orally O nce a day Active Crestor 10 MG Tablet 1 tablet Orally Onc e a day Active Levothyroxine Sodium 88 MCG Capsule 1 capsule in the morning on an empty stomach Orally Once a day Active metFORMIN HCl 500 MG Tablet 1 tablet wit h a meal Orally Once a day Active Docusate Calcium 240 MG Capsule 1 capsule as needed Orally Once a day Active Gvoke HypoPen 2-Pack 0.5 MG/0.1ML Solution Auto-injector as directed Subcutaneous Ac tive Social History Social History Additional Details Category Social Info Options Details Migrated Social History Migrated Social History History of tobacco use : , Smoking Status : Never used tobacco Vital Signs Height 66.00 in 05/10/2025 Weight 167 lbs 05/10/2025 BMI 26.95 kg/m2 05/10/2025 Height-cm 167.64 cm 05/10/2025 Weight-kg 75.75 kg 05/10/2025 Encounters Encounter Location Date Provider Diagnosis [facility] [address] [place], [place] [id number] 05/10/2025 ROB AMOS Assessments Encounter Date Diagnosis (ICD Code) Assessment Notes Treatment Notes Treatment Clinical Notes Section Notes 05/10/2025 Other Preventing Fall s: Care Instructions material was published Plan Of Treatment Treatment Notes Assessment Notes Other Preventing Falls: Ca re Instructions material was published Next Appt Details Provider Name:ROB AMOS, 08/02/2025 09:00:00 AM, [address], [place], [place], [id number], History and Physical Notes * HPI (History of Present Illness) Category Sub-Category Detail Notes Category Not es HPI General care Patient presents to the office for diabetic foot care. Patient states that their nails are thickened, elongated and painful. Patient states that it is aggravated by shoe gear. Onset is gradual., Patient denies taking blood thinners., Date last seen by Dr. Zimmerman was 02/2025., Initials mf Progress Notes * NIALL WHITMANOB:[birth year] (69 yo F)Acc No.[id number]:05/10/2025 Patient: YANNA MALCOLM Provider: Jeanine Amos DPM :1955 A ge:69 Y S ex:Female Date:05/10/2025 Address:[address] [place], [place] [id number] Pcp:Jagdish Zimmerman Subjective: * Chief Complaints: * * General care * HPI: H PI: General care P atient presents to the office for diabetic foot care. Patient states that their nails are thickened, elongated and painful. Patient states that it is aggravated by shoe gear. Onset is gradual., Patient denies taking blood thinners., Date last seen by Dr. Zimmerman was 02/2025., Initials mf. * Surgical History: Hysterectomy 12/1992 deviated septum 11/1994 lithotripsy (see list) [id number] herniated disk/lower back surgery 07/2003 Shoulder repair, right side 08/2005 gastric bypass 02/2018 Carpal Tunnel release 05/13/2015 panniculectomy 12/01/2019 cataract surgery 2009,2014 Surgical History verified. * Family History: F ather: PRN - [...] List reviewed and reconciled with the patientTaking Losartan Potassium Taking Dexcom G7 Sensor - [...] 167.64 cm, BMI:26.95Index, Body Surface Area: 1.88. Plan: * Treatment: * Preventive Medicine: Screenings: B NC, height, and weight: F all Risk Assessment: One fall with injury in the past year, Plan of Care: Documented, Type of fall plan of care: Balance, strength and gait training or instruction provided, Referral to exercise program for balance, strength or gait training. Billing Information: * Procedure Codes: * Electronic signature of LUCIEN RUSSELL DPM on 05/16/2025 at 03:15 PM DUST SAMPLER Sign off status: Pending * Provider: Jeanine Amos DPM Date: 07/10/2024 Generated for Miriam aaron/Christopher/Martin on: 07/16/2024 03:15 PM DUST SAMPLER
--- NOTE | ~2025-05-16 | XR_ITS ---
PROCEDURE(S): XR abdomen/kub 1V INDICATION(S): Calculus of kidney COMPARISON(S): None. TECHNIQUE: 2 supine radiographic images was/were obtained. FINDINGS: Bowel gas: The bowel gas pattern is non-specific. There is no evidence of bowel obstruction. There is large amount of bowel gas and significant bowel content is seen, limiting evaluation. Soft tissues: Surgical clips project over the right hemipelvis. There is enlargement of the liver. The craniocaudal dimension is at least 25 cm. Bones: Osseous structures appear to be intact. Degenerative change. No definite calcific density is seen overlying the renal beds or expected courses of the ureters. IMPRESSION: No definite urinary tract stones are seen by plain film. If there is clinical indication, CT without contrast the be considered. Reviewed, dictated and finalized at location A. ER SKIDDER IMPRESSION: No definite urinary tract stones are seen by plain film. If there i s clinical indication, CT without contrast the be considered.
--- OUTSIDE RECORDS SUMMARY | 2025-05-16 15:15 | XMS_ITS | Clinical Summary ---
Author Organization [facility] Medical [facility] 1 Address [address] [place] [address] Care Team Providers Care Shower Attendant Name Role Phone William Werner MD Unavailable [phone] Jagdish Zimmerman MD Primary Care Provider [...] hyperglycemia, with long-term current use of insulin ([facility]) Inject 1 mL (1 mg total) into the muscle as instructed as needed (for severe hypoglycemia) 1 kit 3 3 Active Lactobacillus acidophilus 10 billion cell capsule Take by mouth Active pen needle, diabetic (BD Ultra-Fine Mini Pen Needle) 31 gauge x 3/16 needleIndications: Type 2 diabetes mellitus with hyperglycemia, with long-term current use of insulin ([facility]) 6 per day as directed 600 each 3 4 Active empagliflozin (JARDIANCE) 25 mg tabletIndications: Type 2 diabetes mellitus with hyperglycemia, with long-term current use of insulin ([facility]) Take 1 tablet (25 mg total) by mouth daily 90 tablet 3 5 026 Active rosuvastatin (CRESTOR) 20 mg tabletIndications: Hyperlipidemia, unspecified hyperlipidemia type Take 1 tablet (20 mg total) by mouth daily 90 tablet 3 5 026 Active semaglutide (Ozempic) 2 mg/dose (8 mg/3 mL) pen injector injectionIndicatio ns:Type 2 diabetes mellitus with hyperglycemia, with long-term current use of insulin ([facility]) Inject 2 mg under the skin once [...] every morning 90 tablet 3 5 Active insulin lispro (HumaLOG Mayco) 100 unit/mL half-unit pen for injectionIndicatio ns:Type 2 diabetes mellitus with hyperglycemia, unspecified whether termite control representative insulin use (HCC) Inject 4 Units under the skin 3 (three) times a day before meals 1 unit for every 15 - 20 grams of carbs plus 1 for every 35 > 120 - TDD 10 units 12 mL 3 5 026 Active Dexcom G7 Sensor deviceIndications: Type 2 diabetes mellitus with hyperglycemia, unspecified whether termite control representative insulin use (HCC) CHANGE EVERY 10 DAYS 9 each 1 5 Active Active Problems Problem Noted Date Diagnosed Date Type 2 diabetes mellitus wit h other diabetic kidney complication, with long-term current use of insulin 10/05/2023 Iron deficiency anemia 09/30/2020 Abdominal pannus 09/01/2019 Overview (09/01/2019): Added automatically from request for surgery [id number] Excess skin of abdomen 08/15/2019 Insulin long-term use 01/16/2019 History of gastric bypass 08/12/2018 Bariatric surgery status 08/12/2018 Morbid (severe) obesity due to excess calories 1 Overview (04/11/2018): Added automatically from request for surgery [id number] NAFLD (nonalcoholic fatty liver disease) 018 Overview (04/11/2018): Added automatically from request for surgery [id number] GERD (gastroesophageal reflux disease) 8 Morbid obesity 11/03/2017 Sleep apnea 11/03/2017 Steatosis of liver 05/07/2017 Vitamin D deficiency 02/21/2016 Hypothyroidism 06/25/2014 Nephrolithiasis 06/25/2014 Type 2 diabetes mellitus with hyperglycemia 06/05 Overview (09/30/2020): Mahendra Allen Is a 64 y.o. female who [...] 01/08/2020 Assessment & Plan (05/12/2018 7:36 PM INTERIM CONTROLLER): 62 yo F with a prior history [...] Encounters Date Type Department Care Team Description 03/27/2025 10:40 AM CDT Office Visit [facility] Medicine Endocrinology Metabolism and Lipid [address] [facility] [address] [place] [address] [place] [address] Vikki Sinha MD Type 2 diabetes mellitus with hyperglycemia, unspecified whether shelter insulin use (HCC) (Primary Dx); Vitamin D deficiency; Type 2 diabetes mellitus with hyperglycemia, with long-term current use of insulin (HCC) 03/27/2025 Orders Only [facility] Medicine Endocrinology Metabolism and Lipid [address] [facility] 13th [place] [address] [place] [phone] Katlin Aguilar, SANIA Type 2 diabetes mellitus with hyperglycemia, unspecified whether termite control representative insulin use (HCC) 02/27/2025 Telephone [facility] Medicine Endocrinology Metabolism and Lipid [address] [facility] [address]th [place] [address] [place] [phone] Chantelle Mazariegos RMA ROI ([place]) from Last 3 Months Surgical History Surgery [...] Type 2 diabetes mellitus wit hout complications Type 2 diabetes mellitus - ( Added by TW Conv) Sleep apnea GERD (gastroesophageal reflux disease) Hyperlipidemia Liver disease Kidney stone Thyroid disease hypothyroid Anemia Skin cancer Bariatric surgery status 08/12/2018 Heart palpitations Hypotension Anemia PONV (postoperative nausea and vomiting) s/p [id number], resolved with medications Hypothyroidism 2009 Family History [...] (Added by TW Conv) Hypertension Mother Sadia Loudsiddharth Hypertension - (Added by TW Conv)/Hypertension - [...] Mother Sadia Hopper Other Sister Maria Victoria Keith Social History Tobacco Use Types Packs/Day Years Used Date Smoking Tobacco: Never Smokeless Tobacco: Never Tobacco Cessation:Counseling Given: Not Answered Alcohol Use Standard Drinks/Week Comments No 0 (1 standard drink = 0.6 oz pur e alcohol) AUDIT-C Answer Date Recorded Q1: How often do you have a drink containing alc ohol? Never 08/12/2023 Average Number of Drinks Not on file 024 Frequency of Binge Drinking Not on file 02/2024 Comments No Sex and Gender Information Value Date Recorded Sex Assigned at Not on file Legal Sex Female 1:33 AM INTERIM CONTROLLER Gender Identity Female 12/05/2019 1:42 PM CDT Sexual Orientation Not on file Last Filed Vital Signs Vital Sign Reading Time Taken Comments Blood Pressure 131/79 03/27/2025 10:35 AM CDT Pulse 73 03/27/2025 10:35 AM CDT Temperature 36.5 C (97.7 F) 03/27/2025 10:35 AM CDT Respiratory Rate 18 12/02/2019 8:05 AM CDT Oxygen Saturation 98% 09/19/2024 11:00 AM CDT Inhaled Oxygen Concentration - - Weight 61.8 kg (136 lb 3.2 oz) 03/27/2025 10:35 AM CDT Height 167.6 cm (5' 6) 03/27/2025 10:35 AM CDT Body Mass Index 21.98 03/27/2025 10:35 AM CDT Plan of Treatment Health Maintenance Due Date Last Done Comments Colon Cancer Screening-Colonoscopy 1955 Depression Screening 1955 Hepatitis B Screening 1972 Well Visit 65+ 12/26/2019 Foot Exam 09/03/2020 09/04/2019, 01/02, 01/16/2019, Additional history exists Fall Risk Assessment 12/01/2020 12/02/2019 Osteoporosis Screening-Bone Density Scan 08/29/2021 08/29/2019 Zoster Vaccine (2 of 3) 09/08/2021 07/14/19, 05/01/2021, 06/25/2017 Dilated Eye Exam 01/27/2022 01/27/2021 DTaP/Tdap/Td Vaccine (3 - Td or Tdap) 03/16/2023 03/16/2013, 03/10/2007 Covid-19 Vaccine (5 - 2024-2 6 season) 2025 12/04/2021, 06/04/2021, 10/10/2020, Additional history exists Influenza Vaccine (#1) 2025 , 04/02/2020, 03/16/2020, Additional history exists Albumin Creatinine Ratio, Urine 08/29/2025 08/29/2024, 09/08/2023, 05/18/2022, Additional history exists Lipid Panel 08/29/2025 08/29/2024, 03/0 12/2023, 09/18/2022, Additional history exists eGFR 08/29/2025 08/29/2024, 03/0 12/2023, 05/18/2022, Additional history exists Breast Cancer Screening-Mammogram 08/31/2025 08/31/2024, 08/31/2024, 10/14/2023, Additional history exists Hemoglobin A1C 09/24/2025 03/27/2025, 12/03, 08/29/2024, Additional history exists Hepatitis C Screening Completed 11/11/2017 Pneumococcal vaccine 65+ Completed 022, 05/23/2020, 05/23/2020, Additional history exists Procedures Procedure Name Priority Date/Time Associated Diagnosis Comments POCT HEMOGLOBIN A1C Routine 03/27/2025 10:43 AM CDT Type 2 diabetes mellitus with hyperglycemia, unspecified whether shelter insulin use (HCC) POCT GLUCOSE [id number] Routine 03/27/2025 10 :39 AM CDT Type 2 diabetes mellitus with hyperglycemia, unspecified whether shelter insulin use (HCC) EGFR Routine 08/29/2024 11:14 AM INTERIM CONTROLLER Type 2 diabetes mellitus with hyperglycemia, with long-term current use of insulin (HCC) LIPID PANEL Routine 08/29/2024 11:14 AM INTERIM CONTROLLER Type 2 diabetes mellitus with hyperglycemia, with long-term current use of insulin (HCC) ALBUMIN CREATININE RATIO, URINE Routine 08/29/2024 11:14 AM INTERIM CONTROLLER Type 2 diabetes mellitus with hyperglycemia, with long-term current use of insulin (HCC) DIABETIC EYE EXAM Routine 01/27/2021 HEPATITIS C ANTIBODY Routine Gen Lab 11/11/2017 12:58 PM CDT from Last 3 Months or Most Recently Relevant to Health Maintenance Results * (ABNORMAL) POCT hemoglobin A1c (03/27/2025 10:43 AM CDT) Hemoglobin A1C, POC 6.7(A) 4.0 - 5.6 % Blood 03/27/2025 10:4 3 AM CDT us Vikki Sinha MD POINT OF CARE TEST ORDERABLES Fi nal Result * POCT glucose (03/27/2025 10:39 AM CDT) Glucose Blood, POC 105 Normal Fasting 70 - 100, Random <200 mg/dL Blood 03/27/2025 10:3 9 AM CDT us Vikki Sinha MD POINT OF CARE TEST ORDERABLES Fi nal Result * eGFR (08/29/2024 11:14 AM INTERIM CONTROLLER) eGFR 80 >=60 mL/min/1. 73 m2 Comment: [...] reviewed 2021. Blood 08/29/2024 11:1 4 AM INTERIM CONTROLLER 08/29/2024 11:49 AM INTERIM CONTROLLER Vikki Sinha MD LAB BLOOD ORDERABLES Final Resul t Performing Organization Address [facility] de Phone Number [facility] [place] [address] * Albumin Creatinine Ratio, Urine (08/29/2024 11:14 AM INTERIM CONTROLLER) Albumin Ur <12.0 mg/L Comment: Interpretive Data No reference range established. Current interpretive data was last revised 2018. Creatinine Ur 66.6 mg/dL [facility] Comment: Interpretive Data No reference range established. Current interpretive data was last revised 2018. Albumin Creatinine Ratio, Ur <18 1 - 29 mg/g [facility] Urine 08/29/2024 11:1 4 AM INTERIM CONTROLLER 08/29/2024 11:49 AM INTERIM CONTROLLER Vikki Sinha MD LAB URINE ORDERABLES Final Resul t Performing Organization Address [facility] de Phone Number [facility] Department [place] [address] * Lipid panel (08/29/2024 11:14 AM INTERIM CONTROLLER) Cholesterol 132 30 - 199 mg/dL Comment: [...] revised on 2018. Triglycerides 102 <=149 mg/dL [facility] Comment: Interpretive Data Ages < or [...] on 2018. HDL 63 >=40 mg/dL [facility] Comment: Interpretive Data Ages < or [...] 2018. LDL, calculated 50 <=129 mg/dL [facility] Comment: Interpretive Data Ages < or = 19 years Acceptable: <110 mg/dL Borderline high: 110-129 mg/dL High: >or= 130 mg/dL Ages > or = 20 years Optimal: <100 mg/dL Near optimal: 100-129 mg/dL Borderline high: 130-159 mg/dL High: >160 mg/dL Calculated using the Jason LDL-C estimating equation. This equation was implemented on 2024. Prior to this date LDL-C was estimated using the Friedewald equation. Literature References: 1. Expert Panel on Integrated Guidelines for Cardiovascular Health and Risk Reduction in Children and Adolescents. Pediatrics 2011;128:S213 2. NCEP Expert Panel. Circulation 2004;110:227 3. Eren Bird et al. JEANETTE Cardiol. 2020 November 02;5(5):540-548. doi: 10.1001/jamacardio.2020.0013 Current Interpretive Data was last revised on 2024. Non-HDL Cholesterol 69 mg/dL [facility] Comment: Interpretive Data Ages < or [...] last revised on 2018. Chol/HDL ratio 2 [facility] Blood 08/29/2024 11:1 4 AM INTERIM CONTROLLER 08/29/2024 11:49 AM INTERIM CONTROLLER Vikki Sinha MD LAB BLOOD ORDERABLES Final Resul t [facility] [place] [address] * Diabetic Eye Exam (01/27/2021) Historical Provider HEALTH MAINTENANCE Final Result * Hepatitis C antibody (11/11/2017 12:58 PM CDT) Hep C Ab Nonreactive Nonreactive [facility] Comment: Interpretive Data Positive and greyzone results should be confirmed by a molecular method. If positive or greyzone, a second separately collected sample should be submitted for Hepatitis C Virus RNA. Detection and Quantitation by Real-Time Reverse Clinic Assistant-PCR.Current Interpretive data was last revised on 2016. Blood specimen (specimen) 11/11/2017 12:58 PM CDT 11/11/2017 1:15 PM CDT Narrative [facility] ART - 11/11/2017 2:13 PM CDT us Jodi Mckinnon MD LAB MICROBIO LOGY - GENERAL ORDERABLES Edited Result - Final [facility] [place] [address] from Last 3 Months or Most Recently Relevant to Health Maintenance Insurance MEDICARE [facility] MEDICARE [facility] MEDICARE [facility] Advance Directives For more information, please contact: [phone] * Full Code (Latest Code Status on File) Date Activated Date Inactivated Comments 12/01/2019 2:43 PM 12/02/2019 6:43 PM * Full Code Date Activated Date Inactivated Comments 05/12/2018 1:34 PM 05/14/2018 8:07 PM Care Teams Shower Attendant Relationship Specialty Start Date End Date Jagdish Zimmerman MD [address] [facility] [address] [place] [address] PCP - General Family Medicine 01/16/19 William Werner MD Referring Physician Endocrinology Diabetes & Metabolism 05/14/18
--- OUTSIDE RECORDS SUMMARY | 2025-05-16 15:15 | XMS_ITS | Clinical Summary ---
Author Organization [facility] Address [address] [address] Care Team Providers Care Lawn Mower Name Role Phone Jagdish Zimmerman MD Primary Care Provider [phone] Source Comments [facility] [employer],non-owned Affiliates and Associated Physician Practices is amultiple site organization consisting of ambulatory clinics and hospital sitesin [place], [place], [place] and [place]. This disclosure is being madepursuant to the Care Everywhere program and may not contain all information available regarding this patient. Last updated 18.[facility] [employer] Allergies Active Allergy Reactions Criticality Noted Date [...] on file Legal Sex Female 5:27 PM CLIP BAKER Gender Identity Not on file Sexual Orientation [...] 2004 ZOSTER VACCINE (1 of 2) 2004 DEPRESSION SCREENING 07/05/2024 COVID-19 VACCINE (1 - 2023-2 5 season) 2025 INFLUENZA VACCINE (#1) 2025 Respiratory Syncytial Virus [...] patient's age to complete this topic Insurance [facility] MEDICARE ANTHEM MEDICARE ANTHEM Care Teams Lawn Mower Relationship Specialty Start Date End Date Jagdish Zimmerman MD [address] [place] [address] PCP - General 01/06/17
--- OUTSIDE RECORDS SUMMARY | 2025-05-16 15:15 | XMS_ITS | Encounter Summary ---
Author Organization [facility] Address [address] [place] [address] Care Team Providers Care Web Development Consultant Name Role Phone Unavailable Primary Care Provider Unavailabl e Encounter Details Date Type Department Care Team (Late st Contact Info) Description 10/12/[address] [facility] [address] [place] [address] Ramakrishna Short MD [address] [facility] [address] [place] [address] Social History Tobacco Use Types Packs/Day Years Used Date Smoking Tobacco: Never Assessed Comments Unknown Sex and Gender Information Value Date Recorded Sex Assigned at Not on file Legal Sex Female 2:55 AM GRAIN INSPECTOR Gender Identity Not on file Sexual Orientation Not on file documented as of this encounter Plan of Treatment Not on file documented as of this encounter Visit Diagnoses Not on filedocumented in this encounter
--- OUTSIDE RECORDS SUMMARY | 2025-05-16 15:15 | XMS_ITS | Clinical Summary ---
Author Organization [facility] Address [address] Magdalenon: Epic Prelude ADT [place] [address] Care Team Providers Care Store Coordinator Name Role Phone Unavailable Primary Care Provider Unavailabl e Social History Tobacco Use Types Packs/Day Years Used Date Smoking Tobacco: Never Assessed Comments Unknown Sex and Gender Information Value Date Recorded Sex Assigned at Not on file Legal Sex Female 2:55 AM PAINT GRINDER [employer] Gender Identity Not on file Sexual Orientation [...]
--- OUTSIDE RECORDS SUMMARY | 2025-05-16 15:15 | XMS_ITS | Encounter Summary ---
Author Organization [facility] Address [address] [place] [address] Care Team Providers Care Laborer Driver Name Role Phone Unavailable Primary Care Provider Unavailabl e Encounter Details Date Type Department Care Team (Late st Contact Info) Description 10/18/2001 Outpatient [facility] [address] [place] [address] [place] [address] Adali Boss MD NO ADDRESS ON FILE Social History Tobacco Use Types Packs/Day Years Used Date Smoking Tobacco: Never Assessed Comments Unknown Sex and Gender Information Value Date Recorded Sex Assigned at Not on file Legal Sex Female 2:55 AM MOUSE BREEDER Gender Identity Not on file Sexual Orientation Not on file documented as of this encounter Plan of Treatment Not on file documented as of this encounter Visit Diagnoses Not on filedocumented in this encounter
--- OUTSIDE RECORDS SUMMARY | 2025-05-16 15:15 | XMS_ITS | Encounter Summary ---
Author Organization [facility] Address [address] [place] [address] Care Team Providers Care Mathematical Statistician Name Role Phone Unavailable Primary Care Provider Unavailabl e Encounter Details Date Type Department Care Team (Late st Contact Info) Description 10/30/2005 Outpatient [facility] [address] [place] [address] Ramakrishna Short MD [address] [facility] [address] [place] [address] Social History Tobacco Use Types Packs/Day Years Used Date Smoking Tobacco: Never Assessed Comments Unknown Sex and Gender Information Value Date Recorded Sex Assigned at Not on file Legal Sex Female 2:55 AM CASINO CAGE SUPERVISOR Gender Identity Not on file Sexual Orientation Not on file documented as of this encounter Plan of Treatment Not on file documented as of this encounter Visit Diagnoses Not on filedocumented in this encounter
--- OUTSIDE RECORDS SUMMARY | 2025-05-16 15:15 | XMS_ITS | Encounter Summary ---
Author Organization [facility] Address [address] [facility] [place] [address] Care Team Providers Care Clinical Education Academic Coordinator Name Role Phone Jagdish Zimmerman MD Primary Care Provider [phone] Encounter Details Date Type Department Care Team (Late st Contact Info) Description 05/16/2024 Lab Requisition [facility] - DermPath Lab [address] [facility], [place] [address] Madiha Werner MD [address] [facility] 3 [place] [address] Social History Tobacco Use Types Packs/Day Years Used Date Smoking Tobacco: Never Smokeless Tobacco: Never Alcohol Use Standard Drinks/Week Comments No 0 (1 standard drink = 0.6 oz pur e alcohol) Comments Unknown Sex and Gender Information Value Date Recorded Sex Assigned at Not on file Legal Sex Female 5:27 PM SOFT SUGAR CUTTER Gender Identity Not on file Sexual Orientation Not on file documented as of this encounter Plan of Treatment Not on file documented as of this encounter Procedures Procedure Name Priority Date/Time Associated Diagnosis Comments DERMATOPATHOLOGY Routine 05/16/2024 9:16 AM SOFT SUGAR CUTTER documented in this encounter Results * DERMATOPATHOLOGY (05/16/2024 9:16 AM SOFT SUGAR CUTTER) Case Report Dermatopathology Report Case: [id number] Authorizing Provider: Madiha Werner MD Collected: 05/16/2024 09:16 AM Ordering Location: [facility] - Received: 05/17/2024 11:28 AM DermPath Lab Pathologist: Brea Zayas MD Specimen: Skin, crown 2:30 PM [facility] DERMATOPATHOLOGY LABORATORY Final Diagnosis Specimen A. SKIN, crown: HYPERPLASTIC (HYPERTROPHIC) ACTINIC KERATOSIS WITH ADNEXAL EXTENSION (L57.0) 4 2:30 PM [facility] DERMATOPATHOLOGY LABORATORY at 1430 SOFT SUGAR CUTTER Clinical History R/O SCC vs AK, coarse pin papule 4 2:30 PM [facility] DERMATOPATHOLOGY LABORATORY Gross Description Specimen A: Received is one formalin filled container labeled with the patient's name and designated crown. The specimen consists of a shave biopsy measuring 5x5x1 mm. Jar 0. 2:30 PM [facility] DERMATOPATHOLOGY LABORATORY Microscopic Description Specimen A. SKIN, crown: There is hyperkeratosis alternating with parakeratosis. There is epidermal hyperplasia with disorderly maturation of keratinocytes with nuclear pleomorphism confined to the lower half of the epidermis. Adnexal extension of the lesion is seen. 2:30 PM [facility] DERMATOPATHOLOGY LABORATORY Disclaimer An external and internal positive and negative controls are appropriate for the histochemical, immunohistochemical and immunofluorescence stain(s) in this case (if any), except where stated explicitly. The performance characteristics of the stain(s) cited in this report were developed and its performance characteristic determined by the Dermatopathology Laboratory at [facility], directed by Dr. Yamil Thornton. These tests need not be, and therefore are not, approved by the [place] Food and Drug Administration. The tests are used for clinical purposes. Billing Codes Specimen Charges Stain Charges 94391 1 2:30 PM [facility] DERMATOPATHOLOGY LABORATORY Embedded Images 4 2:30 PM [facility] DERMATOPATHOLOGY LABORATORY Pathology/Cytolo gy TISSUE SPECIMEN FROM SKIN / Unknown 05/16/2024 9:16 AM SOFT SUGAR CUTTER 05/17/2024 11:28 AM SOFT SUGAR CUTTER us Madiha Werner MD LAB - PATHOLOGY/CYTOLOGY ORD ERABLES Final Result DERMATOPATHOLOGY LABORATORY [facility] - Department of Dermatology [address], [address] [phone] documented in this encounter Visit Diagnoses Not on filedocumented in this encounter Care Teams Clinical Education Academic Coordinator Relationship Specialty Start Date End Date Jagdish Zimmerman MD [address] [place] [id number] PCP - General 01/06/17 documented as of this encounter
--- OUTSIDE RECORDS SUMMARY | 2025-05-16 15:15 | XMS_ITS | Encounter Summary ---
Author Organization [facility] Address [address] [place] [address] Care Team Providers Care Superintendent Service Name Role Phone Jagdish Zimmerman MD Primary Care Provider [phone] Encounter Details Date Type Department Care Team (Late st Contact Info) Description 01/11/2023 Lab Requisition [facility] - DermPath Lab [address] [facility] [place] [address] Madiha Werner MD [address] [facility] 3 [place] [address] Social History Tobacco Use Types Packs/Day Years Used Date Smoking Tobacco: Never Smokeless Tobacco: Never Alcohol Use Standard Drinks/Week Comments No 0 (1 standard drink = 0.6 oz pur e alcohol) Comments Unknown Sex and Gender Information Value Date Recorded Sex Assigned at Not on file Legal Sex Female 5:27 PM FIRE PROTECTION SPECIALIST Gender Identity Not on file Sexual Orientation Not on file documented as of this encounter Plan of Treatment Not on file documented as of this encounter Procedures Procedure Name Priority Date/Time Associated Diagnosis Comments DERMATOPATHOLOGY Routine 01/11/2023 10:0 4 AM CDT documented in this encounter Results * DERMATOPATHOLOGY (01/11/2023 10:04 AM CDT) Case Report Dermatopathology Report Case: [id number] Authorizing Provider: Madiha Werner MD Collected: 01/11/2023 10:04 AM Ordering Location: [facility] DermPath Lab Received: 01/11/2023 02:56 PM Pathologist: [...] characteristic determined by the Dermatopathology Laboratory at [facility], directed by Dr. Yamil Thornton. These tests need not be, and therefore are not, approved by the [place] Food and Drug Administration. The tests are used for clinical purposes. Billing Codes Specimen Charges Stain Charges 08006 1 3 12:14 PM CDT DERMATOPATHOLOGY LABORATORY Embedded Images 3 12:14 PM CDT DERMATOPATHOLOGY LABORATORY Pathology/Cytolo gy TISSUE SPECIMEN FROM SKIN / Unknown 01/11/2023 10:04 AM CDT 01/11/2023 2:56 PM CDT us Madiha Werner MD LAB - PATHOLOGY/CYTOLOGY ORD ERABLES Final Result DERMATOPATHOLOGY LABORATORY [facility] - Department of Dermatology [facility] [address] [facility], 3rd Floor [address] [phone] documented in this encounter Visit Diagnoses Not on filedocumented in this encounter Care Teams Superintendent Service Relationship Specialty Start Date End Date Jagdish Zimmerman MD [address] [place] [address] PCP - General 01/06/17 documented as of this encounter
--- OUTSIDE RECORDS SUMMARY | 2025-05-16 15:15 | XMS_ITS | Encounter Summary ---
Author Organization [facility] Address [address] [facility] [place] [address] Care Team Providers Care Electrifier Operator Name Role Phone Jagdish Zimmerman MD Primary Care Provider Encounter Details Date Type Department Care Team (Late st Contact Info) Description 03/09/2019 Lab Requisition [facility] DermPath Lab [address] [facility], [place] [address] Madiha Werner MD [address] [facility] 3 [place] [address] Social History Tobacco Use Types Packs/Day Years Used Date Smoking Tobacco: Never Smokeless Tobacco: Never Alcohol Use Standard Drinks/Week Comments No 0 (1 standard drink = 0.6 oz pur e alcohol) Comments Unknown Sex and Gender Information Value Date Recorded Sex Assigned at Not on file Legal Sex Female 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 Gender Identity Not on file Sexual Orientation Not on file documented as of this encounter Plan of Treatment Not on file documented as of this encounter Procedures Procedure Name Priority Date/Time Associated Diagnosis Comments DERMATOPATHOLOGY Routine 03/08/2019 12:0 0 AM CDT documented in this encounter Results * DERMATOPATHOLOGY (03/08/2019 12:00 AM CDT) Case Report Dermatopathology Report Case: [id number] Authorizing Provider: Madiha Werner MD Collected: 03/08/2019 12:00 AM Ordering Location: [facility] DermPath Lab Received: 03/09/2019 12:23 PM Pathologist: Pelon Thornton MD Specimen: Skin, right arm 1:29 PM CDT DERMATOPATHOLOGY LABORATORY Final Diagnosis Specimen A. 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 [employer] crusted papule. 1:29 PM CDT DERMATOPATHOLOGY LABORATORY Gross Description Specimen A: Received is one formalin filled container labeled with the patient's name and designated right arm. The specimen consists of a shave measuring [id number]. Jar 0. 1:29 PM CDT DERMATOPATHOLOGY LABORATORY [...] characteristic determined by the Dermatopathology Laboratory at [facility], directed by Dr. Yamil Thornton. These tests need not be, and therefore are not, approved by the [place] Food and Drug Administration. The tests are used for clinical purposes. Billing Codes Specimen Charges Stain Charges 69464 1 1:29 PM CDT DERMATOPATHOLOGY LABORATORY Embedded Images 1:29 PM CDT DERMATOPATHOLOGY LABORATORY Pathology/Cytolog y TISSUE SPECIMEN FROM SKIN / Unknown 03/08/2019 03/09/2019 12:23 PM CDT us Madiha Werner MD LAB - PATHOLOGY/CYTOLOGY ORD ERABLES Final Result DERMATOPATHOLOGY LABORATORY [facility] - Department of Dermatology [address] [place] [address], 5th Floor Lab [address] [place], [place] [id number] [place] [address] documented in this encounter Visit Diagnoses Not on filedocumented in this encounter Care Teams Electrifier Operator Relationship Specialty Start Date End Date Jagdish Zimmerman MD [address] [place] [address] PCP - General 01/06/17 documented as of this encounter
--- OUTSIDE RECORDS SUMMARY | 2025-05-16 15:15 | XMS_ITS | Encounter Summary ---
Author Organization [facility] Address [address] [place] [address] Care Team Providers Care Vp Product Marketing Name Role Phone Unavailable Primary Care Provider Unavailabl e Encounter Details Date Type Department Care Team (Late st Contact Info) Description 11/24/2005 Outpatient [facility] [address] [place] [facility] 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
--- OUTSIDE RECORDS SUMMARY | 2025-05-16 15:15 | XMS_ITS | Encounter Summary ---
Author Organization [facility] Address [address] [place] [address] Care Team Providers Care Land Surveyor Manager Name Role Phone Unavailable Primary Care Provider Unavailabl e Encounter Details Date Type Department Care Team (Late st Contact Info) Description 11/01/2001 [facility] [address] [place] [address] [place] [address] Adali Boss MD NO ADDRESS ON FILE Social History Tobacco Use Types Packs/Day Years Used Date Smoking Tobacco: Never Assessed Comments Unknown Sex and Gender Information Value Date Recorded Sex Assigned at Not on file Legal Sex Female 2:55 AM LPN HOME [facility] Gender Identity Not on file Sexual Orientation Not on file documented as of this encounter Plan of Treatment Not on file documented as of this encounter Visit Diagnoses Not on filedocumented in this encounter
--- OUTSIDE RECORDS SUMMARY | 2025-05-16 15:16 | XMS_ITS | Patient Health Record ---
Author Organization [facility] Address [address] [place], [place] [id number] Care Team Providers Care Stenotypist Name Role Phone Zimmerman Jagdish Primary Care Provider ROB Gregory Unavailable [phone] Allergies Allergen (clinical drug ingredient) Drug/Non Drug [...] Solution Pen-injector as directed Subcutaneous Act lyndsey Montelukast Sodium 10 MG Tablet 1 tablet [...] Solution Auto-injector as directed Subcutaneous Ac tive Losartan Potassium A ctive HumaLOG 100 UNIT/ML Solution Cartridge as directed Subcutaneous Active Dexcom G7 Sensor - Miscellaneous as directed Active Immunizations Vaccine Route Administration Date Status Comme nts Influenza, high dose seasonal Unknown 04/05/2023 Admini stered Influenza, unspecified formulation Unknown 04/29/2012 A dministered Influenza, unspecified formulation Unknown 05/16/2013 A dministered Influenza, unspecified formulation Unknown 04/15/2018 A dministered Influenza, unspecified formulation Unknown 03/16/2020 A dministered Pneumococcal polysaccharide PPV23 Unknown 05/23/2020 Ad ministered Tdap Unknown 03/10/2007 Administered Tdap Unknown 03/16/2013 Administered Social History Social History Additional Details Category Social Info Options Details Migrated Social History Migrated Social History History of tobacco use : , Smoking Status : Never used tobacco Vital Signs Height-cm 167.64 cm 05/10/2025 Weight-kg 75.75 kg 05/10/2025 Height 66.00 in 05/10/2025 Weight 167 lbs 05/10/2025 BMI 26.95 kg/m2 05/10/2025 Encounters Encounter Location Date Provider Diagnosis [facility] [address] [phone] 08/09/2024 ROB ANGULO Fungal infection of nail B35.1 ; Pain in right toe(s) M79.674 ; Pain in left toe(s) M79.675 ; Atherosclerosis of [place] arteries of extremities with intermittent claudication, bilateral legs I70.213 ; Acquired keratoderma L85.1 ; Type 2 diabetes mellitus with other diabetic neurological complication E11.49 and Difficulty in walking R26.2 [facility] [address] [phone] 11/09/2024 ROB ANGULO Fungal infection of nail B35.1 ; Pain in right toe(s) M79.674 ; Pain in left toe(s) M79.675 ; Atherosclerosis of [place] arteries of extremities with intermittent claudication, bilateral legs I70.213 ; Acquired keratoderma L85.1 ; Type 2 diabetes mellitus with other diabetic neurological complication E11.49 and Difficulty in walking R26.2 [facility] [address] [phone] 02/08/2025 ROB ANGULO Fungal infection of nail B35.1 ; Pain in right toe(s) M79.674 ; Pain in left toe(s) M79.675 ; Atherosclerosis of [place] arteries of extremities with intermittent claudication, bilateral legs I70.213 ; Acquired keratoderma L85.1 ; Type 2 diabetes mellitus with other diabetic neurological complication E11.49 and Difficulty in walking R26.2 [facility] [address] [place], [place] [phone] 05/10/2025 ROB ANGULO Assessments Encounter Date Diagnosis (ICD Code) Assessment [...] development of corns/rubbing injuries 11/09/2024 Atherosclerosis of [place] arteries of extremities with intermittent claudication, bilateral legs (ICD-10 - I70.213) 02/08/2025 Atherosclerosis of [place] arteries of extremities with intermittent claudication, bilateral legs (ICD-10 - I70.213) 08/09/2024 Atherosclerosis of [place] arteries of extremities with intermittent claudication, bilateral legs (ICD-10 - I70.213) 08/09/2024 Acquired keratoderma (ICD-10 - L85.1) 02/08/2025 [...] cut and pared utilizing a #15 blade 05/10/2025 Other Preventing Falls: Care Instructions material was published Plan Of Treatment Next Appt Details Provider Name:ROB Bird ANGULO, 08/02/2025 09:00:00 AM, [address], [place], [place], [id number], Insurance Providers Payer Name Payer Address Payer Phone Subscriber Number Group Number Insured Name Patient Relationship to Insured Coverage Start Date Coverage End Date Medicare Part B [place] [address] [place] [address] [id number] YANNA MARIE Self - patient is the insured [facility] ([facility]) ATTN CLAIMS [address] [place] [address] [id number] YANNA MARIE Self - patient is the insured Medical (General) History Surgical History Surgery Date(Month/Year) Hysterectomy 12/1992 deviated septum 11/1994 lithotripsy (see list) [phone] herniated disk/lower back surgery 07/2003 Shoulder repair, right side 08/2005 gastric bypass 02/2018 Carpal Tunnel release 05/13/2015 panniculectomy 12/01/2019 cataract surgery 2009,2014
== END 2025-05-16 14:18 | disposition home or self-care (01) ==
PROVIDERS: PCP Family Medicine; Visit Provider Urology
DX: N20.0 Calculus of kidney (principal)
CPT/HCPCS: 74018